=== PATIENT | male | born 1950 | race Caucasian/White ===

== ENCOUNTER 2018-10-16 13:59 | Inpatient (IN) ==
[2018-10-16] MEDS ORDERED: 0.9 % Sodium Chloride 1,000 ML IVC ONE (15:07)
[2018-10-16] MEDS ORDERED: Cefepime HCl 2,000 MG in Water for inj. (sterile) 20 ML IVP ONE (15:07)
--- NOTE | 2018-10-16 15:15 | Emergency Department Note ---
Disposition Clinical Impression: Necrosis of toe, Osteomyelitis Disposition: Admitted As Inpatient Condition: Good Time of Disposition: 15:44 Extremity Problem HPI - General Chief complaint: ED Extremity Problem,Nontraumatic Stated complaint: Bi-Lateral foot Diabetic ulcers Time Seen by Provider: 10/16/18 14:49 Source: patient Limitations: no limitations Nursing Notes Reviewed: Yes Vital Signs Reviewed: Yes - History of Present Illness HPI Narrative: Male patient is anxious and complaining of ulcers to his feet. Was seen at [facility] over the weekend and placed on antibiotics for them and was noted to be a new onset diabetes mellitus started on metformin. He is unaware of how long the setting going on however they do appear to have been present for quite some time. Denies any fevers or chills did follow-up with Dr. Calle our players [employer] representative this morning and was told to come to the emergency department. States that he does have pain to the toe on the left foot. He has no other symptoms currently. Denies any fevers or chills. Denies any nausea vomiting or diarrhea. Pain Scale: 1 - Related Data Home Medications Medication Instructions Recorded Confirmed Naproxen [Naprosyn] 500 mg PO DAILY PRN 10/16/18 10/16/18 Previous Rx's Medication Instructions Recorded metFORMIN [Glucophage] 500 mg PO BIDWM 30 Days #60 tablet 10/14/18 Allergies Allergy/AdvReac Type Severity Reaction Status Date / Time No Known Allergies Allergy Verified 10/14/18 11:59 All systems ED: reviewed and negative except as stated. Review of Systems: As Per HPI Constitutional: Denies: fever, chills Cardiovascular: Denies: chest pain Respiratory: Denies: cough, dyspnea Gastrointestinal: Denies: abdominal pain, nausea, vomiting, diarrhea Genitourinary: Denies: urgency Musculoskeletal: Reports: other (Left foot pain). Denies: back pain, neck pain Integumentary: Reports: lesions (2 second toe on both feet) Neurological: Denies: weakness Past Medical History - Past Medical History Attestation: Yes The following information was validated with the patient. Source: patient Medical history: Reports: diabetes Psychiatric history: Reports: no psych history - Social History Smoking Status: Current every day smoker Smokeless Tobacco Status: No Alcohol use: Reports: occasionally Drug use: Reports: none Physical Exam - General Limitations: no limitations General appearance: alert, in no apparent distress - Head Head exam: atraumatic, normocephalic, normal inspection - Eye Eye exam: Present: normal appearance, PERRL, EOMI - ENT ENT exam: normal exam, normal oropharynx, mucous membranes moist - Neck Neck exam: Present: normal inspection, full ROM, trachea midline. Absent: tenderness, meningismus - Chest Chest inspection: Present: normal inspection, symmetric chest wall rise - Respiratory Respiratory exam: Present: normal lung sounds bilaterally. Absent: respiratory distress, accessory muscle use - Cardiovascular Cardiovascular exam: Present: regular rate, normal rhythm, normal heart sounds - Abdominal Exam Abdominal exam: Present: soft, Non-Tender. Absent: tenderness, distention, guarding, rebound, rigidity, organomegaly, Bowman's sign, Rovsing's sign, tenderness at McBurney's Point - Expanded Upper Extremity Exam Shoulder exam: Present: normal inspection, full ROM Arm exam: Present: normal inspection, full ROM Elbow exam: Present: normal inspection, full ROM Forearm/Wrist exam: Present: normal inspection, full ROM Hand exam: Present: normal inspection, full ROM Vascular exam: Normal: capillary refill, radial pulse - Expanded Lower Extremity Exam Hip/Pelvis exam: Present: normal inspection, full ROM Upper leg exam: Present: normal inspection, full ROM Knee exam: Present: normal inspection, full ROM Lower leg exam: Present: normal inspection, full ROM Ankle exam: Present: normal inspection, full ROM Foot/toe exam: Present: full ROM, other (No crepitus noted to feet bilaterally.) 1 - swelling, erythema, blackend area to the distal most aspect. blanching of the toe. Sensation in tact 2 - swelling, erythema, blackend area to distal half. clear to purulent discharge. sensation intact 3 - erythema. Neurovascular/Tendon exam: Absent: motor deficit, sensory deficit, tendon deficit - Neurological Exam Neurological exam: Present: alert, oriented X3 - Psychiatric Psychiatric exam: Present: normal affect, normal mood - Skin Skin exam: Present: warm Course Course Narrative: Male patient sitting to the emergency department by podiatry for nonhealing wound to his lower extremity straight was placed on antibiotics over the weekend. New-onset diabetes. No history of peripheral vascular disease however the toes do have a black appearance to the distal aspect of them. The left toe does have a clear to purulent discharge noted. There is some erythema to the left forefoot. No crepitus noted throughout. He denies any shortness of breath or chest pain. Denies any fevers or chills. He otherwise appears well. We will get a basic lab workup on patient inclusive of blood cultures. We will start patient on vancomycin and cefepime at this time. - Consultations Consultation #1: I spoke with Dr Calle. He is aware of the patient. He is agreeable with our plan. Had no further suggestions. Requesting that we admit the patient to the hospitalist at this time. Time: 15:15 Consultation #2: Dr Lawrence accepted Pt in stable condition. Time: 15:58 Vital Signs Temperature 98.7 F 10/16/18 14:14 Pulse Rate 100 10/16/18 14:14 Respiratory Rate 18 10/16/18 14:14 Blood Pressure 155/79 10/16/18 14:14 O2 Sat by Pulse Oximetry 96 10/16/18 14:14 Temperature 98.7 F 10/16/18 14:14 Pulse Rate 89 10/16/18 15:37 Respiratory Rate 16 10/16/18 15:37 Blood Pressure 172/88 10/16/18 15:37 O2 Sat by Pulse Oximetry 100 10/16/18 15:37 Oxygen Delivery Oxygen Delivery Room Air Extremity Problem, Nontraumati - Medical Records Medical records reviewed: Yes I reviewed the patient's medical records. - Lab Data Lab results reviewed: Yes I reviewed the patient's lab results. Result diagrams: 10/16/18 15:16 10/16/18 15:16 Lab Results 10/16/18 10/16/18 10/16/18 Range/Units 15:16 15:16 15:16 WBC 14.8 H (4.3-11.1) K/mcL RBC 4.46 (4.19-5.50) M/mcL Hgb 13.4 (12.9-16.9) g/dL Hct 37.6 (37.5-50.1) % MCV 84.3 (83.0-100.0) fL MCH 30.0 (28.0-33.3) pg MCHC 35.6 H (31.6-35.5) g/dL RDW 12.4 (11.5-14.5) % Plt Count 318 (140-400) K/mcL MPV 10.0 (9.4-12.4) fL Immature Gran % 0.5 (0-4) % Seg Neutrophils % 85.4 % Lymphocytes % 7.1 % Monocytes % 6.6 % Eosinophils % 0.1 % Basophils % 0.3 % Neutrophils # 12.6 H (1.6-8.9) K/mcL Lymphocytes # 1.1 (0.6-4.6) K/mcL Monocytes # 1.0 (0.0-1.3) K/mcL Eosinophils # 0.0 (0.0-0.6) K/mcL Basophils # 0.0 (0.0-0.2) K/mcL Sodium 137 (136-145) mEq/L Potassium 4.2 (3.5-5.1) mEq/L Chloride 102 (98-107) mEq/L Carbon Dioxide 26 (23-29) mEq/L BUN 15 (8-23) mg/dL Creatinine 0.81 (0.70-1.30) mg/dL Est GFR ( Amer) > 60 (> 60) Est GFR (Non-Af Amer) > 60 (> 60) BUN/Creatinine Ratio 19 (6-26) Glucose 290 H (70-105) mg/dL Calculated Osmolality 295 (280-300) Lactic Acid 1.1 (0.5-2.2) mmol/L Calcium 9.0 (8.6-10.3) mg/dL Phosphorus 3.4 (2.7-4.5) mg/dL Magnesium 1.6 (1.6-2.6) mg/dL Total Bilirubin 1.3 H (0.3-1.0) mg/dL Direct Bilirubin 0.3 H (0.0-0.2) mg/dL Indirect Bilirubin 1.0 (0.0-1.2) mg/dL AST 13 (13-39) Units/L ALT 13 (7-52) Units/L Alkaline Phosphatase 92 (34-104) Units/L Serum Total Protein 6.5 (6.4-8.9) g/dL Albumin 3.5 (3.5-5.7) g/dL Globulin 3.0 (2.4-3.5) g/dL Albumin/Globulin Ratio 1.2 (1.1-2.2) - Radiology Data Radiology results reviewed: Yes I reviewed the patient's radiology results. - EKG Data EKG attestation: Yes I reviewed and interpreted this EKG. EKG results narrative: Normal sinus rhythm at a rate 88. MS interval is 170. QRS duration is 81. QT is 365. QTC is 442. No signs of acute ischemia. Good R-wave progression. No signs of WPW or Brugada. No significant change from previous EKG dated 02/19/2003. Attestation Statement - Attestation Attestation: I, Sai Freeman, examined this patient and my medical decision-making was reviewed with the AUTO TRANSPORT DRIVER/PA/Advanced Practice Nurse/Resident Physician. I agree with the documented findings, disposition and treatment plan as described except to the extent set forth below. 68-year-old male presents emergency Department for likely gangrenous necrosis to the toes of bilateral feet. Patient's symptoms have been present worsening over the past few weeks to months. He was evaluated by the players club representative 2 cm emergency department for further evaluation and admission to the hospital for likely surgery. Patient was started on antibiotics emergency department. He feels comfortable with the plan for admission to hospital for further care and evaluation.
[2018-10-16] MEDS ORDERED: Tdap (Boostrix) Vaccine 0.5 ML SYRINGE IM ONE (15:18)
[2018-10-16 15:34] LABS: Basophils % 0.3 %; Eosinophils % 0.1 %; Hematocrit 37.6 % (37.5-50.1); Hemoglobin 13.4 g/dL (12.9-16.9); Immature Granulocytes % 0.5 % (0-4); Lymphocytes # 1.1 K/mcL (0.6-4.6); Lymphocytes % 7.1 %; Mean Corpuscular HGB Conc 35.6 g/dL (31.6-35.5); Mean Corpuscular Volume 84.3 fL (83.0-100.0); Monocytes % 6.6 %; Neutrophils # 12.6 K/mcL (1.6-8.9); Platelet Count 318 K/mcL (140-400); Red Blood Count 4.46 M/mcL (4.19-5.50); Red Cell Distribution Width 12.4 % (11.5-14.5); Segmented Neutrophils % 85.4 %; White Blood Count 14.8 K/mcL (4.3-11.1)
[2018-10-16 15:54] LABS: Alanine Aminotransferase 13 Units/L (7-52); Albumin 3.5 g/dL (3.5-5.7); Albumin/Globulin Ratio 1.2 (1.1-2.2); Alkaline Phosphatase 92 Units/L (34-104); Aspartate Amino Transferase 13 Units/L (13-39); BUN/Creatinine Ratio 19 (6-26); Bilirubin,Direct 0.3 mg/dL (0.0-0.2); Bilirubin,Total 1.3 mg/dL (0.3-1.0); Blood Urea Nitrogen 15 mg/dL (8-23); Carbon Dioxide 26 mEq/L (23-29); Chloride 102 mEq/L (98-107); Glucose 290 mg/dL (70-105); Magnesium 1.6 mg/dL (1.6-2.6); Osmolality,Calculated 295 (280-300); Phosphorous 3.4 mg/dL (2.7-4.5); Potassium 4.2 mEq/L (3.5-5.1); Sodium 137 mEq/L (136-145); Total Protein 6.5 g/dL (6.4-8.9); eGFR For African Americans > 60 (> 60); eGFR For Non-African Americans > 60 (> 60)
[2018-10-16] MEDS ORDERED: Acetaminophen 325 MG TABLET PO PRN (17:17)
[2018-10-16] MEDS ORDERED: Naloxone 0.4 MG/ML INJ IVP PRN (17:17)
[2018-10-16] MEDS ORDERED: traMADol 50 MG TABLET PO PRN (17:29)
[2018-10-16] MEDS ORDERED: Dextrose Gel 15 GM/37.5 ML TUBE PO PRN ×2 (17:31)
[2018-10-16] MEDS ORDERED: D5% in Water 1,000 ML IVC PRN (17:31)
[2018-10-16] MEDS ORDERED: *HR* Dextrose 50 % in Water (Syg) 50 ML SYRINGE IVP PRN (17:31)
--- NOTE | 2018-10-16 17:40 | Internal Med History&Physical ---
<Anderson Hodges Violette - Last Filed: 10/16/18 17:37> Date of Encounter: 10/16/18 Time of Encounter: 17:38 Internal Medicine - H&P: HPI Chief complaint: foot ulcers Admitted From: Emergency Dept Plans for Post Hospital Care: Home History of present illness: Mr. Peña is a 68 year old male with a past medical history of diabetes who presented to the emergency department with the chief complaint of bilateral toe ulcers that have been present for approximately 1 month. There is an ulcer present on the left second toe and the right third toe, he does not report traumatic onset, he states they have been worsening over the last month, they are minimally painful, have had some drainage. He has been treated outpatient with amoxicillin without improvement. He did see fur dressing supervisor Dr. Calle today who sent the patient to the emergency department to be admitted for IV antibiotics. Patient has not had previous issues with foot ulcerations. He denies any associated fever, chills, headache or lightheadedness, nausea or vomiting, chest pain or shortness of breath. Chest x-ray and bilateral feet x-rays were performed in the emergency department. Chest x-ray demonstrated no acute process, right third toe had lucency in the distal phalanx possibly representing acute osteomyelitis, left second toe did not have evidence of osteomyelitis. He was started on cefepime and vancomycin in the emergency department along with a 1 L bolus of normal saline. On my evaluation the patient did confirm the above history. He also denied drug or significant alcohol use, reported smoking a tobacco pipe. He states his mother had diabetes but denies history of diabetes in other family members. I informed him our plan was to admit him, continue IV antibiotics, and have podiatry see him in the morning for recommendations on further treatment. He stated he understood and agreed with the plan of care. Past Med Surg Social Fam HX - Past Medical History Medical history: diabetes Psychiatric history: no psych history - Social History Smoking Status: Current every day smoker Smokeless Tobacco Status: No Alcohol use: occasionally Drug use: none - Family History Mother Hx Family Endocrine Disorder: Yes (Diabetes) Internal Medicine - H&P: Meds metFORMIN [Glucophage] 500 mg PO BIDWM 30 Days #60 tablet 10/14/18 [Rx] Naproxen [Naprosyn] 500 mg PO DAILY PRN 10/16/18 [History] Allergy/AdvReac Type Severity Reaction Status Date / Time No Known Allergies Allergy Verified 10/14/18 11:59 All Systems PM: A 10-system review of systems was performed and is negative for pertinent findings except as documented above in the HPI. Review of systems: 10 point review of systems negative except as otherwise mentioned in the history of present illness. - Constitutional Vitals: Temp Pulse Resp BP Pulse Ox 98.7 F 90 16 186/86 99 10/16/18 14:14 10/16/18 16:35 10/16/18 16:35 10/16/18 16:35 10/16/18 16:35 Exam: No acute distress, alert and oriented 3 Pupils equal and reactive to light, extraocular movements intact Heart in regular rate and rhythm without murmur or gallop auscultated Lungs clear to auscultation without specific adventitia identified Abdomen soft and nontender with normal bowel sounds present Bilateral lower extremities nonedematous with sensation intact Skin warm and dry without defects except as noted below Left second toe is edematous and cyanotic with black eschar present and multiple open areas with serous sanguinous and purulent drainage present Right third toe is edematous and cyanotic with black eschar present and multiple open areas with serosanguineous and purulent drainage present as well Both toes appear to have areas of necrosis, the toes are minimally tender to palpation, no areas of ulceration are noted elsewhere on the feet Internal Med - H&P Results - Labs CBC & Chem 7: 10/16/18 15:16 10/16/18 15:16 Labs: Short CBC 10/16/18 Range/Units 15:16 WBC 14.8 H (4.3-11.1) K/mcL Hgb 13.4 (12.9-16.9) g/dL Hct 37.6 (37.5-50.1) % Plt Count 318 (140-400) K/mcL Neutrophils # 12.6 H (1.6-8.9) K/mcL BMP 10/16/18 15:16 Sodium 137 Potassium 4.2 Chloride 102 Carbon Dioxide 26 BUN 15 Creatinine 0.81 Glucose 290 H Calcium 9.0 Liver Function 10/16/18 Range/Units 15:16 Total Bilirubin 1.3 H (0.3-1.0) mg/dL Direct Bilirubin 0.3 H (0.0-0.2) mg/dL AST 13 (13-39) Units/L ALT 13 (7-52) Units/L Alkaline Phosphatase 92 (34-104) Units/L Albumin 3.5 (3.5-5.7) g/dL - Impressions ITS Impressions Foot X-Ray 10/16/18 15:10 IMPRESSION: 1. No acute cardiopulmonary disease. 2. Stable mild lucency involving the distal phalanx of the right 3rd toe, possibly presenting acute osteomyelitis. Suggest clinical correlation and consider further characterization with a follow-up right foot MRI. There remain multiple punctate radiodensities within the soft tissues of the right 3rd toe, possibly retained foreign bodies. 3. No radiographic evidence of osteomyelitis involving the left foot. There does remain a stable unchanged age-indeterminate fracture of the 2nd middle phalanx of the left foot. D/ /16/2018 16:12:07 Kelby Grajeda MD / reta Interpreting Provider: Kelby Grajeda MD Foot X-Ray 10/16/18 15:10 IMPRESSION: 1. No acute cardiopulmonary disease. 2. Stable mild lucency involving the distal phalanx of the right 3rd toe, possibly presenting acute osteomyelitis. Suggest clinical correlation and consider further characterization with a follow-up right foot MRI. There remain multiple punctate radiodensities within the soft tissues of the right 3rd toe, possibly retained foreign bodies. 3. No radiographic evidence of osteomyelitis involving the left foot. There does remain a stable unchanged age-indeterminate fracture of the 2nd middle phalanx of the left foot. D/ : / 10/16/2018 16:12:07 Kelby Grajeda MD / reta Interpreting Provider: Kelby Grajeda MD Chest X-Ray 10/16/18 15:13 IMPRESSION: 1. No acute cardiopulmonary disease. 2. Stable mild lucency involving the distal phalanx of the right 3rd toe, possibly presenting acute osteomyelitis. Suggest clinical correlation and consider further characterization with a follow-up right foot MRI. There remain multiple punctate radiodensities within the soft tissues of the right 3rd toe, possibly retained foreign bodies. 3. No radiographic evidence of osteomyelitis involving the left foot. There does remain a stable unchanged age-indeterminate fracture of the 2nd middle phalanx of the left foot. D/ / 10/16/2018 16:12:07 Kel[facility]eda MD / [facility] Inter[facility]ting Provider: Kelby Grajeda MD - Assessment and Plan (1) Osteomyelitis Current Visit: Yes Status: Suspected Assessment and plan: Patient presented to the emergency department with wounds to the left second and third right toes These have been present for a month and appeared to be chronic diabetic ulcers They have been worsening over the month, and on exam appear necrotic He did see the fur dressing supervisor outpatient who recommended presenting to the emergency department X-rays showed signs concerning for osteomyelitis, vancomycin and cefepime were initiated Patient was admitted to the hospital service and podiatry was consulted Patient did have one reading of tachycardia and does have leukocytosis Clinically the patient does not appear septic, is afebrile, and is also hypertensive He was given 1 L fluid bolus in the emergency department, we will not continue fluid boluses due to clinically not appearing septic and hypertension We did continue IV cefepime and IV vancomycin Patient has no previous cardiovascular history and has no limitations when asked about metabolic equivalents We did start low-dose beta sixto for hypertension, the patient does not appear to have any contraindications to surgery if that is necessary Patient is nothing by mouth at midnight in anticipation of podiatry intervention tomorrow if necessary Qualifiers: Osteomyelitis type: unspecified type Osteomyelitis location: foot Laterality: unspecified laterality Qualified Code(s): M86.9 - Osteomyelitis, unspecified (2) Foot ulcer Current Visit: Yes Status: Acute Qualifiers: Laterality: unspecified laterality Non-pressure ulcer stage: unspecified non-pressure ulcer stage Qualified Code(s): L97.509 - Non-pressure chronic ulcer of other part of unspecified foot with unspecified severity (3) Diabetes Current Visit: Yes Status: Chronic Qualifiers: Diabetes mellitus type: type 2 Diabetes mellitus middle or intermediate school principal insulin use: without middle or intermediate school principal use Diabetes mellitus complication status: with skin complications Diabetes mellitus complication detail: with foot ulcer Qualified Code(s): E11.621 - Type 2 diabetes mellitus with foot ulcer; L97.509 - Non-pressure chronic ulcer of other part of unspecified foot with unspecified severity - Time Spent With Patient Total time spent is greater than 50% in coordination of care (as documented) at patient's floor/unit and/or counseling patient: <Chino Shepard - Last Filed: 10/16/18 18:47> Date of Encounter: 10/16/18 Internal Medicine - H&P: HPI History of present illness: Mr. Peña is a 68 year old male All Systems PM: A 10-system review of systems was performed and is negative for pertinent findings except as documented above in the HPI. - Constitutional Vitals: Temp Pulse Resp BP Pulse Ox 98.7 F 90 16 186/86 99 10/16/18 14:14 10/16/18 16:35 10/16/18 16:35 10/16/18 16:35 10/16/18 16:35 Internal Med - H&P Results - Labs CBC & Chem 7: 10/16/18 15:16 10/16/18 15:16 Labs: Short CBC 10/16/18 Range/Units 15:16 WBC 14.8 H (4.3-11.1) K/mcL Hgb 13.4 (12.9-16.9) g/dL Hct 37.6 (37.5-50.1) % Plt Count 318 (140-400) K/mcL Neutrophils # 12.6 H (1.6-8.9) K/mcL BMP 10/16/18 15:16 Sodium 137 Potassium 4.2 Chloride 102 Carbon Dioxide 26 BUN 15 Creatinine 0.81 Glucose 290 H Calcium 9.0 Liver Function 10/16/18 Range/Units 15:16 Total Bilirubin 1.3 H (0.3-1.0) mg/dL Direct Bilirubin 0.3 H (0.0-0.2) mg/dL AST 13 (13-39) Units/L ALT 13 (7-52) Units/L Alkaline Phosphatase 92 (34-104) Units/L Albumin 3.5 (3.5-5.7) g/dL - Impressions ITS Impressions Foot X-Ray 10/16/18 15:10 IMPRESSION: 1. No acute cardiopulmonary disease. 2. Stable mild lucency involving the distal phalanx of the right 3rd toe, possibly presenting acute osteomyelitis. Suggest clinical correlation and consider further characterization with a follow-up right foot MRI. There remain multiple punctate radiodensities within the soft tissues of the right 3rd toe, possibly retained foreign bodies. 3. No radiographic evidence of osteomyelitis involving the left foot. There does remain a stable unchanged age-indeterminate fracture of the 2nd middle phalanx of the left foot. D/ /16/2018 16:12:07 Kelby Grajeda MD / reta Interpreting Provider: Kelby Grajeda MD Foot X-Ray 10/16/18 15:10 IMPRESSION: 1. No acute cardiopulmonary disease. 2. Stable mild lucency involving the distal phalanx of the right 3rd toe, possibly presenting acute osteomyelitis. Suggest clinical correlation and consider further characterization with a follow-up right foot MRI. There remain multiple punctate radiodensities within the soft tissues of the right 3rd toe, possibly retained foreign bodies. 3. No radiographic evidence of osteomyelitis involving the left foot. There does remain a stable unchanged age-indeterminate fracture of the 2nd middle phalanx of the left foot. D/ /16/2018 16:12:07 Kelby Grajeda MD / reta Interpreting Provider: Kelby Grajead MD Chest X-Ray 10/16/18 15:13 IMPRESSION: 1. No acute cardiopulmonary disease. 2. Stable mild lucency involving the distal phalanx of the right 3rd toe, possibly presenting acute osteomyelitis. Suggest clinical correlation and consider further characterization with a follow-up right foot MRI. There remain multiple punctate radiodensities within the soft tissues of the right 3rd toe, possibly retained foreign bodies. 3. No radiographic evidence of osteomyelitis involving the left foot. There does remain a stable unchanged age-indeterminate fracture of the 2nd middle phalanx of the left foot. D/ /16/2018 16:12:07 Kelby Grajeda MD / reta Interpreting Provider: Kelby Grajeda MD - Assessment and Plan (1) Diabetes Current Visit: Yes Status: Chronic Qualifiers: Diabetes mellitus type: type 2 Diabetes mellitus jail insulin use: without middle or intermediate school principal use Diabetes mellitus complication status: with skin complications Diabetes mellitus complication detail: with foot ulcer Qualified Code(s): E11.621 - Type 2 diabetes mellitus with foot ulcer; L97.509 - Non-pressure chronic ulcer of other part of unspecified foot with unspecified severity (2) Osteomyelitis Current Visit: Yes Status: Suspected Qualifiers: Osteomyelitis type: unspecified type Osteomyelitis location: foot Laterality: unspecified laterality Qualified Code(s): M86.9 - Osteomyelitis, unspecified (3) Tobacco abuse Current Visit: Yes Status: Chronic - Time Spent With Patient Total time spent is greater than 50% in coordination of care (as documented) at patient's floor/unit and/or counseling patient: - Attending Attestation I examined this patient and my medical decision-making was reviewed with the Resident Physician on 10/16/18. I agree with the documented findings, disposition and treatment plan as described except to the extent set forth below. Mr Peña is 68 y/o male with DM sent to ED due to infected bilateral toes. He was started on IV abx and placed in hospital. No gas gangrene on xray. To go to OR tomorrow. He denies CP, SOB, dizziness. Exam Alert. Comfortable NC. Mucus membranes dry EOMI. Neck supple Heart reg and not tachy No wheeze abd soft Erythema bilateral feet - described above. I/P 1. Cellulitis and possible OM both feet - IV abx started. Podiatry consult. NPO midnight. 2. DM - coverage ordered. Further diagnoses and plan as above.
[2018-10-17] MEDS: Cefepime HCl 2,000 MG in Water for inj. (sterile) 20 ML IVP SCH ×2 (04:11→15:06)
[2018-10-17 06:12] LABS: Basophils % 0.4 %; Eosinophils # 0.1 K/mcL (0.0-0.6); Eosinophils % 1.1 %; Hematocrit 32.7 % (37.5-50.1); Immature Granulocytes % 0.6 % (0-4); Lymphocytes # 1.4 K/mcL (0.6-4.6); Lymphocytes % 13.8 %; Mean Corpuscular HGB Conc 35.8 g/dL (31.6-35.5); Mean Corpuscular Hemoglobin 30.9 pg (28.0-33.3); Mean Corpuscular Volume 86.3 fL (83.0-100.0); Mean Platelet Volume 10.2 fL (9.4-12.4); Monocytes % 9.9 %; Neutrophils # 7.4 K/mcL (1.6-8.9); Platelet Count 275 K/mcL (140-400); Red Blood Count 3.79 M/mcL (4.19-5.50); Red Cell Distribution Width 12.5 % (11.5-14.5); Segmented Neutrophils % 74.2 %
[2018-10-17 06:13] LABS: Hemoglobin 11.7 g/dL (12.9-16.9)
[2018-10-17 06:40] LABS: BUN/Creatinine Ratio 19 (6-26); Blood Urea Nitrogen 14 mg/dL (8-23); Calcium 8.4 mg/dL (8.6-10.3); Carbon Dioxide 24 mEq/L (23-29); Chloride 106 mEq/L (98-107); Glucose 233 mg/dL (70-105); Osmolality,Calculated 296 (280-300); Potassium 4.3 mEq/L (3.5-5.1); Sodium 139 mEq/L (136-145); eGFR For African Americans > 60 (> 60); eGFR For Non-African Americans > 60 (> 60)
[2018-10-17] MEDS: Insulin LISPRO 300 UNITS/3 ML VIAL SQ SCH ×3 (08:25→17:17)
--- NOTE | 2018-10-17 08:43 | Internal Med Progress Note ---
<Anderson Hodges - Last Filed: 10/17/18 15:16> Hospitalist Progress Note - Encounter Date of Encounter: 10/17/18 Time of Encounter: 08:42 - Subjective Interval History: No acute events overnight or acute complaints this morning. Patient denies fever or chills. He still has mild pain in his infected toes. He understands the plan for podiatry to take him to surgery tomorrow. He also understands our plan to clear him cardiovascularly for surgery tomorrow. - Exam Vitals: Temp Pulse Resp BP Pulse Ox 98.2 F 75 16 168/93 97 10/17/18 07:46 10/17/18 07:46 10/17/18 07:46 10/17/18 07:46 10/17/18 07:46 Exam: No acute distress, alert and oriented 3 Pupils equal and reactive to light, extraocular movements intact Heart in regular rate and rhythm without murmur or gallop auscultated Lungs clear to auscultation without specific adventitia identified Abdomen soft and nontender with normal bowel sounds present Bilateral lower extremities nonedematous with sensation intact Skin warm and dry without defects except as noted below Left second toe is edematous and cyanotic with black eschar present and multiple open areas with serous sanguinous and purulent drainage present Right third toe is edematous and cyanotic with black eschar present and multiple open areas with serosanguineous and purulent drainage present as well Both toes appear to have areas of necrosis, the toes are minimally tender to palpation, no areas of ulceration are noted elsewhere on the feet - Assessment and Plan (1) Osteomyelitis Current Visit: Yes Status: Suspected Assessment and Plan: Patient presented to the emergency department with wounds to the left second and third right toes These have been present for a month and appeared to be chronic diabetic ulcers They have been worsening over the month, and on exam appear necrotic He did see the culinary manager outpatient who recommended presenting to the emergency department X-rays showed signs concerning for osteomyelitis, vancomycin and cefepime were initiated Patient was admitted to the hospital service and podiatry was consulted IV cefepime and vancomycin were started for broad-spectrum coverage Labs today showed resolution of leukocytosis, blood cultures pending Podiatry has evaluated the patient is planning surgery tomorrow Otherwise no further changes to medical management plan (2) EKG abnormality Current Visit: No Status: Chronic Assessment and Plan: EKG on admission reviewed and demonstrating nonspecific ST changes in the lateral leads suspicious for remote infarct Patient has no previous diagnosis of coronary artery disease or heart failure, and does not complain of ACS-type symptoms RCRI performed and patient is class I, 3.9% risk of surgical complications Podiatry requested echocardiogram for cardiac clearance, this is ordered and pending (3) Foot ulcer Current Visit: Yes Status: Acute (4) Diabetes Current Visit: Yes Status: Chronic Assessment and Plan: Patient is currently on diabetic diet, before meals at bedtime Accu-Cheks, low- dose sliding scale insulin protocol DVT Prophylaxis: Sequential compression devices - Time Spent with Patient Total time spent is greater than 50% in coordination of care (as documented) at patient's floor/unit and/or counseling patient: Internal Medicine: Result - Labs CBC & Chem 7: 10/17/18 05:16 10/17/18 05:16 Labs: Short CBC 10/16/18 10/17/18 Range/Units 15:16 05:16 WBC 14.8 H 10.0 (4.3-11.1) K/mcL Hgb 13.4 11.7 L D (12.9-16.9) g/dL Hct 37.6 32.7 L (37.5-50.1) % Plt Count 318 275 (140-400) K/mcL Neutrophils # 12.6 H 7.4 (1.6-8.9) K/mcL BMP 10/16/18 10/17/18 15:16 05:16 Sodium 137 139 Potassium 4.2 4.3 Chloride 102 106 Carbon Dioxide 26 24 BUN 15 14 Creatinine 0.81 0.73 Glucose 290 H 233 H Calcium 9.0 8.4 L Liver Function 10/16/18 Range/Units 15:16 Total Bilirubin 1.3 H (0.3-1.0) mg/dL Direct Bilirubin 0.3 H (0.0-0.2) mg/dL AST 13 (13-39) Units/L ALT 13 (7-52) Units/L Alkaline Phosphatase 92 (34-104) Units/L Albumin 3.5 (3.5-5.7) g/dL - Impressions Impressions Foot X-Ray 10/16/18 15:10 IMPRESSION: 1. No acute cardiopulmonary disease. 2. Stable mild lucency involving the distal phalanx of the right 3rd toe, possibly presenting acute osteomyelitis. Suggest clinical correlation and consider further characterization with a follow-up right foot MRI. There remain multiple punctate radiodensities within the soft tissues of the right 3rd toe, possibly retained foreign bodies. 3. No radiographic evidence of osteomyelitis involving the left foot. There does remain a stable unchanged age-indeterminate fracture of the 2nd middle phalanx of the left foot. D/ /16/2018 16:12:07 Kelby Grajeda MD / reta Interpreting Provider: Kelby Grajeda MD Foot X-Ray 10/16/18 15:10 IMPRESSION: 1. No acute cardiopulmonary disease. 2. Stable mild lucency involving the distal phalanx of the right 3rd toe, possibly presenting acute osteomyelitis. Suggest clinical correlation and consider further characterization with a follow-up right foot MRI. There remain multiple punctate radiodensities within the soft tissues of the right 3rd toe, possibly retained foreign bodies. 3. No radiographic evidence of osteomyelitis involving the left foot. There does remain a stable unchanged age-indeterminate fracture of the 2nd middle phalanx of the left foot. D/ /16/2018 16:12:07 Kelby Grajeda MD / reta Interpreting Provider: Kelby Grajeda MD Chest X-Ray 10/16/18 15:13 IMPRESSION: 1. No acute cardiopulmonary disease. 2. Stable mild lucency involving the distal phalanx of the right 3rd toe, possibly presenting acute osteomyelitis. Suggest clinical correlation and consider further characterization with a follow-up right foot MRI. There remain multiple punctate radiodensities within the soft tissues of the right 3rd toe, possibly retained foreign bodies. 3. No radiographic evidence of osteomyelitis involving the left foot. There does remain a stable unchanged age-indeterminate fracture of the 2nd middle phalanx of the left foot. D/ /16/2018 16:12:07 Kelby Grajeda MD / reta Interpreting Provider: Kelby Grajeda MD Consult Discharge Plan - Plan Referrals: NONE,PCP [Primary Care Provider] - <Vani Givens - Last Filed: 10/17/18 15:37> Hospitalist Progress Note - Encounter Date of Encounter: 10/17/18 - Exam Vitals: Temp Pulse Resp BP Pulse Ox 98.4 F 73 15 174/89 99 10/17/18 15:18 10/17/18 15:18 10/17/18 15:18 10/17/18 15:18 10/17/18 15:18 - Assessment and Plan (1) Osteomyelitis Current Visit: Yes Status: Suspected (2) Diabetes Current Visit: Yes Status: Chronic (3) Tobacco abuse Current Visit: Yes Status: Chronic - Time Spent with Patient Total time spent is greater than 50% in coordination of care (as documented) at patient's floor/unit and/or counseling patient: Internal Medicine: Result - Labs CBC & Chem 7: 10/17/18 05:16 10/17/18 05:16 Labs: Short CBC 10/16/18 10/17/18 Range/Units 15:16 05:16 WBC 14.8 H 10.0 (4.3-11.1) K/mcL Hgb 13.4 11.7 L D (12.9-16.9) g/dL Hct 37.6 32.7 L (37.5-50.1) % Plt Count 318 275 (140-400) K/mcL Neutrophils # 12.6 H 7.4 (1.6-8.9) K/mcL BMP 10/16/18 10/17/18 15:16 05:16 Sodium 137 139 Potassium 4.2 4.3 Chloride 102 106 Carbon Dioxide 26 24 BUN 15 14 Creatinine 0.81 0.73 Glucose 290 H 233 H Calcium 9.0 8.4 L Liver Function 10/16/18 Range/Units 15:16 Total Bilirubin 1.3 H (0.3-1.0) mg/dL Direct Bilirubin 0.3 H (0.0-0.2) mg/dL AST 13 (13-39) Units/L ALT 13 (7-52) Units/L Alkaline Phosphatase 92 (34-104) Units/L Albumin 3.5 (3.5-5.7) g/dL - Impressions Impressions Foot X-Ray 10/16/18 15:10 IMPRESSION: 1. No acute cardiopulmonary disease. 2. Stable mild lucency involving the distal phalanx of the right 3rd toe, possibly presenting acute osteomyelitis. Suggest clinical correlation and consider further characterization with a follow-up right foot MRI. There remain multiple punctate radiodensities within the soft tissues of the right 3rd toe, possibly retained foreign bodies. 3. No radiographic evidence of osteomyelitis involving the left foot. There does remain a stable unchanged age-indeterminate fracture of the 2nd middle phalanx of the left foot. D/ /16/2018 16:12:07 Kelby Grajeda MD / reta Interpreting Provider: Kelby Grajeda MD Foot X-Ray 10/16/18 15:10 IMPRESSION: 1. No acute cardiopulmonary disease. 2. Stable mild lucency involving the distal phalanx of the right 3rd toe, possibly presenting acute osteomyelitis. Suggest clinical correlation and consider further characterization with a follow-up right foot MRI. There remain multiple punctate radiodensities within the soft tissues of the right 3rd toe, possibly retained foreign bodies. 3. No radiographic evidence of osteomyelitis involving the left foot. There does remain a stable unchanged age-indeterminate fracture of the 2nd middle phalanx of the left foot. D/ /16/2018 16:12:07 Kelby Grajeda MD / reta Interpreting Provider: Kelby Grajeda MD Chest X-Ray 10/16/18 15:13 IMPRESSION: 1. No acute cardiopulmonary disease. 2. Stable mild lucency involving the distal phalanx of the right 3rd toe, possibly presenting acute osteomyelitis. Suggest clinical correlation and consider further characterization with a follow-up right foot MRI. There remain multiple punctate radiodensities within the soft tissues of the right 3rd toe, possibly retained foreign bodies. 3. No radiographic evidence of osteomyelitis involving the left foot. There does remain a stable unchanged age-indeterminate fracture of the 2nd middle phalanx of the left foot. D/ /16/2018 16:12:07 Kelby Grajeda MD / reta Interpreting Provider: Kelby Grajeda MD - Attending Attestation I examined this patient and my medical decision-making was reviewed with the Resident Physician on Dr Hodges. I agree with the documented findings, disp osition and treatment plan as described except to the extent set forth below. Mr Peña is 68 y/o male with DM admitted for osteomyleitis requiring surgical intervention awake, pain controlled, denies fevers or chills, no n/v. denies any cp or sob at home with exertion. no le edema gen- alert, awake,appears stated age cv- reg rate and rhythm, normal s1,s2, no murmurs appreciated, no le edema lungs- ctabl, no wheezing, rhonchi or crackles, normal resp effort on room air skin- necrotic tissue multiple toes, minimal erythema dorsum of left foot, + increased warmth neuro- AAOx3 1. Cellulitis and possible OM both feet -cont IV abx, to OR with Podiatry in AM 2. DM - hold metformin, SSI ordered, adjust insulin daily as needed 3. Consistently elevated bps in the absence of pain- begin HCTZ and will require outpt fu for HTN management 4. Pre Op risk assessment- RCRI score zero, lowest risk for post operative 30 d cardiac complications- ekg reviewed, he has no sxs at home, as per podiatry request will obtain echo pre operatively, suspect will need no other work up Further diagnoses and plan as noted by resident <Anderson Hodges - Last Filed: 10/17/18 15:16> (1) Osteomyelitis Qualifiers: Osteomyelitis type: unspecified type Osteomyelitis location: foot Laterality: unspecified laterality Qualified Code(s): M86.9 - Osteomyelitis, unspecified (3) Foot ulcer Qualifiers: Laterality: unspecified laterality Non-pressure ulcer stage: unspecified non- pressure ulcer stage Qualified Code(s): L97.509 - Non-pressure chronic ulcer of other part of unspecified foot with unspecified severity (4) Diabetes Qualifiers: Diabetes mellitus type: type 2 Diabetes mellitus meterman insulin use: without meterman use Diabetes mellitus complication status: with skin complications Diabetes mellitus complication detail: with foot ulcer Qualified Code(s): E11.621 - Type 2 diabetes mellitus with foot ulcer; L97.509 - Non- pressure chronic ulcer of other part of unspecified foot with unspecified severity <Vani Givens - Last Filed: 10/17/18 15:37> (1) Osteomyelitis Qualifiers: Osteomyelitis type: unspecified type Osteomyelitis location: foot Laterality: unspecified laterality Qualified Code(s): M86.9 - Osteomyelitis, unspecified (2) Diabetes Qualifiers: Diabetes mellitus type: type 2 Diabetes mellitus meterman insulin use: without meterman use Diabetes mellitus complication status: with skin complications Diabetes mellitus complication detail: with foot ulcer Qualified Code(s): E11.621 - Type 2 diabetes mellitus with foot ulcer; L97.509 - Non- pressure chronic ulcer of other part of unspecified foot with unspecified severity
--- NOTE | 2018-10-17 09:50 | Podiatry Consult Note ---
Date of Encounter: 10/17/18 Time of Encounter: 09:25 Assessment and Plan (1) Osteomyelitis Current visit: Yes Status: Suspected Assessment: -Necrotic ulcer noted to right #3, edema, erythema, dry flaking skin, and crusted hyperkeratotic tissue -Gangrene noted left #2, edema, erythema extending into forefoot, no streaking, appears dusky -PT/DP pulses per Doppler -Cap refill less than 3 seconds -Skin warm from tibia to toes -WBC 10.0. afebrile -Blood culture preliminary -X ray of left and right foot Stable mild lucency involving the distal phalanx of the right 3rd toe, possibly presenting acute osteomyelitis. There remain multiple punctate radiodensities within the soft tissues of the right 3rd toe, possibly retained foreign bodies. 3. No radiographic evidence of osteomyelitis involving the left foot. There does remain a stable unchanged age-indeterminate fracture of the 2nd middle phalanx of the left foot. Plan: -OR tomorrow with Dr. Calle -NPO after midnight -ESR, CRP -Staff to assist patient with shower and thoroughly clean with hibiclens. After the shower he is to soak his feet in water and hibiclens for 20 minutes. Wash feet again and apply 2x2 dressing to left 2nd and right 3rd digits. Secure with gauze wrap and medipore tape. -Recommend echocardiogram to rule our CVD prior to surger Qualifiers: Osteomyelitis type: unspecified type Osteomyelitis location: foot Laterality: unspecified laterality Qualified Code(s): M86.9 - Osteomyelitis, unspecified (2) Diabetes Current visit: Yes Status: Chronic Assessment: -Blood glucose 233 -A1c 8.6 on 10/14/2018 Plan: -Tight glycemic control to promote healing and prevent further complications, managed by internal medicine Qualifiers: Diabetes mellitus type: type 2 Diabetes mellitus half-way insulin use: wit vikash half-way use Diabetes mellitus complication status: with skin compl ications Diabetes mellitus complication detail: with foot ulcer Qualified Code(s): E11.621 - Type 2 diabetes mellitus with foot ulcer; L97.509 - Non- pressure chronic ulcer of other part of unspecified foot with unspecified severity History of Present Illness HPI: Mr. Peña is a 68 year old male who presented to the Emergency Room yesterday after being evaluated by Dr. Calle in Podiatry for bilateral ulcers to toes. He does have a past medical history of diabetes. Patient reports the ulcers start ed one month ago. The ulcer on the left foot started after he tried to pop a blister that was filled with gas. He stated he peeled it back to far and it started bleeding. He denies any traumatic injury. There is an ulcer noted to the left 2nd toe and right 3rd toe. He reports some pain to the left plantar aspect of the forefoot. He reports the ulcers have been worsening over the last month, and have had some drainage. He has been treated outpatient with amoxicillin without improvement. He denies any associated fever, chills, nausea, vomiting, diarrhea, chest pain, shortness of breath or calf pain. Chest x-ray and bilateral feet x-rays were performed in the emergency department. Cris st x-ray demonstrated no acute process, right third toe had lucency in the distal phalanx possibly representing acute osteomyelitis, left second toe did not have evidence of osteomyelitis. A CBC revealed a WBC of 14.8. He was started on cefepime and vancomycin in the emergency department along with a 1 L bolus of normal saline. He reports he smokes a pipe 2-4 times per day, uses alcohol rarely, and denies illicit drug use. Past Med Surg Social Fam HX - Past Medical History Medical history: diabetes Additional medical history: Pt states they were diabetic for roughly 15 years. Psychiatric history: no psych history - Past Surgical History Surgical History: no surgical history - Social History Smoking Status: Current every day smoker Smokeless Tobacco Status: No Alcohol use: occasionally Drug use: none - Family History Mother History Unknown: Yes Adopted: No Living Status: Hx Family Cardiac Disorders: No Hx Family Respiratory Disorders: No Hx Family Cancer: Yes Hx Family GI Disorders: No Hx Family Genitourinary Disorders: No Hx Family Endocrine Disorder: Yes (Diabetes) Hx Family Musculoskeletal Disorders: No Hx Family Neuromuscular Disorders: No Hx Family Neurologic Disorders: No Hx Family HEENT Disorders: No Hx Family Autoimmune Disorders: No Hx Family Reproductive Disorders: No Hx Family Psychosocial Disorders: No Hx Family Medical Disorders: No Medications and Allergies metFORMIN [Glucophage] 500 mg PO BIDWM 30 Days #60 tablet 10/14/18 [Rx] Naproxen [Naprosyn] 500 mg PO DAILY PRN 10/16/18 [History] Allergy/AdvReac Type Severity Reaction Status Date / Time No Known Allergies Allergy Verified 10/14/18 11:59 All Systems Reviewed: The remainder of the systems were reviewed and are negative - Constitutional Additional comments: per HPI - Cardiovascular Cardiovascular: no chest pain, no dyspnea - Respiratory Respiratory: no dyspnea Physical Exam - Constitutional Vitals: Temp Pulse Resp BP Pulse Ox 98.2 F 75 16 168/93 97 10/17/18 07:46 10/17/18 07:46 10/17/18 07:46 10/17/18 07:46 10/17/18 07:46 Exam: Constitutional: Alert and oriented x 3 male, no acute distress noted Vascular: PT/DP pulses bilaterally per Doppler, cap refill less than 3 seconds, skin warm from tibia to toes, no pain with calf squeeze Neurological: Absent plantar reflex left, normal plantar reflex right Dermatological: Left foot 2nd digit with gangrene noted, the digit is edematous, erythema noted to forefoot, no streaking, and dusky. Right foot 3rd toe with ulcer noted, edema, dry flaking skin, and erythema, no lymphangitis Musculoskeletal: 4/5 muscle strength Results - Labs Result Diagrams: 10/17/18 05:16 10/17/18 05:16 Labs: Abnormal lab results WBC 14.8 K/mcL (4.3-11.1) H 10/16/18 15:16 RBC 3.79 M/mcL (4.19-5.50) L 10/17/18 05:16 Hgb 11.7 g/dL (12.9-16.9) L D 10/17/18 05:16 Hct 32.7 % (37.5-50.1) L 10/17/18 05:16 MCHC 35.8 g/dL (31.6-35.5) H 10/17/18 05:16 Neutrophils # 12.6 K/mcL (1.6-8.9) H 10/16/18 15:16 Glucose 233 mg/dL (70-105) H 10/17/18 05:16 POC Glucose 220 mg/dL (70-99) H 10/17/18 07:44 Calcium 8.4 mg/dL (8.6-10.3) L 10/17/18 05:16 Total Bilirubin 1.3 mg/dL (0.3-1.0) H 10/16/18 15:16 Direct Bilirubin 0.3 mg/dL (0.0-0.2) H 10/16/18 15:16 H & H 10/16/18 10/17/18 Range/Units 15:16 05:16 Hgb 13.4 11.7 L D (12.9-16.9) g/dL Hct 37.6 32.7 L (37.5-50.1) % All other labs normal. - Diagnostic results Ankle/Foot x-ray: report reviewed, other Consult Discharge Plan - Plan Referrals: NONE,PCP [Primary Care Provider] -
--- NOTE | 2018-10-17 11:01 | Electrocardiograph Report ---
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
[2018-10-17 12:09] LABS: C-Reactive Protein 122 mg/L (Less than 10)
[2018-10-17] MEDS: hydroCHLOROthiazide 25 MG TABLET PO SCH (14:30)
[2018-10-18 03:25] LABS: Basophils # 0.1 K/mcL (0.0-0.2); Basophils % 0.5 %; Eosinophils # 0.2 K/mcL (0.0-0.6); Eosinophils % 1.6 %; Hematocrit 35.6 % (37.5-50.1); Hemoglobin 12.6 g/dL (12.9-16.9); Immature Granulocytes % 0.7 % (0-4); Lymphocytes # 1.7 K/mcL (0.6-4.6); Lymphocytes % 13.9 %; Mean Corpuscular HGB Conc 35.4 g/dL (31.6-35.5); Mean Corpuscular Volume 84.8 fL (83.0-100.0); Monocytes # 1.2 K/mcL (0.0-1.3); Monocytes % 9.6 %; Platelet Count 303 K/mcL (140-400); Red Cell Distribution Width 12.4 % (11.5-14.5); Segmented Neutrophils % 73.7 %; White Blood Count 12.2 K/mcL (4.3-11.1)
[2018-10-18 03:36] LABS: BUN/Creatinine Ratio 15 (6-26); Blood Urea Nitrogen 11 mg/dL (8-23); Calcium 8.4 mg/dL (8.6-10.3); Carbon Dioxide 25 mEq/L (23-29); Chloride 102 mEq/L (98-107); Glucose 180 mg/dL (70-105); Osmolality,Calculated 284 (280-300); Sodium 135 mEq/L (136-145); eGFR For African Americans > 60 (> 60); eGFR For Non-African Americans > 60 (> 60)
[2018-10-18] MEDS: Cefepime HCl 2,000 MG in Water for inj. (sterile) 20 ML IVP SCH ×2 (04:43→16:38)
--- NOTE | 2018-10-18 07:39 | Internal Med Progress Note ---
<Carlton Moreira - Last Filed: 10/18/18 09:12> Hospitalist Progress Note - Encounter Date of Encounter: 10/18/18 Time of Encounter: 07:39 - Subjective Interval History: Patient is awake, in bed, comfortable. No acute complaints today. Continues to endorse mild-moderate pain of toes. We discussed plan today including surgery and timeline of discharge. We spoke about PCP follow-up and pt states that he will follow up with a recommended physician in [place]. - Exam Vitals: Temp Pulse Resp BP Pulse Ox 97.9 F 77 16 181/82 97 10/18/18 07:31 10/18/18 07:31 10/18/18 07:31 10/18/18 07:31 10/18/18 07:31 Exam: Gen: NAD, alert and oriented 3 Eyes: PERRL, normal conjunctiva CV: RRR, S1/S2 WNL, no murmurs, rubs, gallops Lungs: CTA bilaterally, no wheezes, rales, rhonchi GI: Abdomen soft and nontender, normoactive BS Ext: No significant edema, sensation intact Skin: Skin warm and dry without defects except as noted below Left second toe is edematous and cyanotic with black eschar present. Drainage appears to be improving. Toes are mildly tender to palpation. - Assessment and Plan (1) Osteomyelitis Current Visit: Yes Status: Suspected Assessment and Plan: No acute changes overnight. Patient continues to report some mild pain of right and left toes. Podiatry consulted, recommended surgery, scheduled for today. WBC up slightly from 10.0 to 12.2 although down from 14.8 at admission. He remains afebrile. - XR showed signs concerning for osteomyelitis. - Continue IV cefepime, vancomycin. - Awaiting blood cultures. (2) EKG abnormality Current Visit: No Status: Chronic Assessment and Plan: Patient is comfortable, in no acute distress. Denies chest pain, sob. His EKG on admission revealed nonspecific ST changes in the lateral leads suspicious for remote infarct. RCRI performed and patient is class I, 3.9% risk of surgical complication. - Echo ordered per podiatry for surgical clearance. Awaiting report. - Patient stable at this time. Continue to monitor HTN. (3) Foot ulcer Current Visit: Yes Status: Acute Assessment and Plan: Pt with left second, right third toe ulcers with necrosis, drainage, and edema. Pain is well controlled. Sensation intact. Pt denies any acute changes overnight. - Continue IV cefepime, vancomycin. - Awaiting blood cultures. (4) Diabetes Current Visit: Yes Status: Chronic Assessment and Plan: NPO since midnight. BS down from 233 to 180. - Continue Accu-Cheks, low-dose sliding scale insulin protocol. - Monitor for hypoglycemia. DVT Prophylaxis: pneumatic compression - Time Spent with Patient Total time spent is greater than 50% in coordination of care (as documented) at patient's floor/unit and/or counseling patient: Plan of Care Discussed with: patient Internal Medicine: Result - Labs CBC & Chem 7: 10/18/18 03:07 10/18/18 03:07 Labs: Short CBC 10/18/18 Range/Units 03:07 WBC 12.2 H (4.3-11.1) K/mcL Hgb 12.6 L (12.9-16.9) g/dL Hct 35.6 L (37.5-50.1) % Plt Count 303 (140-400) K/mcL Neutrophils # 9.0 H (1.6-8.9) K/mcL BMP 10/17/18 10/18/18 05:16 03:07 Sodium 139 135 L Potassium 4.3 4.0 Chloride 106 102 Carbon Dioxide 24 25 BUN 14 11 Creatinine 0.73 0.72 Glucose 233 H 180 H Calcium 8.4 L 8.4 L Consult Discharge Plan - Plan Referrals: NONE,PCP [Primary Care Provider] - <Vani Givens - Last Filed: 10/18/18 13:37> Hospitalist Progress Note - Encounter Date of Encounter: 10/18/18 - Exam Vitals: Temp Pulse Resp BP Pulse Ox 98.4 F 77 16 138/82 99 10/18/18 11:28 10/18/18 11:28 10/18/18 11:28 10/18/18 11:28 10/18/18 11:28 - Assessment and Plan (1) Osteomyelitis Current Visit: Yes Status: Suspected (2) Diabetes Current Visit: Yes Status: Chronic (3) Tobacco abuse Current Visit: Yes Status: Chronic - Time Spent with Patient Total time spent is greater than 50% in coordination of care (as documented) at patient's floor/unit and/or counseling patient: Internal Medicine: Result - Labs CBC & Chem 7: 10/18/18 03:07 10/18/18 03:07 Labs: Short CBC 10/18/18 Range/Units 03:07 WBC 12.2 H (4.3-11.1) K/mcL Hgb 12.6 L (12.9-16.9) g/dL Hct 35.6 L (37.5-50.1) % Plt Count 303 (140-400) K/mcL Neutrophils # 9.0 H (1.6-8.9) K/mcL BMP 10/18/18 03:07 Sodium 135 L Potassium 4.0 Chloride 102 Carbon Dioxide 25 BUN 11 Creatinine 0.72 Glucose 180 H Calcium 8.4 L - Impressions Impressions Echocardiogram Limited Views 10/17/18 10:22 Impressions: LVEF 55%. Normal LV chamber size, wall thickness and overall function. Mild segmental left ventricular systolic dysfunction. Atypical septal motion consistent with bundle branch block. Left Ventricular Wall Motion: Rest Echo Findings The apical septal, mid inferior septal and mid anterior septal orr were hypokinetic. All other wall segments showed normal motion. Findings: Study Quality * Technically adequate exam. ECG Findings * Sinus rhythm with a possible BBB. Left Ventricle * LVEF 55%. * Normal LV chamber size, wall thickness and overall function. * Mild segmental left ventricular systolic dysfunction. * Atypical septal motion consistent with bundle branch block. Right Ventricle * Normal right ventricular structure and function. Aorta * Normally sized aortic root. Pericardium * The pericardium appears normal. - Attending Attestation I examined this patient and my medical decision-making was reviewed with the Resident Physician on Dr Moreira. I agree with the documented findings, disposition and treatment plan as described except to the extent set forth below. Mr Peña is 68 y/o male with DM admitted for osteomyleitis requiring surgical intervention awake, pain controlled, awaiting OR, no fevers or chills gen- alert, awake,appears stated age cv- reg rate and rhythm, normal s1,s2 lungs- ctabl, normal resp effort on room air skin- dressing bl feet c/d/i neuro- AAOx3 1. Cellulitis and possible OM both feet -cont IV abx, to OR with Podiatry today 2. Consistently elevated bps in the absence of pain- medication initation, prn IV hydralazine, will require outpt fu 3. Pre Op risk assessment- RCRI score zero, lowest risk for post operative 30 d cardiac complications- ekg reviewed, he has no sxs at home, echo unremarkable, no further work up required prior to OR Further diagnoses and plan as noted by resident <Carlton Moreira M - Last Filed: 10/18/18 09:12> (1) Osteomyelitis Qualifiers: Osteomyelitis type: unspecified type Osteomyelitis location: foot Lateral ity: unspecified laterality Qualified Code(s): M86.9 - Osteomyelitis, unspecified (3) Foot ulcer Qualifiers: Laterality: unspecified laterality Non-pressure ulcer stage: unspecified non- pressure ulcer stage Qualified Code(s): L97.509 - Non-pressure chronic ulcer of other part of unspecified foot with unspecified severity (4) Diabetes Qualifiers: Diabetes mellitus type: type 2 Diabetes mellitus joint terminal attack controller insulin use: [facility] intermediate use Diabetes mellitus complication status: with skin compl ications Diabetes mellitus complication detail: with foot ulcer Qualified Code(s): E11.621 - Type 2 diabetes mellitus with foot ulcer; L97.509 - Non- pressure chronic ulcer of other part of unspecified foot with unspecified severity <Vani Givens M - Last Filed: 10/18/18 13:37> (1) Osteomyelitis Qualifiers: Osteomyelitis type: unspecified type Osteomyelitis location: foot Laterality: unspecified laterality Qualified Code(s): M86.9 - Osteomyelitis, unspecified (2) Diabetes Qualifiers: Diabetes mellitus type: type 2 Diabetes mellitus joint terminal attack controller insulin use: without joint terminal attack controller use Diabetes mellitus complication status: with skin complications Diabetes mellitus complication detail: with foot ulcer Qualified Code(s): E11.621 - Type 2 diabetes mellitus with foot ulcer; L97.509 - Non- pressure chronic ulcer of other part of unspecified foot with unspecified severity
[2018-10-18 08:37] LABS: Estimated Average Glucose 203 mg/dl
[2018-10-18] MEDS: Insulin LISPRO 300 UNITS/3 ML VIAL SQ SCH ×3 (09:25→16:38)
[2018-10-18] MEDS: hydroCHLOROthiazide 25 MG TABLET PO SCH (09:26)
[2018-10-18] MEDS ORDERED: Ropivicaine 0.25% 20 ml Syringe INTRAART ONE ×2 (13:00)
[2018-10-18] MEDS ORDERED: Dexamethasone 4 MG/ML VIAL ONE (13:34)
[2018-10-18] MEDS ORDERED: *HR* FentaNYL (PF) 100 MCG/2 ML VIAL ONE ×2 (13:34→14:53)
[2018-10-18] MEDS ORDERED: *HR* Midazolam HCl 2 MG/2 ML VIAL ONE (13:34)
[2018-10-18] MEDS ORDERED: Lidocaine -MPF 2% 2 ML VIAL ONE (13:34)
[2018-10-18] MEDS ORDERED: Ondansetron 4 MG/2 ML VIAL ONE (13:34)
[2018-10-18] MEDS ORDERED: *HR* Propofol 200 MG/20 ML VIAL IVP ONE ×2 (13:34→15:23)
--- NOTE | 2018-10-18 14:05 | Anesthesia Evaluation PreOp ---
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 HbA1c = 8.9) Anesthesia History: No Prior Anesthetic Complications, Past Anesthesia (T&A), (NO FamHx of ) Alcohol Use: occasionally Drug use: none Medications and Allergies metFORMIN [Glucophage] 500 mg PO BIDWM 30 Days #60 tablet 10/14/18 [Rx] Naproxen [Naprosyn] 500 mg PO DAILY PRN 10/16/18 [History] Allergy/AdvReac Type Severity Reaction Status Date / Time No Known Allergies Allergy Verified 10/14/18 11:59 - Meds/Allergy Pre-op Review Medications Reviewed: Yes Allergies Reviewed: Yes Beta Blockers on Current Med List: No Anesthesia Results - Labs 10/18/18 03:07 10/18/18 03:07 Laboratory Tests 10/18/18 10/18/18 10/18/18 03:07 03:07 11:28 POC Glucose 209 H Est Mean Plasma Glucose 203 Hemoglobin A1c 8.7 H Calcium 8.4 L Impressions Foot X-Ray 10/16/18 15:10 IMPRESSION: 1. No acute cardiopulmonary disease. 2. Stable mild lucency involving the distal phalanx of the right 3rd toe, possibly presenting acute osteomyelitis. Suggest clinical correlation and consider further characterization with a follow-up right foot MRI. There remain multiple punctate radiodensities within the soft tissues of the right 3rd toe, possibly retained foreign bodies. 3. No radiographic evidence of osteomyelitis involving the left foot. There does remain a stable unchanged age-indeterminate fracture of the 2nd middle phalanx of the left foot. D/ 10/16/2018 16:12:07 [facility] Inter[facility] Provider: Kelby Grajeda MD Chest X-Ray 10/16/18 15:13 IMPRESSION: 1. No acute cardiopulmonary disease. 2. Stable mild lucency involving the distal phalanx of the right 3rd toe, possibly presenting acute osteomyelitis. Suggest clinical correlation and consider further characterization with a follow-up right foot MRI. There remain multiple punctate radiodensities within the soft tissues of the right 3rd toe, possibly retained foreign bodies. 3. No radiographic evidence of osteomyelitis involving the left foot. There does remain a stable unchanged age-indeterminate fracture of the 2nd middle phalanx of the left foot. D/ / 10/16/2018 16:12:07 [facility] Provider: Kelby Grajeda MD Echocardiogram Limited Views 10/17/18 10:22 Impressions: LVEF 55%. Normal LV chamber size, wall thickness and overall function. Mild segmental left ventricular systolic dysfunction. Atypical septal motion consistent with bundle branch block. Left Ventricular Wall Motion: Rest Echo Findings The apical septal, mid inferior septal and mid anterior septal orr were hypokinetic. All other wall segments showed normal motion. Findings: Study Quality * Technically adequate exam. ECG Findings * Sinus rhythm with a possible BBB. Left Ventricle * LVEF 55%. * Normal LV chamber size, wall thickness and overall function. * Mild segmental left ventricular systolic dysfunction. * Atypical septal motion consistent with bundle branch block. Right Ventricle * Normal right ventricular structure and function. Aorta * Normally sized aortic root. Pericardium * The pericardium appears normal. Laboratory Results - Imaging EKG: report reviewed (88bpm - Sinus rhythm Anterior infarct, old Electronically Signed On 10-17-2018 11:00:01 EDT by Sawyer Foley) Anesthesia Exam Vital Signs Temp Pulse Resp BP Pulse Ox 10/18/18 11:28 98.4 F 77 16 138/82 99 10/18/18 07:31 97.9 F 77 16 181/82 97 10/18/18 03:14 98.1 F 75 14 167/89 96 10/18/18 00:28 73 171/90 10/17/18 23:45 76 180/93 10/17/18 22:57 98.3 F 80 14 177/94 97 10/17/18 21:44 73 200/120 10/17/18 18:39 98.1 F 80 16 181/80 100 10/17/18 15:18 98.4 F 73 15 174/89 99 Intake and Output 10/17/18 10/18/18 10/18/18 23:59 07:59 15:59 Intake Total 490 / 1020 270 / 270 Balance 490 / 1020 270 / 270 Intake: IV Fluids 250 / 540 270 / 270 Maxipime 2,000 MG In Water for 20 / 20 inj. (sterile) 20 ML @ 300 mls/ hr IVP Q12H [facility] Rx#:[id number] Vancocin 1,500 MG In 0.9 % 250 / 500 250 / 250 Sodium Chloride 250 ML @ 166. 667 mls/hr IVPB Q12H [facility] Rx#: [id number] Oral 240 / 480 Other: Meal Dinner npo Percent of Meal Consumed 100% 0% # Voids 2 Blood Glucose* 192 210 209 Height: 5'10" Weight: 191# BMI = 28 NPO (# of Hours): MNoc - HEENT Pupil (Motor): Pupils equal, EOMI Mallampati: III Teeth: Missing, Poor dentition (Mostly blackened tooth remnants/broken at gu mline. 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 Cristobal Luna MD
--- NOTE | 2018-10-18 15:42 | Orthopedic Operative Note ---
Date of procedure: 10/18/18 Pre-op diagnosis: #1: Ischemic /Gangrene toes #2 left foot #3 right foot Post-op diagnosis: same Procedure: 10/18/18 15:37 #1: Amputation of toe #2 left foot at the metatarsophalangeal joint #2: Amputation third toe right foot at the metatarsophalangeal joint #3 inject PRP left foot right foot Implants: None Complications: None Anesthesia: MAC, local Local Anesthetics: Other (Ropivacaine plain) Surgeon: Sai Calle Was there an administrative assistant receptionist present: No Estimated blood loss (cc): 5 Tourniquet Time (Minutes): 0 Specimen: Toe #2 left foot toe #3 right foot cultures aerobe and anaerobe bilateral Condition: stable Disposition: floor Procedure in Detail: 10/18/18 15:38 Details summary of procedure: Patient was brought to surgical suite. Sign in procedure was performed. Patient was transferred the surgical table and positioned properly safely securely. Both feet elevated on a foam block. No tourniquet was used. Anesthetic timeout was taken. Both feet were then prepped with alcohol 3 times modified ankle block was carried out with ropivacaine plain. No complications. Both feet were then prepped and draped usual sterile manner. Surgical timeout was taken. Attention was turned the left foot wound we appreciate fully ischemic necrotic toe #2. That juncture the incision was begun the sulcus the plantar aspect of toe #2 and brought distally to the base the toe and a circumferentially around- like incision medial dorsal aspect of the base of the second toe and then continuous low midline of the second metatarsophalangeal joint. Incisions were carried down to bone. Periosteum was then elevated medially and laterally. Capsulotomy was then performed toe was then disarticulated. Wound was then flushed with copious must sterile saline. Cultures were taken. Fortunately the head of the second metatarsophalangeal joint was of normal color texture density. No evidence of any further necrosis. Remainder the suspicious tissue nonviable tissue was then debrided accordingly with a pickup and curved tenotomy scissor. Satisfied we a clean wound wound edges were noted bleed adequately without necessitating use of Bovie ligature. The wound was then closed loosely with 3-0 Prolene. He was sprayed with PRP and injected with PRP prior to closure and post closure. Attention was then turned to the third toe with right foot the same exact procedure was performed without any additions or deletions. We noticed more robust bleedings the right foot the medial to the left. Judicious use of a Bovie was used to maintain hemostasis. No complications. Dressings consisted of sterile Adaptic 4 x 4's and Kerlix. Capillary rebound time remained less than 3 seconds after application of dressing patient was sent to holding room in good condition with vital signs stable. Estimated blood loss less than 5 mL complications none. Case class IV.
[2018-10-18] MEDS ORDERED: D5% in Water 1,000 ML IVC PRN (15:52)
[2018-10-18] MEDS ORDERED: Acetaminophen 325 MG TABLET PO PRN (15:52)
[2018-10-18] MEDS ORDERED: *HR* Dextrose 50 % in Water (Syg) 50 ML SYRINGE IVP PRN (15:52)
[2018-10-18] MEDS ORDERED: Naloxone 0.4 MG/ML INJ IVP PRN (15:52)
[2018-10-18] MEDS ORDERED: Dextrose Gel 15 GM/37.5 ML TUBE PO PRN ×2 (15:52)
[2018-10-18] MEDS ORDERED: traMADol 50 MG TABLET PO PRN (15:52)
[2018-10-19 04:26] LABS: Basophils % 0.2 %; Eosinophils % 0.1 %; Hematocrit 35.6 % (37.5-50.1); Hemoglobin 12.7 g/dL (12.9-16.9); Immature Granulocytes % 0.6 % (0-4); Lymphocytes # 1.4 K/mcL (0.6-4.6); Lymphocytes % 9.7 %; Mean Corpuscular HGB Conc 35.7 g/dL (31.6-35.5); Mean Corpuscular Hemoglobin 30.3 pg (28.0-33.3); Mean Platelet Volume 10.2 fL (9.4-12.4); Monocytes # 1.1 K/mcL (0.0-1.3); Monocytes % 7.6 %; Neutrophils # 11.7 K/mcL (1.6-8.9); Platelet Count 360 K/mcL (140-400); Red Blood Count 4.19 M/mcL (4.19-5.50); Red Cell Distribution Width 12.5 % (11.5-14.5); Segmented Neutrophils % 81.8 %; White Blood Count 14.3 K/mcL (4.3-11.1)
[2018-10-19 04:45] LABS: BUN/Creatinine Ratio 21 (6-26); Blood Urea Nitrogen 16 mg/dL (8-23); Calcium 8.4 mg/dL (8.6-10.3); Carbon Dioxide 23 mEq/L (23-29); Chloride 102 mEq/L (98-107); Glucose 211 mg/dL (70-105); Osmolality,Calculated 287 (280-300); Sodium 135 mEq/L (136-145); eGFR For African Americans > 60 (> 60); eGFR For Non-African Americans > 60 (> 60)
[2018-10-19 04:58] LABS: Estimated Average Glucose 229 mg/dl
[2018-10-19] MEDS: Cefepime HCl 2,000 MG in Water for inj. (sterile) 20 ML IVP SCH ×2 (05:39→17:23)
[2018-10-19] MEDS: Insulin LISPRO 300 UNITS/3 ML VIAL SQ SCH ×3 (08:11→15:58)
--- NOTE | 2018-10-19 08:22 | Internal Med Progress Note ---
<ChonVani M - Last Filed: 10/19/18 12:22> Hospitalist Progress Note - Encounter Date of Encounter: 10/19/18 - Exam Vitals: Temp Pulse Resp BP Pulse Ox 98.1 F 80 15 131/75 97 10/19/18 11:38 10/19/18 11:38 10/19/18 11:38 10/19/18 11:38 10/19/18 11:38 - Assessment and Plan (1) Osteomyelitis Current Visit: Yes Status: Suspected (2) Diabetes Current Visit: Yes Status: Chronic (3) Tobacco abuse Current Visit: Yes Status: Chronic - Time Spent with Patient Total time spent is greater than 50% in coordination of care (as documented) at patient's floor/unit and/or counseling patient: Internal Medicine: Result - Labs CBC & Chem 7: 10/19/18 03:51 10/19/18 03:51 Labs: Short CBC 10/19/18 Range/Units 03:51 WBC 14.3 H (4.3-11.1) K/mcL Hgb 12.7 L (12.9-16.9) g/dL Hct 35.6 L (37.5-50.1) % Plt Count 360 (140-400) K/mcL Neutrophils # 11.7 H (1.6-8.9) K/mcL BMP 10/19/18 03:51 Sodium 135 L Potassium 4.0 Chloride 102 Carbon Dioxide 23 BUN 16 Creatinine 0.76 Glucose 211 H Calcium 8.4 L - Impressions Impressions Foot X-Ray 10/16/18 15:10 IMPRESSION: 1. No acute cardiopulmonary disease. 2. Stable mild lucency involving the distal phalanx of the right third toe, possibly representing acute osteomyelitis. Suggest clinical correlation and consider further characterization with a follow-up right foot MRI. There remain multiple punctate radiodensities within the soft tissues of the right third toe, possibly retained foreign bodies. 3. No radiographic evidence of osteomyelitis involving the left foot. There does remain a stable unchanged age-indeterminate fracture of the second middle phalanx of the left foot. D/ / 10/16/2018 16:12:07 Kelby Grajeda MD / [facility] Interpreting Provider: Kelby Grajeda MD Foot X-Ray 10/16/18 15:10 IMPRESSION: 1. No acute cardiopulmonary disease. 2. Stable mild lucency involving the distal phalanx of the right third toe, possibly representing acute osteomyelitis. Suggest clinical correlation and consider further characterization with a follow-up right foot MRI. There remain multiple punctate radiodensities within the soft tissues of the right third toe, possibly retained foreign bodies. 3. No radiographic evidence of osteomyelitis involving the left foot. There does remain a stable unchanged age-indeterminate fracture of the second middle phalanx of the left foot. D/ / 10/16/2018 16:12:07 Kelby Grajeda MD / [facility] Interpreting Provider: Kelby Grajeda MD Chest X-Ray 10/16/18 15:13 IMPRESSION: 1. No acute cardiopulmonary disease. 2. Stable mild lucency involving the distal phalanx of the right third toe, possibly representing acute osteomyelitis. Suggest clinical correlation and consider further characterization with a follow-up right foot MRI. There remain multiple punctate radiodensities within the soft tissues of the right third toe, possibly retained foreign bodies. 3. No radiographic evidence of osteomyelitis involving the left foot. There does remain a stable unchanged age-indeterminate fracture of the second middle phalanx of the left foot. D/ / 10/16/2018 16:12:07 Kelby Grajeda MD / [facility] Interpreting Provider: Kelby Grajeda MD Consult Discharge Plan - Plan Referrals: NONE,PCP [Primary Care Provider] - - Attending Attestation I examined this patient and my medical decision-making was reviewed with the Resident Physician on Dr Moreira. I agree with the documented findings, disposition and treatment plan as described except to the extent set forth below. Mr Peña is 68 y/o male with DM admitted for osteomyleitis requiring surgical intervention awake, mild pain overnight, tolerable, no fevers or chills, urinating/eating/drinking/+ flatus post op gen- alert, awake,appears stated age cv- reg rate and rhythm, normal s1,s2 lungs- ctabl, normal resp effort on room air abd- soft, nt, nd, + bs skin- dressing bl feet c/d/i neuro- AAOx3 1. Cellulitis and possible OM s/p Left 2nd toe and Right 3rd toe amputation 10/18/18 possible osteo was on XR without other imaging obtained on admit/ pre op -cont IV Vanc,follow intra op cxs 2. HTN- cont current regiemn, fu with pcp Further diagnoses and plan as noted by resident <Carlton Moreira M - Last Filed: 10/19/18 13:33> Hospitalist Progress Note - Encounter Date of Encounter: 10/19/18 Time of Encounter: 08:21 - Subjective Interval History: Patient is laying in bed, alert, comfortable. He is s/p amputation of the left #2 and right #3 toe. Reports some mild-moderate pain of the ball of the foot on the left that has been present for one week since "wearing down shoe." He states that He feels well, denies fevers, chills, n/v. - Exam Vitals: Temp Pulse Resp BP Pulse Ox 98.0 F 77 15 155/73 96 10/19/18 06:44 10/19/18 06:44 10/19/18 06:44 10/19/18 06:44 10/19/18 06:44 Exam: Gen: NAD, alert and oriented 3 Eyes: No scleral icterus, normal conjunctiva CV: RRR, S1/S2 WNL, no murmurs, rubs, gallops Lungs: CTA bilaterally, no wheezes, rales, rhonchi GI: Abdomen soft and nontender, normoactive BS Ext: No significant edema, sensation intact Skin: Dry, no rashes. Dressings dry, intact. - Assessment and Plan (1) Osteomyelitis Current Visit: Yes Status: Suspected Assessment and Plan: S/P left #2, right #3 toe amputations. No acute changes overnight. He has very mild pain of the left foot. Surgical wounds intact without bleeding, drainage. WBC up from 12.2 to 14.3, in the absence of fevers this is likely reactive in etiology. He remains afebrile. - Wound cultures pending for antibiotic recs per podiatry. - Continue IV cefepime, vancomycin. - Awaiting blood cultures. - Limited wt bearing, post-op shoe bilaterally, no dressing changes unless saturated per podiatry. (2) EKG abnormality Current Visit: No Status: Chronic Assessment and Plan: Patient comfortable, in no acute distress. Continues to deny cp and dyspnea. Afebrile. His EKG on admission revealed nonspecific ST changes in the lateral leads suspicious for remote infarct. - Echo revealed LVEF of 55% w/mild segmental LV systolic dysfunction and BBB. - Continue to monitor. Tight BP control. (3) HTN (hypertension) Current Visit: Yes Status: Chronic Assessment and Plan: Patient with history of HTN not managed medically. He has not been to a PCP in many years. BP ranges 154-122/66-74. Patient was started on Lisinopril 10 mg and Hydralazine 10 mg IV Q8H PRN if SBP >160. He has tolerated meds well without side effects. BUN and Cr 16 and 0.76 respectively. Due to history of uncontrolled DM, lisinopril will be continued for renal protection. - Hydralazine has been held since yesterday. Patient has responded well to lisinopril with recent BP of 131/75 following midnight dose. - We will d/c hydralazine at this time. - Increase Lisinopril to 20 mg PO daily. - Monitor for hyperkalemia. - Continue to monitor vitals. (4) Foot ulcer Current Visit: Yes Status: Resolved Assessment and Plan: S/P amputation left second, right third toe. Pt denies any acute changes overnight. - Continue IV cefepime, vancomycin. - Awaiting wound culture results, plan to tailor abx. - Awaiting blood cultures. (5) Diabetes Current Visit: Yes Status: Chronic Assessment and Plan: NPO since midnight. BS up from 180 to 211. - Continue Accu-Cheks, low-dose sliding scale insulin protocol. - Monitor for hypoglycemia. - Tight glycemic control. - Diabetic diet. - Time Spent with Patient Total time spent is greater than 50% in coordination of care (as documented) at patient's floor/unit and/or counseling patient: Plan of Care Discussed with: patient Internal Medicine: Result - Labs CBC & Chem 7: 10/19/18 03:51 10/19/18 03:51 Labs: Short CBC 10/19/18 Range/Units 03:51 WBC 14.3 H (4.3-11.1) K/mcL Hgb 12.7 L (12.9-16.9) g/dL Hct 35.6 L (37.5-50.1) % Plt Count 360 (140-400) K/mcL Neutrophils # 11.7 H (1.6-8.9) K/mcL BMP 10/19/18 03:51 Sodium 135 L Potassium 4.0 Chloride 102 Carbon Dioxide 23 BUN 16 Creatinine 0.76 Glucose 211 H Calcium 8.4 L - Impressions Impressions Foot X-Ray 10/16/18 15:10 IMPRESSION: 1. No acute cardiopulmonary disease. 2. Stable mild lucency involving the distal phalanx of the right third toe, possibly representing acute osteomyelitis. Suggest clinical correlation and consider further characterization with a follow-up right foot MRI. There remain multiple punctate radiodensities within the soft tissues of the right third toe, possibly retained foreign bodies. 3. No radiographic evidence of osteomyelitis involving the left foot. There does remain a stable unchanged age-indeterminate fracture of the second middle phalanx of the left foot. D/ /16/2018 16:12:07 Kelby Grajeda MD / [facility] Interpreting Provider: Kelby Grajeda MD Foot X-Ray 10/16/18 15:10 IMPRESSION: 1. No acute cardiopulmonary disease. 2. Stable mild lucency involving the distal phalanx of the right third toe, possibly representing acute osteomyelitis. Suggest clinical correlation and consider further characterization with a follow-up right foot MRI. There remain multiple punctate radiodensities within the soft tissues of the right third toe, possibly retained foreign bodies. 3. No radiographic evidence of osteomyelitis involving the left foot. There does remain a stable unchanged age-indeterminate fracture of the second middle phalanx of the left foot. D/ /16/2018 16:12:07 Kelby Grajeda MD / [facility] Interpreting Provider: Kelby Grajeda MD Chest X-Ray 10/16/18 15:13 IMPRESSION: 1. No acute cardiopulmonary disease. 2. Stable mild lucency involving the distal phalanx of the right third toe, possibly representing acute osteomyelitis. Suggest clinical correlation and consider further characterization with a follow-up right foot MRI. There remain multiple punctate radiodensities within the soft tissues of the right third toe, possibly retained foreign bodies. 3. No radiographic evidence of osteomyelitis involving the left foot. There does remain a stable unchanged age-indeterminate fracture of the second middle phalanx of the left foot. D/ / 10/16/2018 16:12:07 Kelby Grajeda MD / [facility] Interpreting Provider: Kelby rGajeda MD Echocardiogram Limited Views 10/17/18 10:22 Impressions: LVEF 55%. Normal LV chamber size, wall thickness and overall function. Mild segmental left ventricular systolic dysfunction. Atypical septal motion consistent with bundle branch block. Left Ventricular Wall Motion: Rest Echo Findings The apical septal, mid inferior septal and mid anterior septal orr were hypokinetic. All other wall segments showed normal motion. Findings: Study Quality * Technically adequate exam. ECG Findings * Sinus rhythm with a possible BBB. Left Ventricle * LVEF 55%. * Normal LV chamber size, wall thickness and overall function. * Mild segmental left ventricular systolic dysfunction. * Atypical septal motion consistent with bundle branch block. Right Ventricle * Normal right ventricular structure and function. Aorta * Normally sized aortic root. Pericardium * The pericardium appears normal. <Vani Givens M - Last Filed: 10/19/18 12:22> (1) Osteomyelitis Qualifiers: Osteomyelitis type: unspecified type Osteomyelitis location: foot Laterality: unspecified laterality Qualified Code(s): M86.9 - Osteomyelitis, unspecified (2) Diabetes Qualifiers: Diabetes mellitus type: type 2 Diabetes mellitus fdc insulin use: witho ut fdc use Diabetes mellitus complication status: with skin complications Diabetes mellitus complication detail: with foot ulcer Qualified Code(s): E11.621 - Type 2 diabetes mellitus with foot ulcer; L97.509 - Non-pressure chronic ulcer of other part of unspecified foot with unspecified severity <Carlton Moreira M - Last Filed: 10/19/18 13:33> (1) Osteomyelitis Qualifiers: Osteomyelitis type: unspecified type Osteomyelitis location: foot Laterality: unspecified laterality Qualified Code(s): M86.9 - Osteomyelitis, unspecified (3) HTN (hypertension) Qualifiers: Hypertension type: essential hypertension Qualified Code(s): I10 - Essential (primary) hypertension (4) Foot ulcer Qualifiers: Laterality: unspecified laterality Non-pressure ulcer stage: unspecified non- pressure ulcer stage Qualified Code(s): L97.509 - Non-pressure chronic ulcer of other part of unspecified foot with unspecified severity (5) Diabetes Qualifiers: Diabetes mellitus type: type 2 Diabetes mellitus fdc insulin use: without director long term care use Diabetes mellitus complication status: with skin complications Diabetes mellitus complication detail: with foot ulcer Qualified Code(s): E11.621 - Type 2 diabetes mellitus with foot ulcer; L97.509 - Non- pressure chronic ulcer of other part of unspecified foot with unspecified severity
--- NOTE | 2018-10-19 09:48 | Podiatry Progress Note ---
Date of Encounter: 10/19/18 Time of Encounter: 08:35 - Assessment and Plan (1) Osteomyelitis Current Visit: Yes Status: Suspected Assessment: -Surgical wounds left 2nd toe amputation and right 3rd toe amputation without evidence of infection, no ischemia, and no bleeding or drainage noted -PT/DP pulses per Doppler -Cap refill less than 3 seconds -Skin warm from tibia to toes -WBC 14.3, afebrile -ESR 40, CRP 122 -Blood culture preliminary -Surgical wound cultures preliminary -Path pending -TCP O2 showed bilateral foot and ankle levels are consistent with healing -X ray of left and right foot Stable mild lucency involving the distal phalanx of the right 3rd toe, possibly presenting acute osteomyelitis. There remain multiple punctate radiodensities within the soft tissues of the right 3rd toe, possibly retained foreign bodies. 3. No radiographic evidence of osteomyelitis involving the left foot. There does remain a stable unchanged age-indeterminate fracture of the 2nd middle phalanx of the left foot. Plan: -Pending wound cultures to determine final antibiotic recommendations, currently on IV Vancomycin -Limited weight bearing, post op shoe bilaterally for weight bearing and weight on heels -Follow up with Dr. Calle in office, please schedule appointment prior to discharge -Do not change dressing unless it becomes saturated, reinforce if needed -Dressing changes Bilateral surgical wound flushed with sterile .9 NS and pat dry. Painted left surgical site with betadine. Adaptic placed over left 2nd and right 3rd toe amputations and covered with 4x4's and Kerlix. Secured with medipore tape and stockinette. Patient tolerated well. Qualifiers: Osteomyelitis type: unspecified type Osteomyelitis location: foot Laterality: unspecified laterality Qualified Code(s): M86.9 - Osteomyelitis, unspecified (2) Diabetes Current Visit: Yes Status: Chronic Assessment: -Blood glucose 211 -A1c 8.6 on 10/14/2018 Plan: -Tight glycemic control to promote healing and prevent further complications, managed by internal medicine Qualifiers: Diabetes mellitus type: type 2 Diabetes mellitus penitentiary insulin use: without penitentiary use Diabetes mellitus complication status: with skin complications Diabetes mellitus complication detail: with foot ulcer Qualified Code(s): E11.621 - Type 2 diabetes mellitus with foot ulcer; L97.509 - Non-pressure chronic ulcer of other part of unspecified foot with unspecified severity Subjective Interval history: Post op day #1, #1: Amputation of toe #2 left foot at the metatarsophalangeal joint, #2: Amputation third toe right foot at the metatarsophalangeal joint, and #3 inject PRP left foot right foot Patient is alert and oriented times 3, no acute distress noted, sitting up in bed eating breakfast. He denies any chest pain, shortness of breath, or calf pain. Patient denies fever, chills, nausea, vomiting or diarrhea. Patient reports he is anxious to go home. Objective - Vital Signs Vital Signs: Vital Signs Temp Pulse Resp BP Pulse Ox 10/19/18 06:44 98.0 F 77 15 155/73 96 10/19/18 03:15 98.1 F 83 16 122/74 96 10/18/18 22:50 98.8 F 83 18 154/66 98 10/18/18 19:51 77 173/81 10/18/18 19:34 97.6 F 76 22 178/92 98 10/18/18 18:34 97.7 F 71 14 160/80 99 10/18/18 17:30 97.6 F 75 16 158/70 99 10/18/18 16:30 97.5 F L 67 14 98 10/18/18 16:07 97.6 F 67 15 157/81 97 10/18/18 11:28 98.4 F 77 16 138/82 99 Intake and Output 10/18/18 10/19/18 10/19/18 23:59 07:59 15:59 Intake Total 630 / 900 270 / 270 Output Total 650 / 655 300 / 300 Balance -20 / 245 -30 / -30 Intake: IV Fluids 270 / 540 270 / 270 Maxipime 2,000 MG In Water for inj. (sterile) 20 ML @ 300 mls/ hr IVP Q12HR [facility] Rx#:[id number] Vancocin 1,500 MG In 0.9 % 250 / 250 250 / 250 Sodium Chloride 250 ML @ 166. 667 mls/hr IVPB Q12H [facility] Rx#: [id number] Oral 360 / 360 Output: Urine 650 / 650 300 / 300 Other: Meal Dinner Percent of Meal Consumed 100% Blood Glucose* 297 173 - Exam Exam: Constitutional: Alert and oriented x 3 male, no acute distress noted Vascular: PT/DP pulses bilaterally per Doppler, cap refill less than 3 seconds, skin warm from tibia to toes, no pain with calf squeeze Neurological: Absent plantar reflex left, normal plantar reflex right Dermatological: Sutures intact to surgical wound left 2nd toe amputation and right 3rd toe amputation. Edges as coapting. No ischemia noted, no bleeding noted, no drainage noted. Minimal maceration of tissue noted to surgical site left. Musculoskeletal: 4/5 muscle strength - Lab Result Diagrams: 10/19/18 03:51 10/19/18 03:51 Labs: Abnormal lab results WBC 14.3 K/mcL (4.3-11.1) H 10/19/18 03:51 RBC 3.79 M/mcL (4.19-5.50) L 10/17/18 05:16 Hgb 12.7 g/dL (12.9-16.9) L 10/19/18 03:51 Hct 35.6 % (37.5-50.1) L 10/19/18 03:51 MCHC 35.7 g/dL (31.6-35.5) H 10/19/18 03:51 Neutrophils # 11.7 K/mcL (1.6-8.9) H 10/19/18 03:51 ESR 40 mm/hr (0-10) H 10/17/18 05:16 Sodium 135 mEq/L (136-145) L 10/19/18 03:51 Glucose 211 mg/dL (70-105) H 10/19/18 03:51 POC Glucose 297 mg/dL (70-99) H 10/18/18 19:58 Hemoglobin A1c 9.6 % (-5.6) H 10/19/18 03:51 Calcium 8.4 mg/dL (8.6-10.3) L 10/19/18 03:51 Total Bilirubin 1.3 mg/dL (0.3-1.0) H 10/16/18 15:16 Direct Bilirubin 0.3 mg/dL (0.0-0.2) H 10/16/18 15:16 C-Reactive Protein 122 mg/L (Less than 10) H 10/17/18 05:16 Microbiology, Last 48 Hours 10/18/18 14:53 Wound Culture - Preliminary Left Foot 10/18/18 14:53 Wound Culture - Preliminary Right Foot 10/16/18 15:16 Blood Culture - Preliminary Peripheral Venipuncture Culture is incubating and being continuously monitored for growth. Final report to follow. Consult Discharge Plan - Plan Referrals: NONE,PCP [Primary Care Provider] -
[2018-10-19] MEDS: *HR* Heparin 5,000 UNIT/ML VIAL SQ SCH (17:23)
[2018-10-19] MEDS: Insulin DETEMIR 100 UNIT/ML X5UNITS SQ SCH (21:09)
[2018-10-20] MEDS: Cefepime HCl 2,000 MG in Water for inj. (sterile) 20 ML IVP SCH ×2 (06:20→17:33)
[2018-10-20] MEDS: *HR* Heparin 5,000 UNIT/ML VIAL SQ SCH ×2 (06:20→17:32)
[2018-10-20 07:16] LABS: Basophils % 0.4 %; Eosinophils # 0.2 K/mcL (0.0-0.6); Eosinophils % 1.7 %; Hematocrit 34.3 % (37.5-50.1); Hemoglobin 12.1 g/dL (12.9-16.9); Immature Granulocytes % 0.5 % (0-4); Lymphocytes # 1.4 K/mcL (0.6-4.6); Lymphocytes % 14.2 %; Mean Corpuscular HGB Conc 35.3 g/dL (31.6-35.5); Mean Corpuscular Hemoglobin 30.4 pg (28.0-33.3); Mean Corpuscular Volume 86.2 fL (83.0-100.0); Mean Platelet Volume 10.1 fL (9.4-12.4); Monocytes % 9.6 %; Neutrophils # 7.4 K/mcL (1.6-8.9); Platelet Count 326 K/mcL (140-400); Red Blood Count 3.98 M/mcL (4.19-5.50); Red Cell Distribution Width 12.4 % (11.5-14.5); Segmented Neutrophils % 73.6 %; White Blood Count 10.1 K/mcL (4.3-11.1)
[2018-10-20 07:20] LABS: BUN/Creatinine Ratio 26 (6-26); Blood Urea Nitrogen 21 mg/dL (8-23); Calcium 8.6 mg/dL (8.6-10.3); Carbon Dioxide 25 mEq/L (23-29); Chloride 106 mEq/L (98-107); Glucose 180 mg/dL (70-105); Osmolality,Calculated 290 (280-300); Potassium 3.7 mEq/L (3.5-5.1); Sodium 136 mEq/L (136-145); eGFR For African Americans > 60 (> 60); eGFR For Non-African Americans > 60 (> 60)
--- NOTE | 2018-10-20 07:40 | Internal Med Progress Note ---
<Vani Givens - Last Filed: 10/20/18 11:11> Hospitalist Progress Note - Encounter Date of Encounter: 10/20/18 - Exam Vitals: Temp Pulse Resp BP Pulse Ox 98.5 F 84 14 120/76 97 10/20/18 06:57 10/20/18 06:57 10/20/18 06:57 10/20/18 06:57 10/20/18 06:57 - Assessment and Plan (1) Osteomyelitis Current Visit: Yes Status: Suspected (2) Diabetes Current Visit: Yes Status: Chronic (3) Tobacco abuse Current Visit: Yes Status: Chronic - Time Spent with Patient Total time spent is greater than 50% in coordination of care (as documented) at patient's floor/unit and/or counseling patient: Internal Medicine: Result - Labs CBC & Chem 7: 10/20/18 06:17 10/20/18 06:17 Labs: Short CBC 10/20/18 Range/Units 06:17 WBC 10.1 (4.3-11.1) K/mcL Hgb 12.1 L (12.9-16.9) g/dL Hct 34.3 L (37.5-50.1) % Plt Count 326 (140-400) K/mcL Neutrophils # 7.4 (1.6-8.9) K/mcL BMP 10/20/18 06:17 Sodium 136 Potassium 3.7 Chloride 106 Carbon Dioxide 25 BUN 21 Creatinine 0.81 Glucose 180 H Calcium 8.6 Consult Discharge Plan - Plan Referrals: Sai Calle DPM [Partnered Physician] - 10/23/18 11:00 am NONE,PCP [Primary Care Provider] - - Attending Attestation I examined this patient and my medical decision-making was reviewed with the Resident Physician on Dr Hodges. I agree with the documented findings, disposition and treatment plan as described except to the extent set forth below. Mr Peña is 68 y/o male with DM admitted for osteomyleitis requiring surgical intervention awake, no fevers or chills, pain is tolerable, only present after being out of bed gen- alert, awake,appears stated age cv- reg rate and rhythm, normal s1,s2 lungs- ctabl, normal resp effort on room air skin- dressing bl feet c/d/i 1. Cellulitis and possible OM s/p Left 2nd toe and Right 3rd toe amputation 10/18/18 bl cxs ngtd, left wound cxr prelim gnrs, right wound cx ngtd, bone path remains pending -IV Vanc 2. HTN- cont current regimen, fu with pcp Further diagnoses and plan as noted by resident <Anderson Hodges - Last Filed: 10/20/18 14:03> Hospitalist Progress Note - Encounter Date of Encounter: 10/20/18 Time of Encounter: 07:40 - Subjective Interval History: No acute events overnight in no acute complaints this morning, other than lamenting having to stay in the hospital. - Exam Vitals: Temp Pulse Resp BP Pulse Ox 98.5 F 84 14 120/76 97 10/20/18 06:57 10/20/18 06:57 10/20/18 06:57 10/20/18 06:57 10/20/18 06:57 Exam: Gen: NAD, alert and oriented 3 Eyes: No scleral icterus, normal conjunctiva CV: RRR, S1/S2 WNL, no murmurs, rubs, gallops Lungs: CTA bilaterally, no wheezes, rales, rhonchi GI: Abdomen soft and nontender, normoactive BS Ext: No significant edema, sensation intact Skin: Dry, no rashes. Dressings dry, intact. Two quarter-sized spots of serosanguineous drainage on left bandage - Assessment and Plan (1) Osteomyelitis Current Visit: Yes Status: Suspected Assessment and Plan: S/P left #2, right #3 toe amputations. No acute changes overnight. Surgical wounds dressed. White count normal. Afebrile. - Wound cultures and bone biopsy pending for antibiotic recs per podiatry. - Continue IV cefepime, vancomycin. - Awaiting blood cultures. - Limited wt bearing, post-op shoe bilaterally, no dressing changes unless saturated per podiatry. Once culture/pathology results are complete and outpatient antibiotic recommendations can be made patient will be stable for discharge (2) EKG abnormality Current Visit: No Status: Chronic Assessment and Plan: Patient comfortable, in no acute distress. Continues to deny cp and dyspnea. Afebrile. His EKG on admission revealed nonspecific ST changes in the lateral leads suspicious for remote infarct. - Echo revealed LVEF of 55% w/mild segmental LV systolic dysfunction and BBB. - Continue to monitor. Tight BP control. (3) Diabetes Current Visit: Yes Status: Chronic Assessment and Plan: - Continue Accu-Cheks, low-dose sliding scale insulin protocol and Levemir 10 units at bedtime A.m. blood sugar improved to 180 today We will give the patient 1 more day on basal and sliding scale before considering at meal insulin (4) HTN (hypertension) Current Visit: Yes Status: Chronic Assessment and Plan: Patient with history of HTN not managed medically. He has not been to a PCP in many years. BP ranges 154-122/66-74. Patient was started on Lisinopril 10 mg and Hydralazine 10 mg IV Q8H PRN if SBP >160. He has tolerated meds well without side effects. BUN and Cr 16 and 0.76 respectively. Due to history of uncontrolled DM, lisinopril will be continued for renal protection. - Hydralazine has been held since yesterday. Patient has responded well to lisinopril with recent BP of 131/75 following midnight dose. - We will d/c hydralazine at this time. - Increase Lisinopril to 20 mg PO daily. - Monitor for hyperkalemia. - Continue to monitor vitals. DVT Prophylaxis: Subcutaneous heparin - Time Spent with Patient Total time spent is greater than 50% in coordination of care (as documented) at patient's floor/unit and/or counseling patient: Internal Medicine: Result - Labs CBC & Chem 7: 10/20/18 06:17 10/20/18 06:17 Labs: Short CBC 10/20/18 Range/Units 06:17 WBC 10.1 (4.3-11.1) K/mcL Hgb 12.1 L (12.9-16.9) g/dL Hct 34.3 L (37.5-50.1) % Plt Count 326 (140-400) K/mcL Neutrophils # 7.4 (1.6-8.9) K/mcL BMP 10/20/18 06:17 Sodium 136 Potassium 3.7 Chloride 106 Carbon Dioxide 25 BUN 21 Creatinine 0.81 Glucose 180 H Calcium 8.6 ____ <Vani Givens - Last Filed: 10/20/18 11:11> (1) Osteomyelitis Qualifiers: Osteomyelitis type: unspecified type Osteomyelitis location: foot Laterality: unspecified laterality Qualified Code(s): M86.9 - Osteomyelitis, unspecified (2) Diabetes Qualifiers: Diabetes mellitus type: type 2 Diabetes mellitus shirt ironer insulin use: without long-term use Diabetes mellitus complication status: with skin complications Diabetes mellitus complication detail: with foot ulcer Qualified Code(s): E11.621 - Type 2 diabetes mellitus with foot ulcer; L97.509 - Non- pressure chronic ulcer of other part of unspecified foot with unspecified severity <Anderson Hodges - Last Filed: 10/20/18 14:03> (1) Osteomyelitis Qualifiers: Osteomyelitis type: unspecified type Osteomyelitis location: foot Laterality: unspecified laterality Qualified Code(s): M86.9 - Osteomyelitis, unspecified (3) Diabetes Qualifiers: Diabetes mellitus type: type 2 Diabetes mellitus shirt ironer insulin use: without long-term use Diabetes mellitus complication status: with skin c omplications Diabetes mellitus complication detail: with foot ulcer Qualified Code(s): E11.621 - Type 2 diabetes mellitus with foot ulcer; L97.509 - Non- pressure chronic ulcer of other part of unspecified foot with unspecified severity (4) HTN (hypertension) Qualifiers: Hypertension type: essential hypertension Qualified Code(s): I10 - Essential (primary) hypertension
[2018-10-20] MEDS ORDERED: Aminoglycoside Consult 1 EACH MC ONE (08:28)
[2018-10-20] MEDS: Lisinopril 20 MG TABLET PO SCH (08:31)
[2018-10-20] MEDS: Insulin LISPRO 300 UNITS/3 ML VIAL SQ SCH ×3 (08:31→17:31)
[2018-10-20] MEDS: Insulin DETEMIR 100 UNIT/ML X5UNITS SQ SCH (21:46)
[2018-10-21] MEDS: Piperacillin/Tazobactam 3.375 GM in 0.9 % Sodium Chloride Mini Bag 100 ML IVPB SCH ×3 (01:29→17:28)
[2018-10-21] MEDS: *HR* Heparin 5,000 UNIT/ML VIAL SQ SCH ×2 (05:19→17:16)
[2018-10-21] MEDS: Cefepime HCl 2,000 MG in Water for inj. (sterile) 20 ML IVP SCH ×2 (05:21→17:17)
--- NOTE | 2018-10-21 07:39 | Internal Med Progress Note ---
<Vani Givens - Last Filed: 10/21/18 09:46> Hospitalist Progress Note - Encounter Date of Encounter: 10/21/18 - Exam Vitals: Temp Pulse Resp BP Pulse Ox 98.3 F 81 15 143/73 97 10/21/18 06:55 10/21/18 06:55 10/21/18 06:55 10/21/18 06:55 10/21/18 06:55 - Assessment and Plan (1) Osteomyelitis Current Visit: Yes Status: Suspected (2) Diabetes Current Visit: Yes Status: Chronic (3) Tobacco abuse Current Visit: Yes Status: Chronic - Time Spent with Patient Total time spent is greater than 50% in coordination of care (as documented) at patient's floor/unit and/or counseling patient: Internal Medicine: Result - Labs CBC & Chem 7: 10/20/18 06:17 10/20/18 06:17 Consult Discharge Plan - Plan Referrals: Sai Calle DPM [Partnered Physician] - 10/23/18 11:00 am NONE,PCP [Primary Care Provider] - - Attending Attestation I examined this patient and my medical decision-making was reviewed with the Resident Physician on Dr Hodges. I agree with the documented findings, disposition and treatment plan as described except to the extent set forth below. Mr Peña is 68 y/o male with DM admitted for foot wounds and possible osteomyleitis awake, mild left foot pain persists, dried blood on dressing but denies active bleeding, updated to micro results and bone path pending, he has no concerns or questions gen- alert, awake,appears stated age cv- reg rate and rhythm, normal s1,s2, no le bl legs, cannot eval feet given dressings lungs- ctabl, normal resp effort on room air skin- dressing bl feet with small spots dried blood, no active bleeding 1. Cellulitis and possible OM s/p Left 2nd toe and Right 3rd toe amputation 10/18/18 Left foot wound + morganella Right foot wound neg for cx growth Bone bxs remain pending -cont zosyn, ID consult for review of finalized results, which will hopefully be available tomorrow and will dictate abx tx on dc 2. HTN- initiated acei, have recently increased dose, cont to monitor, fu with pcp Further diagnoses and plan as noted by resident <Anderson Hodges - Last Filed: 10/21/18 13:48> Hospitalist Progress Note - Encounter Date of Encounter: 10/21/18 Time of Encounter: 07:39 - Subjective Interval History: No acute events overnight. The patient states he continually feels well and is anxious to leave. We did explain to him that it is necessary to continue IV antibiotics until we have bone pathology back and confirm or rule out the p resence of osteomyelitis. He stated he understood and agreed. - Exam Vitals: Temp Pulse Resp BP Pulse Ox 98.3 F 81 15 143/73 97 10/21/18 06:55 10/21/18 06:55 10/21/18 06:55 10/21/18 06:55 10/21/18 06:55 Exam: Gen: NAD, alert and oriented 3 Eyes: No scleral icterus, normal conjunctiva CV: RRR, S1/S2 WNL, no murmurs, rubs, gallops Lungs: CTA bilaterally, no wheezes, rales, rhonchi GI: Abdomen soft and nontender, normoactive BS Ext: No significant edema, sensation intact Skin: Dry, no rashes. Dressings dry, intact. Two quarter-sized spots of serosanguineous drainage on bandage - Assessment and Plan (1) Osteomyelitis Current Visit: Yes Status: Suspected Assessment and Plan: S/P left #2, right #3 toe amputations. No acute changes overnight. Surgical wounds dressed. White count normal. Afebrile. - Wound cultures have resulted with Morganella and bone biopsy pending for antibiotic recs per podiatry. - Continue IV cefepime, vancomycin and changed to Zosyn yesterday, continue. - Blood cultures so far without growth, there is low suspicion for bacteremia at this point. - Limited wt bearing, post-op shoe bilaterally, no dressing changes unless saturated per podiatry. Once pathology results are complete and outpatient antibiotic recommendations can be made patient will be stable for discharge (2) EKG abnormality Current Visit: No Status: Chronic Assessment and Plan: Patient comfortable, in no acute distress. Continues to deny cp and dyspnea. Afebrile. His EKG on admission revealed nonspecific ST changes in the lateral leads suspicious for remote infarct. - Echo revealed LVEF of 55% w/mild segmental LV systolic dysfunction and BBB. - Continue to monitor. Tight BP control. Recommend outpatient cardiology follow-up at discharge (3) Diabetes Current Visit: Yes Status: Chronic Assessment and Plan: - Continue Accu-Cheks, low-dose sliding scale insulin protocol and Levemir 10 units at bedtime Patient's blood sugars appear to be well-controlled in the morning, we will continue to monitor and assess the need for meal time insulin (4) HTN (hypertension) Current Visit: Yes Status: Chronic Assessment and Plan: Patient has history of hypertension not managed as an outpatient He was started on lisinopril and as needed hydralazine here His blood pressure has been adequately managed on 20 mg lisinopril by mouth daily We will continue that regimen and continue to monitor DVT Prophylaxis: Subcutaneous heparin - Time Spent with Patient Total time spent is greater than 50% in coordination of care (as documented) at patient's floor/unit and/or counseling patient: Internal Medicine: Result - Labs CBC & Chem 7: 10/20/18 06:17 10/20/18 06:17 <Vani Givens - Last Filed: 10/21/18 09:46> (1) Osteomyelitis Qualifiers: Osteomyelitis type: unspecified type Osteomyelitis location: foot Laterality: unspecified laterality Qualified Code(s): M86.9 - Osteomyelitis, unspecified (2) Diabetes Qualifiers: Diabetes mellitus type: type 2 Diabetes mellitus usp insulin use: without longwall shearer operator use Diabetes mellitus complication status: with skin complications Diabetes mellitus complication detail: with foot ulcer Qualified Code(s): E11.621 - Type 2 diabetes mellitus with foot ulcer; L97.509 - Non- pressure chronic ulcer of other part of unspecified foot with unspecified severity <Anderson Hodges - Last Filed: 10/21/18 13:48> (1) Osteomyelitis Qualifiers: Osteomyelitis type: unspecified type Osteomyelitis location: foot Laterality: unspecified laterality Qualified Code(s): M86.9 - Osteomyelitis, unspecified (3) Diabetes Qualifiers: Diabetes mellitus type: type 2 Diabetes mellitus longwall shearer operator insulin use: without usp use Diabetes mellitus complication status: with skin complications Diabetes mellitus complication detail: with foot ulcer Qualified Code(s): E11.621 - Type 2 diabetes mellitus with foot ulcer; L97.509 - Non- pressure chronic ulcer of other part of unspecified foot with unspecified severity (4) HTN (hypertension) Qualifiers: Hypertension type: essential hypertension Qualified Code(s): I10 - Essential (primary) hypertension
[2018-10-21] MEDS: Lisinopril 20 MG TABLET PO SCH (08:47)
[2018-10-21] MEDS: Insulin LISPRO 300 UNITS/3 ML VIAL SQ SCH ×3 (08:49→17:34)
[2018-10-21] MEDS: Insulin DETEMIR 100 UNIT/ML X5UNITS SQ SCH (20:22)
[2018-10-22] MEDS: Piperacillin/Tazobactam 3.375 GM in 0.9 % Sodium Chloride Mini Bag 100 ML IVPB SCH ×2 (00:09→08:29)
[2018-10-22 04:02] LABS: Basophils # 0.1 K/mcL (0.0-0.2); Basophils % 0.5 %; Eosinophils # 0.2 K/mcL (0.0-0.6); Eosinophils % 2.1 %; Hematocrit 33.6 % (37.5-50.1); Immature Granulocytes % 0.5 % (0-4); Lymphocytes # 1.5 K/mcL (0.6-4.6); Mean Corpuscular HGB Conc 35.7 g/dL (31.6-35.5); Mean Corpuscular Hemoglobin 30.7 pg (28.0-33.3); Mean Corpuscular Volume 85.9 fL (83.0-100.0); Mean Platelet Volume 9.9 fL (9.4-12.4); Monocytes # 0.9 K/mcL (0.0-1.3); Neutrophils # 6.9 K/mcL (1.6-8.9); Platelet Count 326 K/mcL (140-400); Red Blood Count 3.91 M/mcL (4.19-5.50); Red Cell Distribution Width 12.4 % (11.5-14.5); Segmented Neutrophils % 71.9 %; White Blood Count 9.6 K/mcL (4.3-11.1)
[2018-10-22 04:08] LABS: BUN/Creatinine Ratio 29 (6-26); Blood Urea Nitrogen 23 mg/dL (8-23); Calcium 8.4 mg/dL (8.6-10.3); Carbon Dioxide 27 mEq/L (23-29); Chloride 104 mEq/L (98-107); Glucose 210 mg/dL (70-105); Osmolality,Calculated 296 (280-300); Potassium 4.2 mEq/L (3.5-5.1); Sodium 138 mEq/L (136-145); eGFR For African Americans > 60 (> 60); eGFR For Non-African Americans > 60 (> 60)
[2018-10-22] MEDS: *HR* Heparin 5,000 UNIT/ML VIAL SQ SCH ×2 (05:01→17:00)
[2018-10-22] MEDS: Cefepime HCl 2,000 MG in Water for inj. (sterile) 20 ML IVP SCH ×2 (05:02→16:59)
--- NOTE | 2018-10-22 08:09 | Internal Med Progress Note ---
<Carlton Moreira - Last Filed: 10/22/18 09:34> Hospitalist Progress Note - Encounter Date of Encounter: 10/22/18 Time of Encounter: 08:08 - Subjective Interval History: No acute events overnight. Patient is awake, alert, sitting in chair comfortably and eating breakfast. He is anxious to be discharged home. We discussed that we are awaiting his bone biopsy results before we can discharge and that we will need to continue IV abx. He agreed to the plan. - Exam Vitals: Temp Pulse Resp BP Pulse Ox 98.0 F 81 15 164/78 98 10/22/18 07:20 10/22/18 07:20 10/22/18 07:20 10/22/18 07:20 10/22/18 07:20 Exam: Gen: NAD, alert and oriented 3, comfortable, in chair Eyes: No scleral icterus, normal conjunctiva, EOMI CV: RRR, S1/S2 WNL, no murmurs, rubs, gallops Lungs: CTA bilaterally, no wheezes, rales, rhonchi GI: Abdomen soft and nontender, normoactive BS, no guarding Ext: No significant edema, sensation intact Skin: Dry, no rashes. Dressings dry, intact. - Assessment and Plan (1) Osteomyelitis Current Visit: Yes Status: Suspected Assessment and Plan: S/P left #2, right #3 toe amputations. No acute changes overnight. Surgical wounds dressed with boot on both lower extremities. Continues to remain afebrile. - Wound cultures have resulted with Morganella sensitive to Cefepime and Zosyn. - Bone biopsy pending for antibiotic recs per podiatry. - Continue IV cefepime, zosysn. - Blood cultures are without growth. Bacteremia r/o at this time. - Limited wt bearing, post-op shoe bilaterally, no dressing changes unless saturated per podiatry. - Awaiting bone biopsy results for antibiotic recommendations prior to tyson abreu. (2) EKG abnormality Current Visit: No Status: Chronic Assessment and Plan: Patient comfortable, in no acute distress. No cp or dyspnea. EKG on admission revealed nonspecific ST changes in the lateral leads suspicious for remote infarct. - Echo revealed LVEF of 55% w/mild segmental LV systolic dysfunction and BBB. - Continue to monitor. Tight BP control. Recommend outpatient cardiology fol low-up at discharge (3) HTN (hypertension) Current Visit: Yes Status: Chronic Assessment and Plan: Patient has history of hypertension. Not medically managed as an outpatient. Blood pressure has been adequately managed on 20 mg lisinopril daily. - Recommend continuation of current Lisinopril regimen at discharge for renal protection and HTN. - PCP follow-up at discharge for continued management. (4) Diabetes Current Visit: Yes Status: Chronic Assessment and Plan: - Continue Accu-Cheks, low-dose sliding scale insulin protocol and Levemir 10 units at bedtime. Continue to monitor at this time. Recommend PCP follow-up at discharge for further management. DVT Prophylaxis: Subcutaneous heparin - Time Spent with Patient Total time spent is greater than 50% in coordination of care (as documented) at patient's floor/unit and/or counseling patient: Plan of Care Discussed with: patient Internal Medicine: Result - Labs CBC & Chem 7: 10/22/18 03:29 10/22/18 03:29 Labs: Short CBC 10/22/18 Range/Units 03:29 WBC 9.6 (4.3-11.1) K/mcL Hgb 12.0 L (12.9-16.9) g/dL Hct 33.6 L (37.5-50.1) % Plt Count 326 (140-400) K/mcL Neutrophils # 6.9 (1.6-8.9) K/mcL BMP 10/22/18 03:29 Sodium 138 Potassium 4.2 Chloride 104 Carbon Dioxide 27 BUN 23 Creatinine 0.80 Glucose 210 H Calcium 8.4 L Consult Discharge Plan - Plan Referrals: Sai Calle DPM [Partnered Physician] - 10/23/18 11:00 am NONE,PCP [Primary Care Provider] - <Vani Givens - Last Filed: 10/22/18 14:17> Hospitalist Progress Note - Encounter Date of Encounter: 10/22/18 - Exam Vitals: Temp Pulse Resp BP Pulse Ox 97.8 F 90 14 124/70 99 10/22/18 10:42 10/22/18 10:42 10/22/18 10:42 10/22/18 10:42 10/22/18 10:42 - Assessment and Plan (1) Osteomyelitis Current Visit: Yes Status: Suspected (2) Diabetes Current Visit: Yes Status: Chronic (3) Tobacco abuse Current Visit: Yes Status: Chronic - Time Spent with Patient Total time spent is greater than 50% in coordination of care (as documented) at patient's floor/unit and/or counseling patient: Internal Medicine: Result - Labs CBC & Chem 7: 10/22/18 03:29 10/22/18 03:29 Labs: Short CBC 10/22/18 Range/Units 03:29 WBC 9.6 (4.3-11.1) K/mcL Hgb 12.0 L (12.9-16.9) g/dL Hct 33.6 L (37.5-50.1) % Plt Count 326 (140-400) K/mcL Neutrophils # 6.9 (1.6-8.9) K/mcL BMP 10/22/18 03:29 Sodium 138 Potassium 4.2 Chloride 104 Carbon Dioxide 27 BUN 23 Creatinine 0.80 Glucose 210 H Calcium 8.4 L - Attending Attestation I examined this patient and my medical decision-making was reviewed with the Resident Physician on Dr Hodges. I agree with the documented findings, disposition and treatment plan as described except to the extent set forth below. Mr Peña is 68 y/o male with DM admitted for foot wounds and osteomyleitis awake, no pain, fevers, or chills gen- alert, awake,appears stated age cv- reg rate and rhythm, normal s1,s2 lungs- ctabl, normal resp effort on room air skin- boots in place bilaterally, cannot visualize wounds today 1. Cellulitis and BL Toe OM s/p Left 2nd toe and Right 3rd toe amputation 10/18/18 Left foot wound + morganella, Right foot wound neg for cx growth, Bone bxs BL osteo -cont cefepime, ID consulted for review of finalized results 2. HTN,s table- initiated acei, fu with pcp Further diagnoses and plan as noted by resident dispo=- if he requires IV abx he will need to dispo to snf per SW <Carlton Moreira M - Last Filed: 10/22/18 09:34> (1) Osteomyelitis Qualifiers: Osteomyelitis type: unspecified type Osteomyelitis location: foot Laterality: unspecified laterality Qualified Code(s): M86.9 - Osteomyelitis, unspecified (3) HTN (hypertension) Qualifiers: Hypertension type: essential hypertension Qualified Code(s): I10 - Essential (primary) hypertension (4) Diabetes Qualifiers: Diabetes mellitus type: type 2 Diabetes mellitus termite technician insulin use: without termite technician use Diabetes mellitus complication status: with skin complications Diabetes mellitus complication detail: with foot ulcer Qualified Code(s): E11.621 - Type 2 diabetes mellitus with foot ulcer; L97.509 - Non- pressure chronic ulcer of other part of unspecified foot with unspecified severity <Vani Givens M - Last Filed: 10/22/18 14:17> (1) Osteomyelitis Qualifiers: Osteomyelitis type: unspecified type Osteomyelitis location: foot Laterality: unspecified laterality Qualified Code(s): M86.9 - Osteomyelitis, unspecified (2) Diabetes Qualifiers: Diabetes mellitus type: type 2 Diabetes mellitus fci insulin use: without fci use Diabetes mellitus complication status: with skin complications Diabetes mellitus complication detail: with foot ulcer Qualified Code(s): E11.621 - Type 2 diabetes mellitus with foot ulcer; L97.509 - Non- pressure chronic ulcer of other part of unspecified foot with unspecified severi ty
[2018-10-22] MEDS: Insulin LISPRO 300 UNITS/3 ML VIAL SQ SCH ×3 (08:28→17:00)
[2018-10-22] MEDS: Lisinopril 20 MG TABLET PO SCH (08:28)
--- NOTE | 2018-10-22 14:39 | Podiatry Progress Note ---
Date of Encounter: 10/22/18 Time of Encounter: 13:00 - Assessment and Plan (1) Osteomyelitis Current Visit: Yes Status: Suspected Assessment: -Surgical wounds left 2nd toe amputation and right 3rd toe amputation without evidence of infection, no ischemia, and no bleeding or drainage noted -PT/DP pulses per Doppler -Cap refill less than 3 seconds -Skin warm from tibia to toes -WBC 9.6 , afebrile -ESR 40, CRP 122 -Blood culture negative- final -Surgical wound cultures preliminary- morganella morgai ssp sibonii sensitive to cefepime and zosyn - Path reports positive for osteomyelitis bilaterally. -TCP O2 showed bilateral foot and ankle levels are consistent with healing -X ray of left and right foot pre op Stable mild lucency involving the distal phalanx of the right 3rd toe, possibly presenting acute osteomyelitis. There remain multiple punctate radiodensities within the soft tissues of the right 3rd toe, possibly retained foreign bodies. 3. No radiographic evidence of osteomyelitis involving the left foot. There does remain a stable unchanged age-indeterminate fracture of the 2nd middle phalanx of the left foot. Plan: -Pending wound cultures to determine final antibiotic recommendations, currently on IV zosyn with ID consulted -Limited weight bearing, bilateral diabetic boots, weight on heels - please elevate feet when up to chair to decrease dependent edema -Follow up with Dr. Calle in office, please schedule appointment prior to discharge -Do not change dressing unless it becomes saturated, reinforce if needed -Dressing changes Bilateral surgical wound flushed with sterile .9 NS and pat dry. Painted left surgical site with betadine. Adaptic placed over right 2nd and only 4x4 placed to 3rd toe amputation and covered Kerlix. Secured with medipore tape and stockinette. Patient tolerated well. Qualifiers: Osteomyelitis type: unspecified type Osteomyelitis location: foot Laterality: unspecified laterality Qualified Code(s): M86.9 - Osteomyelitis, unspecified Subjective Interval history: s/p amputation of right #3 and #2 left. Sitting up to chair. Resting comfortably. Denies any acute issues. VS stable. Denies any fevers, chills, n/v or fls. Denies any calf pain or sob. bilateral diabetic boots intact. Dressings intact to ble. Objective - Vital Signs Vital Signs: Vital Signs Temp Pulse Resp BP Pulse Ox 10/22/18 10:42 97.8 F 90 14 124/70 99 10/22/18 07:20 98.0 F 81 15 164/78 98 10/22/18 03:46 97.9 F 74 16 148/92 97 10/21/18 19:07 98.1 F 81 17 147/76 100 10/21/18 16:59 98.1 F 74 16 164/92 98 Intake and Output 10/21/18 10/22/18 10/22/18 23:59 07:59 15:59 Intake Total 240 / 900 20 / 260 240 / 260 Output Total 0 / 0 Balance 240 / 900 20 / 260 240 / 260 Intake: IV Fluids 120 / 340 20 / 20 Maxipime 2,000 MG In Water for 20 / 20 inj. (sterile) 20 ML @ 300 mls/ hr IVP Q12HR [facility] Rx#:[id number] Zosyn 3.375 GM In 0.9 % Sodium 100 / 300 Chloride (Mini-Bag +) 100 ML @ 25 mls/hr IVPB Q8HR [facility] Rx#: [id number] Oral 120 / 560 240 / 240 Output: Urine 0 / 0 Other: Meal Dinner Breakfast Percent of Meal Consumed 100% 100% Weight 86.6 kg Blood Glucose* 307 204 321 Patient Weight 10/22/18 23:59 Weight 86.6 kg - Exam Exam: Constitutional: Alert and oriented x 3 male, no acute distress noted Vascular: PT/DP pulses bilaterally per Doppler, cap refill less than 3 seconds, skin warm from tibia to toes, no pain with calf squeeze Neurological: Absent plantar reflex left, normal plantar reflex right Dermatological: Sutures intact to surgical wound left 2nd toe amputation and right 3rd toe amputation. mild maceration to surgical wound of left foot. Pitting edema of foot, dependent related to chronic foot dangling. No ischemia noted, no bleeding noted, no drainage noted. Musculoskeletal: 4/5 muscle strength - Lab Result Diagrams: 10/22/18 03:29 10/22/18 03:29 Labs: Abnormal lab results WBC 14.3 K/mcL (4.3-11.1) H 10/19/18 03:51 RBC 3.91 M/mcL (4.19-5.50) L 10/22/18 03:29 Hgb 12.0 g/dL (12.9-16.9) L 10/22/18 03:29 Hct 33.6 % (37.5-50.1) L 10/22/18 03:29 MCHC 35.7 g/dL (31.6-35.5) H 10/22/18 03:29 Neutrophils # 11.7 K/mcL (1.6-8.9) H 10/19/18 03:51 ESR 40 mm/hr (0-10) H 10/17/18 05:16 Sodium 135 mEq/L (136-145) L 10/19/18 03:51 BUN/Creatinine Ratio 29 (6-26) H 10/22/18 03:29 Glucose 210 mg/dL (70-105) H 10/22/18 03:29 POC Glucose 204 mg/dL (70-99) H 10/22/18 07:24 Hemoglobin A1c 9.6 % (-5.6) H 10/19/18 03:51 Calcium 8.4 mg/dL (8.6-10.3) L 10/22/18 03:29 Total Bilirubin 1.3 mg/dL (0.3-1.0) H 10/16/18 15:16 Direct Bilirubin 0.3 mg/dL (0.0-0.2) H 10/16/18 15:16 C-Reactive Protein 122 mg/L (Less than 10) H 10/17/18 05:16 Vancomycin Trough 20 mcg/mL (5-10) H 10/19/18 14:37 Microbiology, Last 48 Hours 10/16/18 15:16 Blood Culture - Final Peripheral Venipuncture No growth. Final report. 10/16/18 15:16 Blood Culture - Final Peripheral Venipuncture No growth. Final report. 10/18/18 14:53 Wound Culture - Final Left Foot Morganella obinna. ssp sibonii 10/18/18 14:53 Anaerobic Culture - Preliminary Surgery At this time, no anaerobic growth is present. The culture will be finalized after 5 days of incubation. 10/18/18 14:53 Anaerobic Culture - Preliminary Surgery At this time, no anaerobic growth is present. The culture will be finalized after 5 days of incubation. 10/18/18 14:53 Wound Culture - Final Right Foot Consult Discharge Plan - Plan Referrals: Sai Calle DPM [Partnered Physician] - 10/23/18 11:00 am NONE,PCP [Primary Care Provider] -
--- NOTE | 2018-10-22 15:43 | Infectious Disease Consult ---
Infectious Disease-Consult - Encounter Date/Time Date of Encounter: 10/22/18 Time of Encounter: 15:45 - Data of Consult Patient: new to practice Reason for consult: Osteomyelitis Requesting Physician: Vani Givens Primary Care Provider: PCP NONE - HPI HPI: Patient is a 68-year-old gentleman who presented to [facility] on 10/16/2018 for foot ulcers. We are consulted on 10/22/2018 for "Patient post/op bilateral toe amputation for concern of osteomyelitis. Wound cultures have resulted Morganella sibonii, patient currently on Zosyn. Requesting recomendations on outpatient antibiotic regimen prior to discharge. Bone pathology still pending. " Patient is 68-year-old gentleman with past medical history mentioned below i ncluding diabetes mellitus type 2 [id number] presented to the hospital complaining of bilateral lower extremity foot ulcers that have been present for about a month to 2 months. Patient lives alone in [place] does not work retired. Patient smokes pipe and drinks alcohol socially. Since admission, patient has been afebrile, tachycardic without tachypnea. Presenting labs revealed a WBC of 12.2 with normal differential no bandemia. BUN 11 creatinine 0.72. Lactic acid was not checked. Patient's hemoglobin A1c was checked 2 days in a row the first one was 8.7 the second it was 9.6. Blood cultures were obtained on 10/16/2018 and are no growth to date. Wound cultures in October 18 from the right foot and the left foot. Left foot culture was positive for Morganella morganii R: Augmentin, Unasyn and cefazolin. Right foot culture from the wound with no growth to date. Patient was taken to surgery 10/18/2018 where he underwent amputation of the distal second left toe at the metatarsophalangeal joint and amputation of the third toe right foot at the metatarsophalangeal joint. Intra-Op cultures no growth to date. Patient was noted to have acute osteomyelitis from the left side and the right side on pathology report. Patient was started empirically on vancomycin and cefepime. Vancomycin was stopped on 10/20/2018 and patient was given cefepime and Zosyn for 2 days and currently patient is on cefepime alone. We were asked to evaluate the patient and make further recommendations. Currently patient sitting up in chair. Appears nontoxic. Review of systems un remarkable denies any headache no chest pain or from some breath no nausea no vomiting or diarrhea. His last BM was yesterday. No urinary symptoms. - ROS Review of Systems: 10 point review of systems done, negative other for what mentioned in the history of present illness - Results CBC & Chem 7: 10/22/18 03:29 10/22/18 03:29 - Exam Vitals: Temp Pulse Resp BP Pulse Ox 98.2 F 87 12 147/78 99 10/22/18 14:00 10/22/18 14:00 10/22/18 14:00 10/22/18 14:00 10/22/18 14:00 Exam: GENERAL: Laying in bed, appears comfortable. HEAD: Normocephalic atraumatic EYES: PERRLA, EOMI, no conjunctival hemorrhage, sclera anicteric ENT: Mucous membranes moist, no oral thrush NECK: Supple. No meningeal signs. No masses LUNGS: Chest expanding symmetrically. Lungs sounds audible both lung aranda. No wheezing, no rhonchi CV: RRR, S1S2, ABDOMEN: Soft, nontender, nondistended. Bowel sounds audible BACK: No CVA tenderness. Normal inspection. No tenderness over the spine EXTREMITY: The lateral lower extremity surgically wrapped. SKIN: Normal color. No rash. NEURO: Awake alert oriented 3. No obvious focal deficit PSYCH: Calm and appropriate. No agitation. metFORMIN [Glucophage] 500 mg PO BIDWM 30 Days #60 tablet 10/14/18 [Rx] Naproxen [Naprosyn] 500 mg PO DAILY PRN 10/16/18 [History] Allergy/AdvReac Type Severity Reaction Status Date / Time No Known Allergies Allergy Verified 10/14/18 11:59 - Assessment and Plan (1) Sepsis Current Visit: Yes Status: Acute had 2 SIRS criteria on admission includling leukocytosis and tachycardia secondary to bilateral feet osteomyelitis. SNOMED Code(s): 44430699 (2) Osteomyelitis Current Visit: Yes Status: Suspected Secondary to diabetic foot ulcers bilaterally X-ray foot: mild lucency involving the distal phalanx of the right third toe, possibly representing acute osteomyelitis. No radiographic evidence of osteomyelitis involving the left foot s/p amputation 2nd left toe at MTP joint and 3rd right toe at MTP joint 10/18 Pathology confirmed osteomyelitis on the left and the right. Intra-Op cultures no growth. Keep in mind that patient has been on antibiotics for 2 days prior to surgery Wound culture on the left foot was positive for Morganella morganii Qualifiers: Osteomyelitis type: unspecified type Osteomyelitis location: foot Laterality: unspecified laterality Qualified Code(s): M86.9 - Osteomyelitis, unspecified SNOMED Code(s): 82981128 (3) Diabetes Current Visit: Yes Status: Chronic Qualifiers: Diabetes mellitus type: type 2 Diabetes mellitus termite exterminator insulin use: without termite exterminator use Diabetes mellitus complication status: with skin complications Diabetes mellitus complication detail: with foot ulcer Qualified Code(s): E11.621 - Type 2 diabetes mellitus with foot ulcer; L97.509 - Non-pressure chronic ulcer of other part of unspecified foot with unspecified severity SNOMED Code(s): 86341912 (4) Foot ulcer Current Visit: Yes Status: Resolved Qualifiers: Laterality: unspecified laterality Non-pressure ulcer stage: unspecified non-pressure ulcer stage Qualified Code(s): L97.509 - Non-pressure chronic ulcer of other part of unspecified foot with unspecified severity SNOMED Code(s): 89000425 (5) Tobacco abuse Current Visit: Yes Status: Chronic SNOMED Code(s): 890327995 (6) HTN (hypertension) Current Visit: Yes Status: Chronic Qualifiers: Hypertension type: essential hypertension Qualified Code(s): I10 - Essential (primary) hypertension SNOMED Code(s): 94008597 Past Med Surg Social Fam HX - Past Medical History Medical history: diabetes Additional medical history: Pt states they were diabetic for roughly 15 years. Psychiatric history: no psych history - Past Surgical History Surgical History: no surgical history - Social History Smoking Status: Current every day smoker Smokeless Tobacco Status: No Alcohol use: occasionally Drug use: none - Family History Mother History Unknown: Yes Adopted: No Living Status: Hx Family Cardiac Disorders: No Hx Family Respiratory Disorders: No Hx Family Cancer: Yes Hx Family GI Disorders: No Hx Family Genitourinary Disorders: No Hx Family Endocrine Disorder: Yes (Diabetes) Hx Family Musculoskeletal Disorders: No Hx Family Neuromuscular Disorders: No Hx Family Neurologic Disorders: No Hx Family HEENT Disorders: No Hx Family Autoimmune Disorders: No Hx Family Reproductive Disorders: No Hx Family Psychosocial Disorders: No Hx Family Medical Disorders: No Consult Discharge Plan - Plan Referrals: Sai Calle DPM [Partnered Physician] - 10/23/18 11:00 am NONE,PCP [Primary Care Provider] - - Attending Attestation the clinical picture is somewhat complicated. I dont know if we need to treat only the morganella which only grew on swab cultures or I should broaden the antibiotics. Both options have some risk and benefit. I will d/w with patient and hospitalist team. I would recommend 2 weeks of IV antibiotics and follow labs. IF patient does well then we might switch to an oral option for 2 more weeks we will likely d/c on IV rocephin 2 grams IV daily x 2 weeks weekly cbc, BUN/CR, ESR and CRP monitor labs and for drug toxicity
[2018-10-22] MEDS ORDERED: Insulin DETEMIR 100 UNIT/ML X5UNITS SQ SCH (21:00)
[2018-10-23 04:15] LABS: Basophils # 0.1 K/mcL (0.0-0.2); Basophils % 0.5 %; Eosinophils # 0.2 K/mcL (0.0-0.6); Eosinophils % 1.9 %; Hematocrit 32.9 % (37.5-50.1); Hemoglobin 11.9 g/dL (12.9-16.9); Immature Granulocytes % 0.5 % (0-4); Lymphocytes # 1.4 K/mcL (0.6-4.6); Lymphocytes % 12.3 %; Mean Corpuscular HGB Conc 36.2 g/dL (31.6-35.5); Mean Corpuscular Hemoglobin 30.6 pg (28.0-33.3); Mean Corpuscular Volume 84.6 fL (83.0-100.0); Mean Platelet Volume 10.2 fL (9.4-12.4); Monocytes # 0.8 K/mcL (0.0-1.3); Monocytes % 7.5 %; Neutrophils # 8.5 K/mcL (1.6-8.9); Platelet Count 327 K/mcL (140-400); Red Blood Count 3.89 M/mcL (4.19-5.50); Red Cell Distribution Width 12.4 % (11.5-14.5); Segmented Neutrophils % 77.3 %
[2018-10-23 04:31] LABS: BUN/Creatinine Ratio 34 (6-26); Blood Urea Nitrogen 27 mg/dL (8-23); Calcium 8.4 mg/dL (8.6-10.3); Carbon Dioxide 25 mEq/L (23-29); Chloride 103 mEq/L (98-107); Glucose 208 mg/dL (70-105); Osmolality,Calculated 295 (280-300); Potassium 4.1 mEq/L (3.5-5.1); Sodium 137 mEq/L (136-145); eGFR For African Americans > 60 (> 60); eGFR For Non-African Americans > 60 (> 60)
[2018-10-23] MEDS: *HR* Heparin 5,000 UNIT/ML VIAL SQ SCH (06:02)
[2018-10-23] MEDS: Cefepime HCl 2,000 MG in Water for inj. (sterile) 20 ML IVP SCH (06:03)
--- NOTE | 2018-10-23 08:01 | Internal Med Progress Note ---
Hospitalist Progress Note - Encounter Date of Encounter: 10/23/18 Time of Encounter: 08:01 - Exam Vitals: Temp Pulse Resp BP Pulse Ox 98.0 F 75 16 160/74 97 10/23/18 06:38 10/23/18 06:38 10/23/18 06:38 10/23/18 06:38 10/23/18 06:38 Exam: Gen: NAD, alert and oriented 3, comfortable, in chair Eyes: No scleral icterus, normal conjunctiva, EOMI CV: RRR, S1/S2 WNL, no murmurs, rubs, gallops Lungs: CTA bilaterally, no wheezes, rales, rhonchi GI: Abdomen soft and nontender, normoactive BS, no guarding Ext: No significant edema, sensation intact Skin: Dry, no rashes. Dressings dry, intact. - Assessment and Plan (1) Osteomyelitis Current Visit: Yes Status: Suspected (2) EKG abnormality Current Visit: No Status: Chronic (3) HTN (hypertension) Current Visit: Yes Status: Chronic (4) Diabetes Current Visit: Yes Status: Chronic - Time Spent with Patient Total time spent is greater than 50% in coordination of care (as documented) at patient's floor/unit and/or counseling patient: Internal Medicine: Result - Labs CBC & Chem 7: 10/23/18 03:33 10/23/18 03:33 Labs: Short CBC 10/23/18 Range/Units 03:33 WBC 11.0 (4.3-11.1) K/mcL Hgb 11.9 L (12.9-16.9) g/dL Hct 32.9 L (37.5-50.1) % Plt Count 327 (140-400) K/mcL Neutrophils # 8.5 (1.6-8.9) K/mcL BMP 10/23/18 03:33 Sodium 137 Potassium 4.1 Chloride 103 Carbon Dioxide 25 BUN 27 H Creatinine 0.80 Glucose 208 H Calcium 8.4 L Consult Discharge Plan - Plan Referrals: Sai Calle DPM [Partnered Physician] - 10/23/18 11:00 am NONE,PCP [Primary Care Provider] - (1) Osteomyelitis Qualifiers: Osteomyelitis type: unspecified type Osteomyelitis location: foot Laterality: unspecified laterality Qualified Code(s): M86.9 - Osteomyelitis, unspecified (3) HTN (hypertension) Qualifiers: Hypertension type: essential hypertension Qualified Code(s): I10 - Essential (primary) hypertension (4) Diabetes Qualifiers: Diabetes mellitus type: type 2 Diabetes mellitus usp insulin use: without oysterman use Diabetes mellitus complication status: with skin complications Diabetes mellitus complication detail: with foot ulcer Qualified Code(s): E11.621 - Type 2 diabetes mellitus with foot ulcer; L97.509 - Non- pressure chronic ulcer of other part of unspecified foot with unspecified severity
[2018-10-23] MEDS: Lisinopril 20 MG TABLET PO SCH (08:30)
[2018-10-23] MEDS: Insulin LISPRO 300 UNITS/3 ML VIAL SQ SCH ×2 (08:30→12:02)
--- NOTE | 2018-10-23 08:51 | Discharge Summary ---
<Carlton Moreira - Last Filed: 10/23/18 13:07> - NOTES TO OUTPATIENT PROVIDER Notes to Outpatient Provider: Mr. Peña is a 68 y/o M who presented to [facility] on 10/16/18 complaining of worsening diabetic ulcers of the left second and right third toes x 1 month. XR did not reveal signs of osteomyelitis and the patient was started on IV Cefepime and Vancomycin. Podiatry was consulted and recommended amputation w/intra-operative wound cultures and bone biopsy. Cultures revealed Morganella sensitive to Rocephin and bone biopsy was positive for osteomyelitis. Patient improved. Plan is to discharge on IV Rocephin 2g x 3 weeks and weekly CBC, BUN/Cr, ESR/CRP. He will need to be evaluated and managed for persistent HTN and hyperglycemia. Total hospital stay 7 days. Orders not resulted at time of discharge: Pending orders 10/18/18 14:53 Culture,Anaerobic [RM] Routine Culture,Anaerobic [RM] Routine Date of Encounter: 10/23/18 Time of Encounter: 08:49 - Discharge Diagnosis (1) Osteomyelitis Priority: Primary Status: Acute Assessment and Plan: Pt with bilateral osteomyelitis of the feet s/p left and right toe amputations. Improvement noted with IV antibiotics. - Discharged with PICC for outpatient IV Rocephin x 3 weeks. - F/U with Dr. Shaffer in [facility] w/in 2 weeks. - F/U with podiatry on 11/02/18. Qualifiers: Osteomyelitis type: unspecified type Osteomyelitis location: foot Laterality: unspecified laterality Qualified Code(s): M86.9 - Osteomyelitis, unspecified (2) HTN (hypertension) Priority: Secondary Status: Chronic Assessment and Plan: Patient had persistently elevated blood pressures that were controlled on 20 mg Lisinopril while admitted. - Pt discharged on 20 mg Lisinopril daily for 30 days. - F/U with Dr. Machuca for PCP management. Qualifiers: Hypertension type: essential hypertension Qualified Code(s): I10 - Essential (primary) hypertension (3) Diabetes Priority: Secondary Status: Chronic Assessment and Plan: Patient with uncontrolled diabetes mellitus with complications. Currently on 500 mg Metformin BID. It is unlikely that this regimen will be effective for controlling his hyperglycemia. He has not seen a PCP in many years. - Continue Metformin 500 mg BID at discharge. - Follow-up with Dr. Machuca at [facility] for PCP evaluation and management. Qualifiers: Diabetes mellitus type: type 2 Diabetes mellitus fdc insulin use: without fdc use Diabetes mellitus complication status: with skin compli cations Diabetes mellitus complication detail: with foot ulcer Qualified Code(s): E11.621 - Type 2 diabetes mellitus with foot ulcer; L97.509 - Non- pressure chronic ulcer of other part of unspecified foot with unspecified severity Hospital course: Mr. Peña is a 68 year old male w/PMHx of uncontrolled DM, HTN who presented to [facility] with 1 month history of progressively worsening left #2 and right #3 toe ulceration. He denied trauma and reported minimal pain with drainage. OP treatment with amoxicillin w/o improvement. Examination revealed severe necrosis of the toes without extension or signs of cellulitis. CXR was negative for acute process and bilateral foot XR revealed right third toe with lucency in the distal phalanx possibly representing acute osteomyelitis, left second toe without evidence of osteomyelitis. He was started on IV Cefepime and Vancomycin for empiric coverage in the ED with 1 L bolus on NS. Patient was admitted to the hospitalist service and podiatry consulted. Initial labs revealed WBC 14.8, glucose 290 and a mild increase in bilirubin considered insignificant. Podiatry was consulted for further care and recommended bilateral toe amputation. Patient was then taken for surgery without complications and tolerated the procedure well. He improved considerably following the procedure with resolution of leukocytosis on hospital day 4. Wound cultures revealed Morganella with sapp-sensitivity. Antibiotics were changed to IV Zosyn. Bone biopsy revealed evidence of osteomyelitis. Infectious disease was consulted and recommended outpatient IV Rocephin x 3 weeks with weekly CBC, BUN/Cr, ESR/CRP. Patient discharged today 10/23/18 with PICC placement for IV abx. Lisinopril added to patients medication regimen for uncontrolled HTN. Discharge discussed with: patient, nurse, social work - Time Spent with Patient Total time spent providing and/or coordinating discharge services: Time spent: Greater than 30 minutes - Discharge Medications Prescriptions: New Ceftriaxone Sodium [Ceftriaxone] 2 gm IV Q24H 21 Days #21 vial.port Lisinopril [Zestril] 20 mg PO DAILY 30 Days #30 tablet Continued Naproxen [Naprosyn] 500 mg PO DAILY PRN PRN Reason: Pain metFORMIN [Glucophage] 500 mg PO BIDWM 30 Days #60 tablet Home Medications: metFORMIN [Glucophage] 500 mg PO BIDWM 30 Days #60 tablet 10/14/18 [Rx] Naproxen [Naprosyn] 500 mg PO DAILY PRN 10/16/18 [History] Ceftriaxone Sodium [Ceftriaxone] 2 gm IV Q24H 21 Days #21 vial.port 10/23/18 [Rx] Lisinopril [Zestril] 20 mg PO DAILY 30 Days #30 tablet 10/23/18 [Rx] Allergies/Adverse Reactions: Allergy/AdvReac Type Severity Reaction Status Date / Time No Known Allergies Allergy Verified 10/14/18 11:59 Date of admission: 10/17/18 12:31 Primary care physician: PCP NONE Consults: 10/16/18 15:11 Consult to Podiatry [CONS] Stat Consulting Provider: [facility] Reason for Consult: diabetic foot infection Call Completed: Yes 10/18/18 00:03 Consult to Director Information [CONS] Routine Reason for SW Consult: No insurance 10/19/18 07:00 OT [Consult to Occupational Therapy] [CONS] Routine Comment: Evaluate, develop and implement POC Reason for Consult: Evaluate, develop and implement POC Does patient have active BEDREST order?: No Is patient medically & hemodynamically stable?: Yes Patient assessed for mobility or mobilized this visit?: Yes 10/21/18 08:08 Consult to Infectious Diseases [CONS] Routine Consulting Provider: [facility] Reason for Consult: Patient post/op bilateral toe amputation for concern of osteomyelitis. Wound cultures have resulted Morganella sibonii, patient currently on Zosyn. Requesting recomendations on outpatient antibiotic regimen prior to discharge. Bone pathology still pending. Time Notified: 08:10 Call Completed: No Discharging clinician: Carlton Moreira Anticipated date of discharge: 10/23/18 - Constitutional Vitals: Temp Pulse Resp BP Pulse Ox 98.0 F 75 16 160/74 97 10/23/18 06:38 10/23/18 06:38 10/23/18 06:38 10/23/18 06:38 10/23/18 06:38 General appearance: Present: A&O X 3 Exam: see below - Head Head exam: Present: atraumatic, normocephalic - Eye Eye exam: Present: EOMI, normal appearance, conjuntiva pink - ENT ENT exam: Present: mucous membranes moist - Neck Neck exam general surgery: Present: normal inspection, supple. Absent: tenderness - Respiratory Respiratory exam: Present: wheezes (mild left lower base). Absent: rales, respiratory distress, rhonchi, stridor - Cardiovascular Cardiovascular exam: Present: RRR, +S1, +S2. Absent: diastolic murmur, JVD, systolic murmur - GI/Abdominal GI/Abdominal exam: Present: normal bowel sounds, soft. Absent: distended, guarding, rigid, tenderness - Extremities Exam Extremities exam: Present: warm. Absent: cyanotic, pedal edema - Incison Comments: Dressings dry, intact. Two small spots of serosanguineous drainage on left bandage - Neurological Exam Neurological exam: Present: CN II-XII intact, no focal deficits. Absent: speech deficit - Psychiatric Psychiatric exam: Present: normal affect, normal mood - Skin Skin exam: Present: dry, intact, warm - Patient Status Disposition: Home, Self-Care Condition: Good Functional capacity at discharge: independent ambulation Overall status at discharge: patient is progressing back to baseline - Discharge Instructions Follow Up With: Jose David Machuca MD [Partnered Physician] - Herlinda Benito CNP [Advanced Practice Nurse] - 11/02/18 9:30 am Henrique Shaffer MD [Partnered Physician] - 11/07/18 9:45 am Additional Instructions: You will be sent home with a peripheral line and 3 weeks of IV antibiotics. You will obtain your IV antibiotic doses daily at [facility]. You will also obtain weekly laboratory studies consisting of CBC, BUN/CR, ESR and CRP. You will have a follow up appointment with Dr. Shaffer at [facility] within 2 weeks. Foot and wound care: -Limited weight bearing, bilateral diabetic boots, weight on heels -please elevate feet when up to chair to decrease dependent edema -Follow up with Dr. Calle and Herlinda Benito on 11/02/18 at 9:30AM. -Do not change dressing unless it becomes saturated, reinforce if needed PCP Follow-Up: - You will follow up with Dr. Machuca at [facility] for a primary care appointment. - You had persistently elevated blood pressures while at the hospital and will be sent home with 30 days of Lisinopril. - Continue your Metformin as prescribed. Low carbohydrate, low salt diet. - Naproxen for pain. Call 911 or immediately return to the emergency department if you develop p ersistently high fevers, or if you develop nausea, vomiting, chest pain. 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 Peña is a 68 year old male - Time Spent with Patient Total time spent providing and/or coordinating discharge services: Date of admission: 10/17/18 12:31 Primary care physician: PCP NONE Consults: 10/16/18 15:11 Consult to Podiatry [CONS] Stat Consulting Provider: [facility] Reason for Consult: diabetic foot infection Call Completed: Yes 10/18/18 00:03 Consult to Director Information [CONS] Routine Reason for SW Consult: No insurance 10/19/18 07:00 OT [Consult to Occupational Therapy] [CONS] Routine Comment: Evaluate, develop and implement POC Reason for Consult: Evaluate, develop and implement POC Does patient have active BEDREST order?: No Is patient medically & hemodynamically stable?: Yes Patient assessed for mobility or mobilized this visit?: Yes 10/21/18 08:08 Consult to Infectious Diseases [CONS] Routine Consulting Provider: [facility] Reason for Consult: Patient post/op bilateral toe amputation for concern of osteomyelitis. Wound cultures have resulted Morganella sibonii, patient currently on Zosyn. Requesting recomendations on outpatient antibiotic regimen prior to discharge. Bone pathology still pending. Time Notified: 08:10 Call Completed: No 10/23/18 11:34 PICC Consult [Consult to Invasive Line Access Team] [CONS] Routine Reason for Consult: Outpatient IV antibiotics Line Type: Midline - Constitutional Vitals: Temp Pulse Resp BP Pulse Ox 98.2 F 81 16 139/75 98 10/23/18 12:05 10/23/18 12:05 10/23/18 12:05 10/23/18 12:05 10/23/18 12:05 - Attending Attestation I examined this patient and my medical decision-making was reviewed with the Resident Physician on Dr Moreira. I agree with the documented findings, disposition and treatment plan as described except to the extent set forth below. Mr Peña is 68 y/o male with DM admitted for foot wounds and osteomyleitis. He is being discharged to home in stable condition with cont outpt IV abx treatment awake, feeling well. overall left foot pain is improved, no fevers or chills, very eager for dc. dc plan discussed and he has no questions. gen- alert, awake,appears stated age cv- reg rate and rhythm, normal s1,s2 lungs- ctabl, normal resp effort on room air skin- boots in place bilaterally 1. Cellulitis and BL Toe OM s/p Left 2nd toe and Right 3rd toe amputation 10/18/18- Left foot wound + morganella, Right foot wound neg for cx growth, Bone bxs BL osteo -appreciate ID input, outpt Rocephin IV, fu outpt with podiatry 2. HTN,stable- initiated acei, fu with pcp for further dose adjustments Further diagnoses and plan as noted by resident time spent on dc 50 min
[2018-10-23] MEDS ORDERED: cefTRIAXone 2,000 MG in 0.9 % Sodium Chloride Mini Bag 100 ML IVPB SCH (09:00)
--- NOTE | 2018-10-23 13:10 | Infectious Disease Progress No ---
ID Progress Note Date of Encounter: 10/23/18 Time of Encounter: 13:08 - Subjective Subjective: Patient seen and examined. Clinically looks great. Sitting up in a chair. Eager to go home. Denies any headaches no chest pain or firmness of breath no nausea no vomiting no diarrhea no urinary symptoms. Vital signs noted Labs reviewed Cultures no growth - Objective CBC & Chem 7: 10/23/18 03:33 10/23/18 03:33 - Exam Vitals: Temp Pulse Resp BP Pulse Ox 98.2 F 81 16 139/75 98 10/23/18 12:05 10/23/18 12:05 10/23/18 12:05 10/23/18 12:05 10/23/18 12:05 Exam: GENERAL: Comfortable. Laying in bed NAD HEENT: BRIAN, EOMI LUNGS: Good air sounds bilaterally, no wheezing or rhonchi CV: RRR, S1 S2 ABDOMEN: Soft, nontender, + bowel sounds EXT: Bilateral lower extremities are wrapped NEURO: A&OX3; no focal deficit - Assessment and Plan (1) Sepsis Current Visit: Yes Status: Acute had 2 SIRS criteria on admission includling leukocytosis and tachycardia secondary to bilateral feet osteomyelitis. SNOMED Code(s): 24138333 (2) Osteomyelitis Current Visit: Yes Status: Acute Secondary to diabetic foot ulcers bilaterally X-ray foot: mild lucency involving the distal phalanx of the right third toe, possibly representing acute osteomyelitis. No radiographic evidence of os teomyelitis involving the left foot s/p amputation 2nd left toe at MTP joint and 3rd right toe at MTP joint 10/18 Pathology confirmed osteomyelitis on the left and the right. Intra-Op cultures no growth. Keep in mind that patient has been on antibiotics for 2 days prior to surgery Wound culture on the left foot was positive for Morganella morganii Qualifiers: Qualified Code(s): M86.9 - Osteomyelitis, unspecified SNOMED Code(s): 55100799 (3) Diabetes Current Visit: Yes Status: Chronic Qualifiers: Qualified Code(s): E11.621 - Type 2 diabetes mellitus with foot ulcer; L97.509 - Non-pressure chronic ulcer of other part of unspecified foot with unspecified severity SNOMED Code(s): 18128911 (4) Foot ulcer Current Visit: Yes Status: Resolved Qualifiers: Qualified Code(s): L97.509 - Non-pressure chronic ulcer of other part of unspecified foot with unspecified severity SNOMED Code(s): 47243521 (5) Tobacco abuse Current Visit: Yes Status: Chronic SNOMED Code(s): 883399995 (6) HTN (hypertension) Current Visit: Yes Status: Chronic Qualifiers: Qualified Code(s): I10 - Essential (primary) hypertension SNOMED Code(s): 60986435 - Recommendations Recommendations: I discussed at length with the patient. He insists on going home. He lives alone. He thinks he will be able to go every day to [facility] to get a Rocephin infusion. I also discussed with Dr. Calle who is very concerned because he thinks there is a lot of ischemic component and he is worried about healing. Patient is to follow-up with me in clinic in 2 weeks Continue Rocephin 2 g IV every 24 hours Weekly CBC, BUN, creatinine, ESR and CRP Duration of treatment probably 2 weeks of IV followed by 2 weeks of by mouth. Consult Discharge Plan - Plan Additional Instructions: You will be sent home with a periphrial line and 3 weeks of IV antibiotics. You will obtain your IV antibiotic doses daily at [facility]. You will also obtain weekly laboratory studies consisiting of CBC, BUN/CR, ESR and CRP. -Limited weight bearing, bilateral diabetic boots, weight on heels -please elevate feet when up to chair to decrease dependent edema -Follow up with Dr. Calle in office, please schedule appointment prior to discharge -Do not change dressing unless it becomes saturated, reinforce if needed Referrals: Sai Calle DPM [Partnered Physician] - NONE,PCP [Primary Care Provider] - Jose David Machuca MD [Partnered Physician] - Herlinda Benito CNP [Advanced Practice Nurse] - 11/02/18 9:30 am Henrique Shaffer MD [Partnered Physician] - Prescriptions: Ceftriaxone Sodium [Ceftriaxone] 2 gm IV Q24H 21 Days #21 vial.port Lisinopril [Zestril] 20 mg PO DAILY 30 Days #30 tablet
--- NOTE | 2018-10-23 13:22 | Event Note ---
Date of Encounter: 10/23/18 Time of Encounter: 09:00 to serve as attending attestation to resident DC summary pending completion of note I examined this patient and my medical decision-making was reviewed with the Resident Physician on Dr Moreira. I agree with the documented findings, disposition and treatment plan as described except to the extent set forth below. Mr Peña is 68 y/o male with DM admitted for foot wounds and osteomyleitis. He is being discharged to home in stable condition with cont outpt IV abx treatment awake, feeling well. overall left foot pain is improved, no fevers or chills, very eager for dc. dc plan discussed and he has no questions. gen- alert, awake,appears stated age cv- reg rate and rhythm, normal s1,s2 lungs- ctabl, normal resp effort on room air skin- boots in place bilaterally 1. Cellulitis and BL Toe OM s/p Left 2nd toe and Right 3rd toe amputation 10/18/18- Left foot wound + morganella, Right foot wound neg for cx growth, Bone bxs BL osteo -appreciate ID input, outpt Rocephin IV, fu outpt with podiatry 2. HTN,stable- initiated acei, fu with pcp for further dose adjustments Further diagnoses and plan as noted by resident time spent on dc 50 min
[2018-10-23 15:36] VITALS: BP 138/79
[2018-10-23] MEDS ORDERED: cefTRIAXone 2,000 MG in Water for inj. (sterile) 20 ML IVP SCH (16:00)
== END 2018-10-23 18:21 | disposition home or self-care (01) | DRG 854 ==
LOC: EMEROOARM 13:59 → 3ANU 13:59 → SUATTDRO 16:14 → 3ANU 17:52
PROVIDERS: ADMIT Internal Medicine; ATTEND Internal Medicine

== ENCOUNTER 2019-04-30 15:27 | Inpatient (IN) ==
[2019-04-30] MEDS ORDERED: Isovue-370 500 ML BOTTLE IVP ONE (15:49)
[2019-04-30] MEDS ORDERED: 0.9 % Sodium Chloride 1,000 ML IVC STA (15:50)
[2019-04-30] MEDS ORDERED: Piperacillin/Tazobactam 3.375 GM in 0.9 % Sodium Chloride Mini Bag 100 ML IVPB ONE (15:52)
[2019-04-30 16:29] LABS: Basophils # 0.1 K/mcL (0.0-0.2); Basophils % 0.4 %; Eosinophils # 0.1 K/mcL (0.0-0.6); Eosinophils % 0.4 %; Hemoglobin 14.2 g/dL (12.9-16.9); Immature Granulocytes % 0.4 % (0-4); Lymphocytes # 1.1 K/mcL (0.6-4.6); Lymphocytes % 9.5 %; Mean Corpuscular HGB Conc 35.5 g/dL (31.6-35.5); Mean Corpuscular Hemoglobin 30.9 pg (28.0-33.3); Mean Corpuscular Volume 87.1 fL (83.0-100.0); Mean Platelet Volume 10.1 fL (9.4-12.4); Monocytes # 0.7 K/mcL (0.0-1.3); Monocytes % 6.1 %; Neutrophils # 9.5 K/mcL (1.6-8.9); Platelet Count 405 K/mcL (140-400); Red Blood Count 4.59 M/mcL (4.19-5.50); Red Cell Distribution Width 12.5 % (11.5-14.5); Segmented Neutrophils % 83.2 %; White Blood Count 11.4 K/mcL (4.3-11.1)
[2019-04-30 16:49] LABS: Alanine Aminotransferase 11 Units/L (7-52); Albumin 4.1 g/dL (3.5-5.7); Albumin/Globulin Ratio 1.4 (1.1-2.2); Alkaline Phosphatase 105 Units/L (34-104); Aspartate Amino Transferase 13 Units/L (13-39); BUN/Creatinine Ratio 19 (6-26); Bilirubin,Direct 0.4 mg/dL (0.0-0.2); Bilirubin,Indirect 1.2 mg/dL (0.0-1.0); Bilirubin,Total 1.6 mg/dL (0.3-1.0); Blood Urea Nitrogen 19 mg/dL (8-23); C-Reactive Protein 62 mg/L (Less than 10); Calcium 9.2 mg/dL (8.6-10.3); Carbon Dioxide 26 mEq/L (23-29); Chloride 101 mEq/L (98-107); Glucose 158 mg/dL (70-105); Osmolality,Calculated 286 (280-300); Potassium 3.8 mEq/L (3.5-5.1); Sodium 135 mEq/L (136-145); Total Protein 7.1 g/dL (6.4-8.9); eGFR For African Americans > 60 (> 60); eGFR For Non-African Americans > 60 (> 60)
[2019-04-30] MEDS ORDERED: Ondansetron ODT 4 MG TAB.RAPDIS SL PRN (17:37)
[2019-04-30] MEDS ORDERED: *HR* OxyCODONE Immed Rel 5 MG TABLET PO PRN (17:41)
[2019-04-30] MEDS ORDERED: Dextrose Gel 15 GM/37.5 ML TUBE PO PRN (18:33)
[2019-04-30] MEDS ORDERED: Ringers Solution, Lactated 1,000 ML IVC ONE (18:35)
[2019-04-30] MEDS: Insulin LISPRO 300 UNITS/3 ML VIAL SQ SCH ×2 (20:05→20:28)
[2019-04-30] MEDS: Piperacillin/Tazobactam 3.375 GM in 0.9 % Sodium Chloride Mini Bag 100 ML IVPB SCH (23:35)
[2019-05-01 01:51] LABS: Basophils # 0.1 K/mcL (0.0-0.2); Basophils % 0.6 %; Eosinophils # 0.1 K/mcL (0.0-0.6); Eosinophils % 1.5 %; Hematocrit 31.6 % (37.5-50.1); Immature Granulocytes % 0.2 % (0-4); Lymphocytes # 1.5 K/mcL (0.6-4.6); Mean Corpuscular HGB Conc 36.4 g/dL (31.6-35.5); Mean Corpuscular Hemoglobin 31.5 pg (28.0-33.3); Mean Corpuscular Volume 86.6 fL (83.0-100.0); Monocytes # 0.9 K/mcL (0.0-1.3); Monocytes % 9.8 %; Neutrophils # 6.3 K/mcL (1.6-8.9); Platelet Count 283 K/mcL (140-400); Red Blood Count 3.65 M/mcL (4.19-5.50); Red Cell Distribution Width 12.3 % (11.5-14.5); Segmented Neutrophils % 70.9 %; White Blood Count 8.8 K/mcL (4.3-11.1)
[2019-05-01 01:57] LABS: Hemoglobin 11.5 g/dL (12.9-16.9)
[2019-05-01 02:11] LABS: Alanine Aminotransferase 7 Units/L (7-52); Albumin 3.2 g/dL (3.5-5.7); Albumin/Globulin Ratio 1.4 (1.1-2.2); Alkaline Phosphatase 81 Units/L (34-104); Aspartate Amino Transferase 11 Units/L (13-39); BUN/Creatinine Ratio 17 (6-26); Bilirubin,Total 1.3 mg/dL (0.3-1.0); Blood Urea Nitrogen 19 mg/dL (8-23); Calcium 8.3 mg/dL (8.6-10.3); Carbon Dioxide 25 mEq/L (23-29); Chloride 107 mEq/L (98-107); Globulin 2.3 g/dL (2.4-3.5); Glucose 102 mg/dL (70-105); Osmolality,Calculated 288 (280-300); Potassium 3.7 mEq/L (3.5-5.1); Sodium 138 mEq/L (136-145); Total Protein 5.5 g/dL (6.4-8.9); eGFR For African Americans > 60 (> 60); eGFR For Non-African Americans > 60 (> 60)
[2019-05-01] MEDS: *HR* Enoxaparin 40 MG/0.4 ML SYRINGE SQ SCH (05:28)
[2019-05-01] MEDS: Insulin LISPRO 300 UNITS/3 ML VIAL SQ SCH ×4 (07:21→20:30)
[2019-05-01] MEDS: Piperacillin/Tazobactam 3.375 GM in 0.9 % Sodium Chloride Mini Bag 100 ML IVPB SCH ×2 (07:33→16:29)
[2019-05-01 08:16] LABS: Estimated Average Glucose 128 mg/dl
[2019-05-01] MEDS: Gentamicin Oint 15 GM TUBE TP SCH (16:29)
[2019-05-02] MEDS: 0.9 % Sodium Chloride 1,000 ML IVC SCH ×2 (00:50→20:55)
[2019-05-02] MEDS: Piperacillin/Tazobactam 3.375 GM in 0.9 % Sodium Chloride Mini Bag 100 ML IVPB SCH ×4 (00:50→23:21)
[2019-05-02] MEDS: Gentamicin Oint 15 GM TUBE TP SCH ×4 (00:52→20:55)
[2019-05-02 04:59] LABS: Basophils % 0.5 %; Eosinophils # 0.2 K/mcL (0.0-0.6); Eosinophils % 1.9 %; Hematocrit 31.2 % (37.5-50.1); Hemoglobin 11.4 g/dL (12.9-16.9); Immature Granulocytes % 0.3 % (0-4); Lymphocytes # 1.5 K/mcL (0.6-4.6); Lymphocytes % 18.5 %; Mean Corpuscular HGB Conc 36.5 g/dL (31.6-35.5); Mean Corpuscular Hemoglobin 31.8 pg (28.0-33.3); Mean Corpuscular Volume 86.9 fL (83.0-100.0); Mean Platelet Volume 10.2 fL (9.4-12.4); Monocytes # 0.8 K/mcL (0.0-1.3); Monocytes % 9.7 %; Neutrophils # 5.5 K/mcL (1.6-8.9); Platelet Count 285 K/mcL (140-400); Red Blood Count 3.59 M/mcL (4.19-5.50); Red Cell Distribution Width 12.3 % (11.5-14.5); Segmented Neutrophils % 69.1 %
[2019-05-02 05:18] LABS: Alanine Aminotransferase 9 Units/L (7-52); Albumin 3.3 g/dL (3.5-5.7); Albumin/Globulin Ratio 1.4 (1.1-2.2); Alkaline Phosphatase 75 Units/L (34-104); Aspartate Amino Transferase 10 Units/L (13-39); BUN/Creatinine Ratio 19 (6-26); Bilirubin,Total 1.2 mg/dL (0.3-1.0); Blood Urea Nitrogen 18 mg/dL (8-23); Calcium 8.4 mg/dL (8.6-10.3); Carbon Dioxide 25 mEq/L (23-29); Chloride 106 mEq/L (98-107); Globulin 2.3 g/dL (2.4-3.5); Glucose 114 mg/dL (70-105); Osmolality,Calculated 291 (280-300); Potassium 3.8 mEq/L (3.5-5.1); Sodium 139 mEq/L (136-145); Total Protein 5.6 g/dL (6.4-8.9); eGFR For African Americans > 60 (> 60); eGFR For Non-African Americans > 60 (> 60)
[2019-05-02] MEDS ORDERED: Heparin 1,000 UNITS/500 mL 500 ML ONE (06:20)
[2019-05-02] MEDS ORDERED: Isovue-300 150 ML INFUS..BTL ONE (06:20)
[2019-05-02] MEDS ORDERED: 0.9 % Sodium Chloride 1,000 ML ONE (06:20)
[2019-05-02] MEDS ORDERED: *HR* Heparin 10,000 UNIT/10 ML VIAL ONE (06:20)
[2019-05-02] MEDS: *HR* Enoxaparin 40 MG/0.4 ML SYRINGE SQ SCH (06:49)
[2019-05-02 06:52] LABS: Hepatitis B Surface Antigen Nonreactive (Nonreactive)
[2019-05-02] MEDS ORDERED: *HR* Midazolam HCl 2 MG/2 ML VIAL ONE (06:57)
[2019-05-02] MEDS ORDERED: *HR* FentaNYL (PF) 100 MCG/2 ML VIAL ONE (06:57)
[2019-05-02 07:21] LABS: Hepatitis B Core IgM Nonreactive (Nonreactive)
[2019-05-02 07:22] LABS: Hepatitis A Antibody IgM Nonreactive (Nonreactive); Hepatitis C Virus Antibody Nonreactive (Nonreactive)
[2019-05-02] MEDS ORDERED: Ondansetron 4 MG/2 ML VIAL IVP PRN (08:23)
[2019-05-02] MEDS ORDERED: *HR* HYDROcodone/Acet 5/325 mg TABLET PO PRN (08:23)
[2019-05-02] MEDS ORDERED: Acetaminophen 325 MG TABLET PO PRN (08:23)
[2019-05-02] MEDS: Insulin LISPRO 300 UNITS/3 ML VIAL SQ SCH ×4 (09:38→20:53)
[2019-05-02] MEDS ORDERED: Aspirin Enteric Coated 81 MG Tablet PO SCH (12:45)
[2019-05-03] MEDS: *HR* Enoxaparin 40 MG/0.4 ML SYRINGE SQ SCH (05:07)
[2019-05-03] MEDS: Insulin LISPRO 300 UNITS/3 ML VIAL SQ SCH ×2 (08:38→13:48)
[2019-05-03] MEDS: Piperacillin/Tazobactam 3.375 GM in 0.9 % Sodium Chloride Mini Bag 100 ML IVPB SCH (09:27)
[2019-05-03] MEDS: Gentamicin Oint 15 GM TUBE TP SCH (09:28)
[2019-05-03 11:33] VITALS: BP 129/66
[2019-05-03] MEDS ORDERED: Aminoglycoside Consult 1 EACH MC ONE (13:45)
== END 2019-05-03 13:46 | disposition home or self-care (01) | DRG 253 ==
LOC: EMEROOARM 15:27 → 3ANU 15:27 → SUATTDRO 17:33 → 3ANU 18:10 → ICNU 05-02 08:42 → 2NNU 05-02 18:15
PROVIDERS: ADMIT Family Medicine; ATTEND Internal Medicine

== ENCOUNTER 2019-06-22 11:28 | Inpatient (IN) ==
[2019-06-22] MEDS ORDERED: 0.9 % Sodium Chloride 1,000 ML IVC ONE (11:47)
[2019-06-22] MEDS ORDERED: Piperacillin/Tazobactam 3.375 GM in 0.9 % Sodium Chloride Mini Bag 100 ML IVPB ONE (11:47)
[2019-06-22 12:16] LABS: Basophils % 0.4 %; Eosinophils # 0.1 K/mcL (0.0-0.6); Eosinophils % 0.5 %; Hematocrit 37.9 % (37.5-50.1); Immature Granulocytes % 0.5 % (0-4); Lymphocytes # 1.1 K/mcL (0.6-4.6); Lymphocytes % 9.8 %; Mean Corpuscular HGB Conc 34.3 g/dL (31.6-35.5); Mean Corpuscular Hemoglobin 29.5 pg (28.0-33.3); Mean Corpuscular Volume 85.9 fL (83.0-100.0); Mean Platelet Volume 9.7 fL (9.4-12.4); Monocytes # 0.5 K/mcL (0.0-1.3); Monocytes % 4.8 %; Neutrophils # 9.4 K/mcL (1.6-8.9); Platelet Count 518 K/mcL (140-400); Red Blood Count 4.41 M/mcL (4.19-5.50); Red Cell Distribution Width 14.1 % (11.5-14.5); White Blood Count 11.2 K/mcL (4.3-11.1)
[2019-06-22 12:26] LABS: Alanine Aminotransferase 9 Units/L (7-52); Albumin 3.6 g/dL (3.5-5.7); Alkaline Phosphatase 100 Units/L (34-104); Aspartate Amino Transferase 10 Units/L (13-39); BUN/Creatinine Ratio 18 (6-26); Bilirubin,Total 1.2 mg/dL (0.3-1.0); Blood Urea Nitrogen 17 mg/dL (8-23); C-Reactive Protein 132 mg/L (Less than 10); Calcium 9.2 mg/dL (8.6-10.3); Carbon Dioxide 28 mEq/L (23-29); Chloride 99 mEq/L (98-107); Globulin 3.7 g/dL (2.4-3.5); Glucose 242 mg/dL (70-105); Osmolality,Calculated 292 (280-300); Sodium 136 mEq/L (136-145); Total Protein 7.3 g/dL (6.4-8.9); eGFR For African Americans > 60 (> 60); eGFR For Non-African Americans > 60 (> 60)
[2019-06-22] MEDS ORDERED: Naloxone 0.4 MG/ML INJ IVP PRN (16:20)
[2019-06-22] MEDS ORDERED: Dextrose Gel 15 GM/37.5 ML TUBE PO PRN ×2 (16:22)
[2019-06-22] MEDS ORDERED: D5% in Water 1,000 ML IVC PRN (16:22)
[2019-06-22] MEDS ORDERED: *HR* Dextrose 50 % in Water (Syg) 50 ML SYRINGE IVP PRN (16:22)
[2019-06-22] MEDS ORDERED: 0.9 % Sodium Chloride 1,000 ML IVC SCH (16:30)
[2019-06-22] MEDS: *HR* Heparin 5,000 UNIT/ML VIAL SQ SCH (17:42)
[2019-06-22] MEDS: Insulin LISPRO 300 UNITS/3 ML VIAL SQ SCH (17:42)
[2019-06-22] MEDS ORDERED: PIPERACILLIN IVPB SCH (21:00)
[2019-06-22] MEDS ORDERED: SODIUM CHLORIDE 0.9% IVPB SCH (21:00)
[2019-06-22] MEDS ORDERED: TAZOBACTAM IVPB SCH (21:00)
[2019-06-22] MEDS: Piperacillin/Tazobactam 3.375 GM in 0.9 % Sodium Chloride Mini Bag 100 ML IVPB SCH (21:20)
[2019-06-23 03:00] LABS: Alanine Aminotransferase 7 Units/L (7-52); Albumin 2.8 g/dL (3.5-5.7); Alkaline Phosphatase 71 Units/L (34-104); Aspartate Amino Transferase 8 Units/L (13-39); BUN/Creatinine Ratio 20 (6-26); Bilirubin,Total 0.8 mg/dL (0.3-1.0); Blood Urea Nitrogen 17 mg/dL (8-23); Calcium 7.9 mg/dL (8.6-10.3); Carbon Dioxide 25 mEq/L (23-29); Chloride 105 mEq/L (98-107); Globulin 2.8 g/dL (2.4-3.5); Glucose 165 mg/dL (70-105); Osmolality,Calculated 289 (280-300); Sodium 137 mEq/L (136-145); Total Protein 5.6 g/dL (6.4-8.9); eGFR For African Americans > 60 (> 60); eGFR For Non-African Americans > 60 (> 60)
[2019-06-23] MEDS ORDERED: Piperacillin/Tazobactam 3.375 GM VIAL ONE (04:37)
[2019-06-23] MEDS: Piperacillin/Tazobactam 3.375 GM in 0.9 % Sodium Chloride Mini Bag 100 ML IVPB SCH ×3 (04:46→19:47)
[2019-06-23] MEDS: *HR* Heparin 5,000 UNIT/ML VIAL SQ SCH ×2 (04:49→17:09)
[2019-06-23] MEDS: Insulin LISPRO 300 UNITS/3 ML VIAL SQ SCH ×3 (07:29→17:10)
[2019-06-23 07:58] LABS: Basophils % 0.4 %; Eosinophils # 0.1 K/mcL (0.0-0.6); Eosinophils % 1.5 %; Hematocrit 27.4 % (37.5-50.1); Hemoglobin 9.7 g/dL (12.9-16.9); Immature Granulocytes % 0.4 % (0-4); Lymphocytes # 1.2 K/mcL (0.6-4.6); Lymphocytes % 14.4 %; Mean Corpuscular HGB Conc 35.4 g/dL (31.6-35.5); Mean Corpuscular Hemoglobin 30.3 pg (28.0-33.3); Mean Corpuscular Volume 85.6 fL (83.0-100.0); Mean Platelet Volume 9.6 fL (9.4-12.4); Monocytes # 0.5 K/mcL (0.0-1.3); Monocytes % 6.6 %; Neutrophils # 6.2 K/mcL (1.6-8.9); Platelet Count 340 K/mcL (140-400); Red Cell Distribution Width 14.1 % (11.5-14.5); Segmented Neutrophils % 76.7 %; White Blood Count 8.1 K/mcL (4.3-11.1)
[2019-06-23 10:10] LABS: Hematocrit 29.9 % (37.5-50.1); Hemoglobin 10.3 g/dL (12.9-16.9)
[2019-06-23 11:15] LABS: INR 1.2; Prothrombin Time 13.8 Seconds (9.4-12.1)
[2019-06-24 00:27] LABS: Hematocrit 27.8 % (37.5-50.1); Hemoglobin 9.8 g/dL (12.9-16.9); Mean Corpuscular HGB Conc 35.3 g/dL (31.6-35.5); Mean Platelet Volume 9.9 fL (9.4-12.4); Platelet Count 333 K/mcL (140-400); Red Blood Count 3.27 M/mcL (4.19-5.50); Red Cell Distribution Width 14.1 % (11.5-14.5); White Blood Count 9.3 K/mcL (4.3-11.1)
[2019-06-24 00:38] LABS: BUN/Creatinine Ratio 16 (6-26); Blood Urea Nitrogen 18 mg/dL (8-23); Calcium 8.1 mg/dL (8.6-10.3); Carbon Dioxide 25 mEq/L (23-29); Chloride 105 mEq/L (98-107); Glucose 129 mg/dL (70-105); Osmolality,Calculated 288 (280-300); Potassium 4.1 mEq/L (3.5-5.1); Sodium 137 mEq/L (136-145); eGFR For African Americans > 60 (> 60); eGFR For Non-African Americans > 60 (> 60)
[2019-06-24] MEDS: Piperacillin/Tazobactam 3.375 GM in 0.9 % Sodium Chloride Mini Bag 100 ML IVPB SCH ×3 (04:27→19:58)
[2019-06-24] MEDS: *HR* Heparin 5,000 UNIT/ML VIAL SQ SCH ×2 (04:31→17:13)
[2019-06-24] MEDS: Insulin LISPRO 300 UNITS/3 ML VIAL SQ SCH ×4 (07:01→21:52)
[2019-06-24] MEDS ORDERED: Bupivacaine/EPI 1:200k 0.25%PF 10 ML VIAL INFILT ONE (14:23)
[2019-06-24] MEDS ORDERED: *HR* FentaNYL (PF) 100 MCG/2 ML VIAL ONE (14:27)
[2019-06-24] MEDS ORDERED: Lidocaine -MPF 2% 2 ML VIAL ONE (14:34)
[2019-06-24] MEDS ORDERED: D5% in Water 1,000 ML IVC PRN (16:14)
[2019-06-24] MEDS ORDERED: Naloxone 0.4 MG/ML INJ IVP PRN (16:14)
[2019-06-24] MEDS ORDERED: *HR* Dextrose 50 % in Water (Syg) 50 ML SYRINGE IVP PRN (16:14)
[2019-06-24] MEDS ORDERED: Dextrose Gel 15 GM/37.5 ML TUBE PO PRN ×2 (16:14)
[2019-06-25] MEDS: Piperacillin/Tazobactam 3.375 GM in 0.9 % Sodium Chloride Mini Bag 100 ML IVPB SCH (05:18)
[2019-06-25] MEDS: *HR* Heparin 5,000 UNIT/ML VIAL SQ SCH ×2 (05:18→16:57)
[2019-06-25 07:51] LABS: Hemoglobin 10.3 g/dL (12.9-16.9); Mean Corpuscular HGB Conc 35.5 g/dL (31.6-35.5); Mean Corpuscular Hemoglobin 30.3 pg (28.0-33.3); Mean Corpuscular Volume 85.3 fL (83.0-100.0); Mean Platelet Volume 9.7 fL (9.4-12.4); Platelet Count 319 K/mcL (140-400); Red Cell Distribution Width 14.3 % (11.5-14.5); White Blood Count 8.3 K/mcL (4.3-11.1)
[2019-06-25 08:10] LABS: BUN/Creatinine Ratio 18 (6-26); Blood Urea Nitrogen 17 mg/dL (8-23); Carbon Dioxide 25 mEq/L (23-29); Chloride 105 mEq/L (98-107); Glucose 123 mg/dL (70-105); Osmolality,Calculated 287 (280-300); Potassium 4.3 mEq/L (3.5-5.1); Sodium 137 mEq/L (136-145); eGFR For African Americans > 60 (> 60); eGFR For Non-African Americans > 60 (> 60)
[2019-06-25] MEDS: Insulin LISPRO 300 UNITS/3 ML VIAL SQ SCH ×4 (08:22→21:16)
[2019-06-25] MEDS: Metoprolol XL (24 HR) Succ 25 MG TAB.ER.24H PO SCH (08:23)
[2019-06-25] MEDS ORDERED: Aminoglycoside Consult 1 EACH MC ONE (08:32)
[2019-06-25] MEDS ORDERED: Metoprolol XL (24 HR) Succ 25 MG TAB.ER.24H PO SCH (09:00)
[2019-06-25] MEDS ORDERED: Acetaminophen 325 MG TABLET PO PRN (09:09)
[2019-06-25] MEDS: Ampicillin/Sulbactam 3,000 MG in 0.9 % Sodium Chloride Mini Bag 100 ML IVPB SCH ×2 (11:33→16:57)
[2019-06-26] MEDS: Ampicillin/Sulbactam 3,000 MG in 0.9 % Sodium Chloride Mini Bag 100 ML IVPB SCH ×4 (00:06→17:36)
[2019-06-26 00:48] LABS: Hematocrit 29.3 % (37.5-50.1); Mean Corpuscular HGB Conc 34.1 g/dL (31.6-35.5); Mean Corpuscular Hemoglobin 29.1 pg (28.0-33.3); Mean Corpuscular Volume 85.2 fL (83.0-100.0); Mean Platelet Volume 9.9 fL (9.4-12.4); Platelet Count 301 K/mcL (140-400); Red Blood Count 3.44 M/mcL (4.19-5.50); Red Cell Distribution Width 14.3 % (11.5-14.5); White Blood Count 8.4 K/mcL (4.3-11.1)
[2019-06-26 01:06] LABS: BUN/Creatinine Ratio 20 (6-26); Blood Urea Nitrogen 23 mg/dL (8-23); Carbon Dioxide 26 mEq/L (23-29); Chloride 105 mEq/L (98-107); Glucose 152 mg/dL (70-105); Osmolality,Calculated 291 (280-300); Potassium 4.1 mEq/L (3.5-5.1); Sodium 137 mEq/L (136-145); eGFR For African Americans > 60 (> 60); eGFR For Non-African Americans > 60 (> 60)
[2019-06-26] MEDS: *HR* Heparin 5,000 UNIT/ML VIAL SQ SCH ×2 (05:32→17:36)
[2019-06-26] MEDS: Metoprolol XL (24 HR) Succ 25 MG TAB.ER.24H PO SCH (07:55)
[2019-06-26] MEDS: Insulin LISPRO 300 UNITS/3 ML VIAL SQ SCH ×4 (07:56→20:33)
[2019-06-27] MEDS: Ampicillin/Sulbactam 3,000 MG in 0.9 % Sodium Chloride Mini Bag 100 ML IVPB SCH ×4 (00:02→17:00)
[2019-06-27] MEDS: *HR* Heparin 5,000 UNIT/ML VIAL SQ SCH ×2 (05:16→17:00)
[2019-06-27] MEDS: Insulin LISPRO 300 UNITS/3 ML VIAL SQ SCH ×4 (08:12→21:01)
[2019-06-27] MEDS: Metoprolol XL (24 HR) Succ 25 MG TAB.ER.24H PO SCH (08:12)
[2019-06-28] MEDS: Ampicillin/Sulbactam 3,000 MG in 0.9 % Sodium Chloride Mini Bag 100 ML IVPB SCH ×4 (00:26→17:23)
[2019-06-28] MEDS: *HR* Heparin 5,000 UNIT/ML VIAL SQ SCH ×2 (06:06→17:23)
[2019-06-28] MEDS: Metoprolol XL (24 HR) Succ 25 MG TAB.ER.24H PO SCH (07:54)
[2019-06-28] MEDS: Insulin LISPRO 300 UNITS/3 ML VIAL SQ SCH ×3 (07:55→17:22)
[2019-06-28 14:04] VITALS: BP 131/64
[2019-06-28] MEDS ORDERED: *HR* Metformin 500 MG TABLET PO SCH (17:00)
== END 2019-06-28 18:52 | disposition home health service (06) | DRG 854 ==
LOC: 3ANU 11:28 → EMEROOARM 11:28 → SUATTDRO 13:11 → 3ANU 14:57
PROVIDERS: ADMIT Family Medicine; ATTEND Family Medicine

== ENCOUNTER 2020-04-20 16:19 | Inpatient (IN) ==
[2020-04-20 19:21] LABS: Basophils % 0.3 %; Eosinophils # 0.1 K/mcL (0.0-0.6); Eosinophils % 0.9 %; Hematocrit 31.5 % (37.5-50.1); Hemoglobin 10.9 g/dL (12.9-16.9); Immature Granulocytes % 0.1 % (0-4); Lymphocytes # 0.4 K/mcL (0.6-4.6); Lymphocytes % 6.6 %; Mean Corpuscular HGB Conc 34.6 g/dL (31.6-35.5); Mean Corpuscular Hemoglobin 30.2 pg (28.0-33.3); Mean Corpuscular Volume 87.3 fL (83.0-100.0); Mean Platelet Volume 10.1 fL (9.4-12.4); Monocytes # 0.5 K/mcL (0.0-1.3); Monocytes % 7.2 %; Neutrophils # 5.7 K/mcL (1.6-8.9); Platelet Count 162 K/mcL (140-400); Red Blood Count 3.61 M/mcL (4.19-5.50); Red Cell Distribution Width 16.8 % (11.5-14.5); Segmented Neutrophils % 84.9 %; White Blood Count 6.7 K/mcL (4.3-11.1)
[2020-04-20 19:31] LABS: INR 1.2; Prothrombin Time 13.4 Seconds (9.4-12.1)
[2020-04-20 19:33] LABS: Activated Partial Thrombo Time 38.3 Seconds (26.0-36.0)
[2020-04-20 20:02] LABS: Potassium 5.3 mEq/L (3.5-5.1)
[2020-04-20] MEDS ORDERED: 0.9 % Sodium Chloride 1,000 ML IV ONE (22:52)
[2020-04-20] MEDS ORDERED: Ondansetron 4 MG/2 ML VIAL IVP PRN (23:41)
[2020-04-20] MEDS ORDERED: Naloxone 0.4 MG/ML INJ IVP PRN (23:41)
[2020-04-20] MEDS ORDERED: Dextrose Gel 15 GM/37.5 ML TUBE PO PRN ×2 (23:44)
[2020-04-20] MEDS ORDERED: Calcium Gluconate 1gm/50mL 1 GM/50 ML BAG IVPB ONE (23:44)
[2020-04-20] MEDS ORDERED: D5% in Water 1,000 ML IVC PRN (23:44)
[2020-04-20] MEDS ORDERED: *HR* Dextrose 50 % in Water (Vial) 50 ML VIAL IVP PRN (23:44)
[2020-04-21 02:00] LABS: Basophils % 0.4 %; Eosinophils # 0.1 K/mcL (0.0-0.6); Eosinophils % 1.8 %; Hematocrit 29.8 % (37.5-50.1); Hemoglobin 10.4 g/dL (12.9-16.9); Immature Granulocytes % 0.2 % (0-4); Lymphocytes # 0.5 K/mcL (0.6-4.6); Lymphocytes % 10.1 %; Mean Corpuscular HGB Conc 34.9 g/dL (31.6-35.5); Mean Corpuscular Hemoglobin 30.4 pg (28.0-33.3); Mean Corpuscular Volume 87.1 fL (83.0-100.0); Mean Platelet Volume 10.2 fL (9.4-12.4); Monocytes # 0.4 K/mcL (0.0-1.3); Monocytes % 8.4 %; Neutrophils # 4.1 K/mcL (1.6-8.9); Platelet Count 152 K/mcL (140-400); Red Blood Count 3.42 M/mcL (4.19-5.50); Red Cell Distribution Width 17.1 % (11.5-14.5); Segmented Neutrophils % 79.1 %; White Blood Count 5.1 K/mcL (4.3-11.1)
[2020-04-21 02:09] LABS: Albumin 3.6 g/dL (3.5-5.7); Albumin/Globulin Ratio 1.5 (1.1-2.2); Bilirubin,Direct 0.5 mg/dL (0.0-0.2); Bilirubin,Total 1.5 mg/dL (0.3-1.0); Globulin 2.4 g/dL (2.4-3.5); Magnesium 2.2 mg/dL (1.6-2.6)
[2020-04-21 02:21] LABS: Calcium 8.8 mg/dL (8.6-10.3); Potassium 5.4 mEq/L (3.5-5.1)
[2020-04-21] MEDS ORDERED: Gadolinium Contrast Agent (WT Based) IV PRN (02:33)
[2020-04-21] MEDS ORDERED: Insulin Human Regular 5 UNIT in 0.9 % Sodium Chloride 10 ML IV ONE (02:33)
[2020-04-21] MEDS ORDERED: *HR* Dextrose 50 % in Water (Vial) 50 ML VIAL IVP ONE (02:33)
[2020-04-21] MEDS: 0.9 % Sodium Chloride 1,000 ML IVC SCH ×2 (03:02→05:56)
[2020-04-21 03:07] LABS: Estimated Average Glucose 111 mg/dl; Hemoglobin A1C 5.5 %
[2020-04-21] MEDS: *HR* Heparin 5,000 UNIT/ML VIAL SQ SCH ×3 (05:56→21:42)
[2020-04-21 06:06] LABS: Bilirubin,Urine Negative (Negative); Blood,Urine Negative (Negative); Clarity,Urine Clear (Clear); Color,Urine Light-Yellow (Yellow); Glucose,Urine (UA) Normal (Normal); Hyaline Casts,Urine Few per lpf (None Seen); Ketones,Urine Negative (Negative); Leukocyte Esterase,Urine Trace (Negative); Mucus,Urine Few per lpf (None-Few); Nitrite,Urine Negative (Negative); PH,Urine 5.5 pH Units (5.0-8.0); Protein,Urine Negative (Neg-Trace); RBC,Urine 0-3 per hpf (0-3); Specific Gravity,Urine 1.015 (1.010-1.025); Urobilinogen,Urine Normal (Normal)
[2020-04-21] MEDS ORDERED: Perflutren Lipid Microsphere 1.3 ML in 0.9 % Sodium Chloride 8.7 ML IVP PRN (07:48)
[2020-04-21 08:48] LABS: Potassium,Urine 35.2 mEq/L; Protein/Creatinine Ratio,Urine 0.13 mg/mg (0.00-0.20); Sodium, Urine 43.1 mEq/L
[2020-04-21] MEDS: Insulin LISPRO 300 UNITS/3 ML VIAL SUBQ SCH ×4 (09:22→20:10)
[2020-04-21 10:47] LABS: Calcium 8.6 mg/dL (8.6-10.3); Potassium 5.1 mEq/L (3.5-5.1)
[2020-04-21] MEDS: Furosemide 20 MG/2 ML VIAL IVP SCH ×2 (14:02→20:10)
[2020-04-21] MEDS: Piperacillin/Tazobactam 3.375 GM in 0.9 % Sodium Chloride Mini Bag 100 ML IVPB SCH ×2 (15:40→23:49)
[2020-04-21] MEDS ORDERED: Amoxicillin/Clavulanate 500 MG TABLET PO SCH (17:00)
[2020-04-21] MEDS: Doxycycline 100 MG in 0.9 % Sodium Chloride Mini Bag 100 ML IVPB SCH (20:09)
[2020-04-21] MEDS: Insulin DETEMIR 100 UNIT/ML X5UNITS SUBQ SCH (20:10)
[2020-04-22 01:40] LABS: Basophils % 0.2 %; Eosinophils # 0.1 K/mcL (0.0-0.6); Eosinophils % 1.8 %; Hematocrit 25.8 % (37.5-50.1); Hemoglobin 9.3 g/dL (12.9-16.9); Immature Granulocytes % 0.2 % (0-4); Lymphocytes # 0.5 K/mcL (0.6-4.6); Lymphocytes % 11.1 %; Mean Corpuscular Hemoglobin 30.6 pg (28.0-33.3); Mean Corpuscular Volume 84.9 fL (83.0-100.0); Mean Platelet Volume 10.5 fL (9.4-12.4); Monocytes # 0.4 K/mcL (0.0-1.3); Monocytes % 9.6 %; Neutrophils # 3.5 K/mcL (1.6-8.9); Platelet Count 148 K/mcL (140-400); Red Blood Count 3.04 M/mcL (4.19-5.50); Red Cell Distribution Width 16.8 % (11.5-14.5); Segmented Neutrophils % 77.1 %; White Blood Count 4.5 K/mcL (4.3-11.1)
[2020-04-22 01:59] LABS: Calcium 8.4 mg/dL (8.6-10.3); Potassium 5.1 mEq/L (3.5-5.1)
[2020-04-22] MEDS: *HR* Heparin 5,000 UNIT/ML VIAL SQ SCH ×3 (05:31→22:16)
[2020-04-22] MEDS ORDERED: Ringers Solution, Lactated 1,000 ML IVC ONE (07:48)
[2020-04-22] MEDS: Furosemide 20 MG/2 ML VIAL IVP SCH (08:12)
[2020-04-22] MEDS: Doxycycline 100 MG in 0.9 % Sodium Chloride Mini Bag 100 ML IVPB SCH (08:13)
[2020-04-22] MEDS: Insulin LISPRO 300 UNITS/3 ML VIAL SUBQ SCH ×4 (08:26→22:12)
[2020-04-22] MEDS: Piperacillin/Tazobactam 3.375 GM in 0.9 % Sodium Chloride Mini Bag 100 ML IVPB SCH ×2 (09:50→16:03)
[2020-04-22] MEDS: Metoprolol XL (24 HR) Succ 25 MG TAB.ER.24H PO SCH (12:19)
[2020-04-22] MEDS: DAPTOmycin 500 MG in 0.9 % Sodium Chloride 100 ML IVPB SCH (13:11)
[2020-04-22] MEDS ORDERED: Aspirin 325 MG TABLET PO ONE (15:22)
[2020-04-22 17:14] LABS: Adenovirus Not Detected (Not Detect); Bordetella Pertussis Not Detected (Not Detect); Chlamydophila pneumoniae Not Detected (Not Detect); Coronavirus 229E Not Detected (Not Detect); Coronavirus HKU1 Not Detected (Not Detect); Coronavirus NL63 Not Detected (Not Detect); Coronavirus OC43 Not Detected (Not Detect); Human Metapneumovirus Not Detected (Not Detect); Human Rhinovirus/Enterovirus Not Detected (Not Detect); Influenza A Subtype 2009 H1 Not Detected (Not Detect); Influenza B Not Detected (Not Detect); Mycoplasma pneumoniae Not Detected (Not Detect); Parainfluenza Virus 1 Not Detected (Not Detect); Parainfluenza Virus 2 Not Detected (Not Detect); Parainfluenza Virus 3 Not Detected (Not Detect); Parainfluenza Virus 4 Not Detected (Not Detect); Respiratory Syncytial Virus Not Detected (Not Detect); SARS-CoV-2 Not Detected (Not Detect)
[2020-04-22] MEDS: Insulin DETEMIR 100 UNIT/ML X5UNITS SUBQ SCH (22:16)
[2020-04-23] MEDS: Piperacillin/Tazobactam 3.375 GM in 0.9 % Sodium Chloride Mini Bag 100 ML IVPB SCH ×4 (00:02→23:57)
[2020-04-23] MEDS ORDERED: Albuterol 2.5 MG/3 ML NEBULIZER IH PRN (03:51)
[2020-04-23 05:48] LABS: Hematocrit 27.2 % (37.5-50.1); Hemoglobin 9.5 g/dL (12.9-16.9); Mean Corpuscular HGB Conc 34.9 g/dL (31.6-35.5); Mean Corpuscular Hemoglobin 30.3 pg (28.0-33.3); Mean Corpuscular Volume 86.6 fL (83.0-100.0); Mean Platelet Volume 10.2 fL (9.4-12.4); Platelet Count 138 K/mcL (140-400); Red Blood Count 3.14 M/mcL (4.19-5.50); Red Cell Distribution Width 16.6 % (11.5-14.5); White Blood Count 4.7 K/mcL (4.3-11.1)
[2020-04-23] MEDS: *HR* Heparin 5,000 UNIT/ML VIAL SQ SCH ×3 (06:37→22:44)
[2020-04-23 08:12] LABS: Calcium 8.2 mg/dL (8.6-10.3); Potassium 4.7 mEq/L (3.5-5.1)
[2020-04-23] MEDS: Insulin LISPRO 300 UNITS/3 ML VIAL SUBQ SCH ×4 (08:20→22:44)
[2020-04-23] MEDS: Metoprolol XL (24 HR) Succ 25 MG TAB.ER.24H PO SCH (08:32)
[2020-04-23] MEDS: DAPTOmycin 500 MG in 0.9 % Sodium Chloride 100 ML IVPB SCH (11:19)
[2020-04-23] MEDS: Insulin DETEMIR 100 UNIT/ML X5UNITS SUBQ SCH (22:43)
[2020-04-24 02:06] LABS: Hematocrit 30.9 % (37.5-50.1); Hemoglobin 10.7 g/dL (12.9-16.9); Mean Corpuscular HGB Conc 34.6 g/dL (31.6-35.5); Mean Corpuscular Hemoglobin 30.7 pg (28.0-33.3); Mean Corpuscular Volume 88.5 fL (83.0-100.0); Mean Platelet Volume 10.3 fL (9.4-12.4); Platelet Count 151 K/mcL (140-400); Red Blood Count 3.49 M/mcL (4.19-5.50); Red Cell Distribution Width 16.5 % (11.5-14.5); White Blood Count 5.6 K/mcL (4.3-11.1)
[2020-04-24 02:30] LABS: Calcium 8.5 mg/dL (8.6-10.3); Potassium 4.7 mEq/L (3.5-5.1); Uric Acid 6.8 mg/dL (2.3-7.6)
[2020-04-24] MEDS: *HR* Heparin 5,000 UNIT/ML VIAL SQ SCH ×3 (06:13→23:38)
[2020-04-24] MEDS: Metoprolol XL (24 HR) Succ 25 MG TAB.ER.24H PO SCH (08:41)
[2020-04-24] MEDS: Piperacillin/Tazobactam 3.375 GM in 0.9 % Sodium Chloride Mini Bag 100 ML IVPB SCH ×2 (08:43→16:58)
[2020-04-24] MEDS: Insulin LISPRO 300 UNITS/3 ML VIAL SUBQ SCH ×4 (08:56→20:30)
[2020-04-24] MEDS: DAPTOmycin 500 MG in 0.9 % Sodium Chloride 100 ML IVPB SCH (11:33)
[2020-04-24] MEDS: Albumin 25% 25gram/100mL 25 GM/100 ML IV.SOLN IVPB SCH ×2 (15:01→23:37)
[2020-04-24] MEDS: Insulin DETEMIR 100 UNIT/ML X5UNITS SUBQ SCH (21:03)
[2020-04-25] MEDS: Piperacillin/Tazobactam 3.375 GM in 0.9 % Sodium Chloride Mini Bag 100 ML IVPB SCH ×3 (01:33→17:25)
[2020-04-25 01:38] LABS: Hematocrit 31.2 % (37.5-50.1); Hemoglobin 10.6 g/dL (12.9-16.9); Mean Corpuscular Hemoglobin 30.3 pg (28.0-33.3); Mean Corpuscular Volume 89.1 fL (83.0-100.0); Mean Platelet Volume 10.2 fL (9.4-12.4); Platelet Count 151 K/mcL (140-400); Red Cell Distribution Width 16.9 % (11.5-14.5); White Blood Count 5.7 K/mcL (4.3-11.1)
[2020-04-25 03:19] LABS: Calcium 8.6 mg/dL (8.6-10.3); Potassium 4.7 mEq/L (3.5-5.1)
[2020-04-25] MEDS: *HR* Heparin 5,000 UNIT/ML VIAL SQ SCH ×3 (05:48→21:56)
[2020-04-25] MEDS: Insulin LISPRO 300 UNITS/3 ML VIAL SUBQ SCH ×4 (08:42→20:22)
[2020-04-25] MEDS: Metoprolol XL (24 HR) Succ 25 MG TAB.ER.24H PO SCH (08:44)
[2020-04-25] MEDS: Albumin 25% 25gram/100mL 25 GM/100 ML IV.SOLN IVPB SCH (08:45)
[2020-04-25] MEDS: DAPTOmycin 500 MG in 0.9 % Sodium Chloride 100 ML IVPB SCH (12:15)
[2020-04-25] MEDS: Insulin DETEMIR 100 UNIT/ML X5UNITS SUBQ SCH (20:17)
[2020-04-26] MEDS: Piperacillin/Tazobactam 3.375 GM in 0.9 % Sodium Chloride Mini Bag 100 ML IVPB SCH ×3 (01:56→17:09)
[2020-04-26 03:31] LABS: Hematocrit 31.1 % (37.5-50.1); Hemoglobin 10.8 g/dL (12.9-16.9); Mean Corpuscular HGB Conc 34.7 g/dL (31.6-35.5); Mean Corpuscular Hemoglobin 30.6 pg (28.0-33.3); Mean Corpuscular Volume 88.1 fL (83.0-100.0); Mean Platelet Volume 10.3 fL (9.4-12.4); Platelet Count 155 K/mcL (140-400); Red Blood Count 3.53 M/mcL (4.19-5.50); Red Cell Distribution Width 17.2 % (11.5-14.5); White Blood Count 4.9 K/mcL (4.3-11.1)
[2020-04-26 03:48] LABS: Calcium 8.4 mg/dL (8.6-10.3); Potassium 4.8 mEq/L (3.5-5.1)
[2020-04-26] MEDS: *HR* Heparin 5,000 UNIT/ML VIAL SQ SCH ×2 (05:44→11:24)
[2020-04-26] MEDS: Insulin LISPRO 300 UNITS/3 ML VIAL SUBQ SCH ×4 (07:35→20:19)
[2020-04-26] MEDS: Metoprolol XL (24 HR) Succ 25 MG TAB.ER.24H PO SCH (07:39)
[2020-04-26] MEDS: DAPTOmycin 500 MG in 0.9 % Sodium Chloride 100 ML IVPB SCH (10:15)
[2020-04-26] MEDS: Insulin DETEMIR 100 UNIT/ML X5UNITS SUBQ SCH (20:22)
[2020-04-27 01:57] LABS: Hematocrit 29.4 % (37.5-50.1); Hemoglobin 10.3 g/dL (12.9-16.9); Mean Corpuscular Hemoglobin 30.7 pg (28.0-33.3); Mean Corpuscular Volume 87.8 fL (83.0-100.0); Mean Platelet Volume 10.4 fL (9.4-12.4); Platelet Count 160 K/mcL (140-400); Red Blood Count 3.35 M/mcL (4.19-5.50); Red Cell Distribution Width 16.8 % (11.5-14.5); White Blood Count 4.7 K/mcL (4.3-11.1)
[2020-04-27 02:14] LABS: Calcium 8.4 mg/dL (8.6-10.3); Potassium 4.7 mEq/L (3.5-5.1)
[2020-04-27] MEDS: Piperacillin/Tazobactam 3.375 GM in 0.9 % Sodium Chloride Mini Bag 100 ML IVPB SCH ×2 (02:17→09:39)
[2020-04-27] MEDS: Insulin LISPRO 300 UNITS/3 ML VIAL SUBQ SCH ×4 (07:35→22:24)
[2020-04-27] MEDS: Metoprolol XL (24 HR) Succ 25 MG TAB.ER.24H PO SCH (09:39)
[2020-04-27] MEDS: DAPTOmycin 500 MG in 0.9 % Sodium Chloride 100 ML IVPB SCH (12:16)
[2020-04-27] MEDS: Cefepime HCl 2,000 MG in Water for inj. (sterile) 20 ML IVP SCH (13:42)
[2020-04-27] MEDS: metroNIDAZOLE 500 MG TABLET PO SCH ×2 (13:45→22:25)
[2020-04-27] MEDS: Insulin DETEMIR 100 UNIT/ML X5UNITS SUBQ SCH (22:25)
[2020-04-28] MEDS: Cefepime HCl 2,000 MG in Water for inj. (sterile) 20 ML IVP SCH ×2 (00:36→11:40)
[2020-04-28] MEDS: Insulin LISPRO 300 UNITS/3 ML VIAL SUBQ SCH ×4 (07:37→21:33)
[2020-04-28 07:45] LABS: Hematocrit 28.5 % (37.5-50.1); Hemoglobin 9.9 g/dL (12.9-16.9); Mean Corpuscular HGB Conc 34.7 g/dL (31.6-35.5); Mean Corpuscular Hemoglobin 30.4 pg (28.0-33.3); Mean Corpuscular Volume 87.4 fL (83.0-100.0); Mean Platelet Volume 10.3 fL (9.4-12.4); Platelet Count 182 K/mcL (140-400); Red Blood Count 3.26 M/mcL (4.19-5.50); Red Cell Distribution Width 17.2 % (11.5-14.5); White Blood Count 4.7 K/mcL (4.3-11.1)
[2020-04-28 08:06] LABS: Calcium 8.3 mg/dL (8.6-10.3); Potassium 4.9 mEq/L (3.5-5.1)
[2020-04-28] MEDS: metroNIDAZOLE 500 MG TABLET PO SCH ×3 (09:16→22:26)
[2020-04-28] MEDS: Metoprolol XL (24 HR) Succ 25 MG TAB.ER.24H PO SCH (09:16)
[2020-04-28] MEDS: DAPTOmycin 500 MG in 0.9 % Sodium Chloride 100 ML IVPB SCH (10:32)
[2020-04-28] MEDS ORDERED: 0.9 % Sodium Chloride 500 ML IVC ONE (11:23)
[2020-04-28] MEDS: Insulin DETEMIR 100 UNIT/ML X5UNITS SUBQ SCH (22:27)
[2020-04-29] MEDS: Cefepime HCl 2,000 MG in Water for inj. (sterile) 20 ML IVP SCH ×2 (00:17→14:22)
[2020-04-29] MEDS ORDERED: *HR* Labetalol 20 MG/4 ML SYRINGE IVP ONE (03:12)
[2020-04-29 03:41] LABS: Hematocrit 30.9 % (37.5-50.1); Hemoglobin 10.7 g/dL (12.9-16.9); Mean Corpuscular HGB Conc 34.6 g/dL (31.6-35.5); Mean Corpuscular Hemoglobin 30.1 pg (28.0-33.3); Mean Corpuscular Volume 86.8 fL (83.0-100.0); Mean Platelet Volume 10.3 fL (9.4-12.4); Platelet Count 193 K/mcL (140-400); Red Blood Count 3.56 M/mcL (4.19-5.50); Red Cell Distribution Width 17.2 % (11.5-14.5); White Blood Count 5.1 K/mcL (4.3-11.1)
[2020-04-29 04:01] LABS: Calcium 8.4 mg/dL (8.6-10.3); Potassium 5.1 mEq/L (3.5-5.1)
[2020-04-29] MEDS: Insulin LISPRO 300 UNITS/3 ML VIAL SUBQ SCH ×4 (08:09→22:42)
[2020-04-29] MEDS: Metoprolol XL (24 HR) Succ 25 MG TAB.ER.24H PO SCH (08:20)
[2020-04-29] MEDS: metroNIDAZOLE 500 MG TABLET PO SCH ×3 (08:20→22:45)
[2020-04-29] MEDS ORDERED: 0.9 % Sodium Chloride 1,000 ML IV SCH (11:15)
[2020-04-29] MEDS ORDERED: 0.9 % Sodium Chloride 1,000 ML ONE ×2 (11:19→14:17)
[2020-04-29] MEDS ORDERED: 0.9 % Sodium Chloride 1,000 ML IVC SCH (11:30)
[2020-04-29] MEDS: DAPTOmycin 500 MG in 0.9 % Sodium Chloride 100 ML IVPB SCH (13:14)
[2020-04-29] MEDS ORDERED: Heparin 1,000 UNITS/500 mL 500 ML ONE (14:17)
[2020-04-29] MEDS ORDERED: *HR* Heparin 10,000 UNIT/10 ML VIAL ONE (14:17)
[2020-04-29] MEDS ORDERED: Nitroglycerin 1,000 MCG/10 ML VIAL IV ONE (14:18)
[2020-04-29] MEDS ORDERED: ISOVUE-370 200 ML INFUS..BTL ONE (14:18)
[2020-04-29] MEDS ORDERED: *HR* FentaNYL (PF) 100 MCG/2 ML VIAL ONE (15:03)
[2020-04-29] MEDS ORDERED: *HR* Midazolam HCl 2 MG/2 ML VIAL ONE (15:03)
[2020-04-29] MEDS ORDERED: Metoprolol XL (24 HR) Succ 25 MG TAB.ER.24H PO ONE (16:32)
[2020-04-29] MEDS ORDERED: *HR* Heparin 5,000 UNIT/ML VIAL IVP PRN ×2 (16:44)
[2020-04-29 18:07] LABS: Hematocrit 31.4 % (37.5-50.1); Hemoglobin 10.7 g/dL (12.9-16.9); Mean Corpuscular HGB Conc 34.1 g/dL (31.6-35.5); Mean Corpuscular Hemoglobin 30.6 pg (28.0-33.3); Mean Corpuscular Volume 89.7 fL (83.0-100.0); Platelet Count 186 K/mcL (140-400); Red Cell Distribution Width 17.6 % (11.5-14.5); White Blood Count 5.3 K/mcL (4.3-11.1)
[2020-04-29 18:17] LABS: Heparin anti-factor XA UFH < 0.04 IU/mL (0.30-0.70); INR 1.3; Prothrombin Time 15.1 Seconds (9.4-12.1)
[2020-04-29] MEDS: Heparin 25,000UNIT/250ML 1/2NS 25,000 UNIT/250 ML IV.SOLN IVC SCH (18:25)
[2020-04-29] MEDS: Insulin DETEMIR 100 UNIT/ML X5UNITS SUBQ SCH (22:45)
[2020-04-30 01:26] LABS: Basophils % 0.7 %; Eosinophils # 0.2 K/mcL (0.0-0.6); Eosinophils % 2.8 %; Hematocrit 29.3 % (37.5-50.1); Hemoglobin 10.1 g/dL (12.9-16.9); Immature Granulocytes % 0.2 % (0-4); Lymphocytes # 0.8 K/mcL (0.6-4.6); Lymphocytes % 15.7 %; Mean Corpuscular HGB Conc 34.5 g/dL (31.6-35.5); Mean Corpuscular Hemoglobin 30.6 pg (28.0-33.3); Mean Corpuscular Volume 88.8 fL (83.0-100.0); Monocytes # 0.6 K/mcL (0.0-1.3); Neutrophils # 3.7 K/mcL (1.6-8.9); Platelet Count 191 K/mcL (140-400); Red Cell Distribution Width 17.2 % (11.5-14.5); Segmented Neutrophils % 69.6 %; White Blood Count 5.4 K/mcL (4.3-11.1)
[2020-04-30 01:38] LABS: Activated Partial Thrombo Time 77.8 Seconds (26.0-36.0)
[2020-04-30 01:43] LABS: Calcium 8.3 mg/dL (8.6-10.3)
[2020-04-30 02:00] LABS: Heparin anti-factor XA UFH 0.35 IU/mL (0.30-0.70)
[2020-04-30] MEDS: Cefepime HCl 2,000 MG in Water for inj. (sterile) 20 ML IVP SCH ×2 (02:10→14:23)
[2020-04-30] MEDS: Insulin LISPRO 300 UNITS/3 ML VIAL SUBQ SCH ×4 (08:31→23:12)
[2020-04-30] MEDS: Isosorbide MONOnitrate (24 HR) 30 MG TAB.ER.24H PO SCH (08:33)
[2020-04-30] MEDS: metroNIDAZOLE 500 MG TABLET PO SCH ×3 (08:33→23:12)
[2020-04-30] MEDS: Metoprolol XL (24 HR) Succ 25 MG TAB.ER.24H PO SCH (08:34)
[2020-04-30] MEDS: DAPTOmycin 500 MG in 0.9 % Sodium Chloride 100 ML IVPB SCH (10:45)
[2020-04-30] MEDS: Heparin 25,000UNIT/250ML 1/2NS 25,000 UNIT/250 ML IV.SOLN IVC SCH (23:01)
[2020-04-30] MEDS: Insulin DETEMIR 100 UNIT/ML X5UNITS SUBQ SCH (23:12)
[2020-05-01] MEDS: Cefepime HCl 2,000 MG in Water for inj. (sterile) 20 ML IVP SCH ×2 (01:26→12:02)
[2020-05-01 04:36] LABS: Basophils % 0.5 %; Eosinophils # 0.2 K/mcL (0.0-0.6); Eosinophils % 2.7 %; Hematocrit 28.3 % (37.5-50.1); Hemoglobin 9.7 g/dL (12.9-16.9); Immature Granulocytes % 0.2 % (0-4); Lymphocytes # 0.9 K/mcL (0.6-4.6); Lymphocytes % 14.3 %; Mean Corpuscular HGB Conc 34.3 g/dL (31.6-35.5); Mean Corpuscular Hemoglobin 30.7 pg (28.0-33.3); Mean Corpuscular Volume 89.6 fL (83.0-100.0); Mean Platelet Volume 10.4 fL (9.4-12.4); Monocytes # 0.6 K/mcL (0.0-1.3); Monocytes % 9.1 %; Neutrophils # 4.4 K/mcL (1.6-8.9); Platelet Count 212 K/mcL (140-400); Red Blood Count 3.16 M/mcL (4.19-5.50); Red Cell Distribution Width 17.4 % (11.5-14.5); Segmented Neutrophils % 73.2 %
[2020-05-01 04:47] LABS: Chol/HDL Ratio 2.4 (0-4.9)
[2020-05-01 05:14] LABS: Magnesium 2.1 mg/dL (1.6-2.6)
[2020-05-01] MEDS: Isosorbide MONOnitrate (24 HR) 30 MG TAB.ER.24H PO SCH (08:29)
[2020-05-01] MEDS ORDERED: Lidocaine 1% 20 ML MDV ONE (08:29)
[2020-05-01] MEDS: metroNIDAZOLE 500 MG TABLET PO SCH ×3 (08:29→20:13)
[2020-05-01] MEDS: Metoprolol XL (24 HR) Succ 25 MG TAB.ER.24H PO SCH (08:30)
[2020-05-01] MEDS: Insulin LISPRO 300 UNITS/3 ML VIAL SUBQ SCH ×4 (08:36→20:13)
[2020-05-01] MEDS ORDERED: Furosemide 40 MG TABLET PO SCH (09:00)
[2020-05-01] MEDS ORDERED: D5% in Water 1,000 ML IVC PRN (10:55)
[2020-05-01] MEDS ORDERED: Dextrose Gel 15 GM/37.5 ML TUBE PO PRN ×2 (10:55)
[2020-05-01] MEDS ORDERED: Ondansetron 4 MG/2 ML VIAL IVP PRN (10:55)
[2020-05-01] MEDS ORDERED: *HR* Dextrose 50 % in Water (Vial) 50 ML VIAL IVP PRN (10:55)
[2020-05-01] MEDS ORDERED: Heparin 25,000UNIT/250ML 1/2NS 25,000 UNIT/250 ML IV.SOLN IVC SCH (10:55)
[2020-05-01] MEDS ORDERED: Naloxone 0.4 MG/ML INJ IVP PRN (10:55)
[2020-05-01] MEDS ORDERED: *HR* Heparin 5,000 UNIT/ML VIAL IVP PRN ×2 (10:55)
[2020-05-01] MEDS ORDERED: Albuterol 2.5 MG/3 ML NEBULIZER IH PRN (10:55)
[2020-05-01] MEDS: DAPTOmycin 500 MG in 0.9 % Sodium Chloride 100 ML IVPB SCH (12:15)
[2020-05-01] MEDS: Furosemide 40 MG TABLET PO SCH (12:16)
[2020-05-01] MEDS: Aspirin 81 MG TAB.CHEW PO SCH (16:01)
[2020-05-01] MEDS: *HR* Heparin 5,000 UNIT/ML VIAL SQ SCH (18:52)
[2020-05-01] MEDS: Insulin DETEMIR 100 UNIT/ML X5UNITS SUBQ SCH (20:13)
[2020-05-02] MEDS: Cefepime HCl 2,000 MG in Water for inj. (sterile) 20 ML IVP SCH ×3 (00:07→23:43)
[2020-05-02 04:30] LABS: Basophils % 0.5 %; Eosinophils # 0.1 K/mcL (0.0-0.6); Eosinophils % 2.1 %; Hematocrit 28.7 % (37.5-50.1); Hemoglobin 9.8 g/dL (12.9-16.9); Immature Granulocytes % 0.2 % (0-4); Lymphocytes # 0.8 K/mcL (0.6-4.6); Lymphocytes % 12.6 %; Mean Corpuscular HGB Conc 34.1 g/dL (31.6-35.5); Mean Corpuscular Hemoglobin 30.5 pg (28.0-33.3); Mean Corpuscular Volume 89.4 fL (83.0-100.0); Monocytes # 0.7 K/mcL (0.0-1.3); Monocytes % 10.8 %; Neutrophils # 4.5 K/mcL (1.6-8.9); Platelet Count 227 K/mcL (140-400); Red Blood Count 3.21 M/mcL (4.19-5.50); Red Cell Distribution Width 17.4 % (11.5-14.5); Segmented Neutrophils % 73.8 %; White Blood Count 6.1 K/mcL (4.3-11.1)
[2020-05-02 04:48] LABS: Calcium 8.5 mg/dL (8.6-10.3); Potassium 4.9 mEq/L (3.5-5.1)
[2020-05-02] MEDS: *HR* Heparin 5,000 UNIT/ML VIAL SQ SCH ×2 (05:36→18:15)
[2020-05-02] MEDS: Insulin LISPRO 300 UNITS/3 ML VIAL SUBQ SCH ×4 (08:08→20:37)
[2020-05-02] MEDS ORDERED: Furosemide 40 MG TABLET PO SCH (09:00)
[2020-05-02] MEDS: Isosorbide MONOnitrate (24 HR) 30 MG TAB.ER.24H PO SCH (10:48)
[2020-05-02] MEDS: Furosemide 40 MG TABLET PO SCH (10:48)
[2020-05-02] MEDS: Metoprolol XL (24 HR) Succ 25 MG TAB.ER.24H PO SCH (10:48)
[2020-05-02] MEDS: Aspirin 81 MG TAB.CHEW PO SCH (10:48)
[2020-05-02] MEDS: metroNIDAZOLE 500 MG TABLET PO SCH ×3 (10:48→20:42)
[2020-05-02] MEDS: DAPTOmycin 500 MG in 0.9 % Sodium Chloride 100 ML IVPB SCH (12:23)
[2020-05-02] MEDS: lisinopriL 5 MG TABLET PO SCH (13:25)
[2020-05-02] MEDS: Insulin DETEMIR 100 UNIT/ML X5UNITS SUBQ SCH (20:42)
[2020-05-03 05:41] LABS: Basophils % 0.8 %; Eosinophils # 0.2 K/mcL (0.0-0.6); Eosinophils % 3.1 %; Hematocrit 30.2 % (37.5-50.1); Hemoglobin 10.4 g/dL (12.9-16.9); Immature Granulocytes % 0.4 % (0-4); Lymphocytes # 0.7 K/mcL (0.6-4.6); Lymphocytes % 13.7 %; Mean Corpuscular HGB Conc 34.4 g/dL (31.6-35.5); Mean Corpuscular Volume 89.9 fL (83.0-100.0); Mean Platelet Volume 9.9 fL (9.4-12.4); Monocytes # 0.6 K/mcL (0.0-1.3); Monocytes % 12.1 %; Neutrophils # 3.4 K/mcL (1.6-8.9); Platelet Count 220 K/mcL (140-400); Red Blood Count 3.36 M/mcL (4.19-5.50); Red Cell Distribution Width 17.5 % (11.5-14.5); Segmented Neutrophils % 69.9 %; White Blood Count 4.9 K/mcL (4.3-11.1)
[2020-05-03 06:03] LABS: Calcium 8.5 mg/dL (8.6-10.3); Potassium 4.7 mEq/L (3.5-5.1)
[2020-05-03] MEDS: *HR* Heparin 5,000 UNIT/ML VIAL SQ SCH ×2 (06:40→17:11)
[2020-05-03] MEDS: Insulin LISPRO 300 UNITS/3 ML VIAL SUBQ SCH ×4 (08:35→19:46)
[2020-05-03] MEDS: Aspirin 81 MG TAB.CHEW PO SCH (08:58)
[2020-05-03] MEDS: Furosemide 40 MG TABLET PO SCH (08:58)
[2020-05-03] MEDS: lisinopriL 5 MG TABLET PO SCH (08:59)
[2020-05-03] MEDS: Metoprolol XL (24 HR) Succ 25 MG TAB.ER.24H PO SCH (08:59)
[2020-05-03] MEDS: metroNIDAZOLE 500 MG TABLET PO SCH ×3 (09:00→21:44)
[2020-05-03] MEDS: Isosorbide MONOnitrate (24 HR) 30 MG TAB.ER.24H PO SCH (09:00)
[2020-05-03] MEDS: Cefepime HCl 2,000 MG in Water for inj. (sterile) 20 ML IVP SCH ×2 (13:09→23:37)
[2020-05-03] MEDS: DAPTOmycin 500 MG in 0.9 % Sodium Chloride 100 ML IVPB SCH (13:10)
[2020-05-03] MEDS: Insulin DETEMIR 100 UNIT/ML X5UNITS SUBQ SCH (21:44)
[2020-05-04 04:29] LABS: Basophils % 0.8 %; Eosinophils # 0.2 K/mcL (0.0-0.6); Eosinophils % 3.6 %; Hematocrit 29.4 % (37.5-50.1); Hemoglobin 10.2 g/dL (12.9-16.9); Immature Granulocytes % 0.2 % (0-4); Lymphocytes # 0.8 K/mcL (0.6-4.6); Lymphocytes % 16.2 %; Mean Corpuscular HGB Conc 34.7 g/dL (31.6-35.5); Mean Corpuscular Volume 89.4 fL (83.0-100.0); Mean Platelet Volume 10.1 fL (9.4-12.4); Monocytes # 0.6 K/mcL (0.0-1.3); Monocytes % 12.2 %; Neutrophils # 3.2 K/mcL (1.6-8.9); Platelet Count 220 K/mcL (140-400); Red Blood Count 3.29 M/mcL (4.19-5.50); Red Cell Distribution Width 17.2 % (11.5-14.5); White Blood Count 4.8 K/mcL (4.3-11.1)
[2020-05-04 04:49] LABS: Calcium 8.4 mg/dL (8.6-10.3); Potassium 4.7 mEq/L (3.5-5.1)
[2020-05-04] MEDS: *HR* Heparin 5,000 UNIT/ML VIAL SQ SCH ×2 (06:15→17:35)
[2020-05-04] MEDS: Insulin LISPRO 300 UNITS/3 ML VIAL SUBQ SCH ×4 (09:34→21:40)
[2020-05-04] MEDS: metroNIDAZOLE 500 MG TABLET PO SCH ×3 (09:41→21:41)
[2020-05-04] MEDS: Isosorbide MONOnitrate (24 HR) 30 MG TAB.ER.24H PO SCH (09:41)
[2020-05-04] MEDS: Furosemide 40 MG TABLET PO SCH (09:41)
[2020-05-04] MEDS: Aspirin 81 MG TAB.CHEW PO SCH (09:41)
[2020-05-04] MEDS: lisinopriL 5 MG TABLET PO SCH (09:42)
[2020-05-04] MEDS: Metoprolol XL (24 HR) Succ 25 MG TAB.ER.24H PO SCH (09:42)
[2020-05-04] MEDS: Cefepime HCl 2,000 MG in Water for inj. (sterile) 20 ML IVP SCH (12:33)
[2020-05-04] MEDS: DAPTOmycin 500 MG in 0.9 % Sodium Chloride 100 ML IVPB SCH (12:34)
[2020-05-04] MEDS ORDERED: Lidocaine -MPF 1% 5 ML AMPUL INFILT ONE (16:54)
[2020-05-04] MEDS: Insulin DETEMIR 100 UNIT/ML X5UNITS SUBQ SCH (21:42)
[2020-05-04 23:02] LABS: Influenza A PCR Negative (Negative); Influenza B PCR Negative (Negative); Resp. Syncytial Virus PCR Negative (Negative); SARS-CoV-2 by PCR (In House) Negative (Negative)
[2020-05-05] MEDS: Cefepime HCl 2,000 MG in Water for inj. (sterile) 20 ML IVP SCH (00:41)
[2020-05-05 03:15] LABS: Basophils % 0.8 %; Eosinophils # 0.2 K/mcL (0.0-0.6); Eosinophils % 3.5 %; Hematocrit 30.1 % (37.5-50.1); Hemoglobin 10.3 g/dL (12.9-16.9); Immature Granulocytes % 0.2 % (0-4); Lymphocytes # 0.7 K/mcL (0.6-4.6); Lymphocytes % 15.1 %; Mean Corpuscular HGB Conc 34.2 g/dL (31.6-35.5); Mean Corpuscular Hemoglobin 30.5 pg (28.0-33.3); Mean Corpuscular Volume 89.1 fL (83.0-100.0); Monocytes # 0.7 K/mcL (0.0-1.3); Monocytes % 13.7 %; Neutrophils # 3.2 K/mcL (1.6-8.9); Platelet Count 215 K/mcL (140-400); Red Blood Count 3.38 M/mcL (4.19-5.50); Red Cell Distribution Width 17.3 % (11.5-14.5); Segmented Neutrophils % 66.7 %; White Blood Count 4.8 K/mcL (4.3-11.1)
[2020-05-05 03:29] LABS: Calcium 8.6 mg/dL (8.6-10.3); Potassium 4.8 mEq/L (3.5-5.1)
[2020-05-05] MEDS: *HR* Heparin 5,000 UNIT/ML VIAL SQ SCH (05:48)
[2020-05-05 07:04] VITALS: BP 147/76
[2020-05-05] MEDS: Insulin LISPRO 300 UNITS/3 ML VIAL SUBQ SCH (08:23)
[2020-05-05] MEDS: Aspirin 81 MG TAB.CHEW PO SCH (08:36)
[2020-05-05] MEDS: Isosorbide MONOnitrate (24 HR) 30 MG TAB.ER.24H PO SCH (08:36)
[2020-05-05] MEDS: Metoprolol XL (24 HR) Succ 25 MG TAB.ER.24H PO SCH (08:37)
[2020-05-05] MEDS: Furosemide 40 MG TABLET PO SCH (08:37)
[2020-05-05] MEDS: metroNIDAZOLE 500 MG TABLET PO SCH (08:37)
[2020-05-05] MEDS: lisinopriL 5 MG TABLET PO SCH (08:37)
== END 2020-05-05 11:27 | DRG 616 ==
LOC: EMEROOARM 16:19 → 2NENU 16:19 → SUATTDRO 23:41 → 3NENU 23:45 → SUATTDRO 04-22 15:00 → 3NENU 04-22 22:29
PROVIDERS: ADMIT Family Medicine; ATTEND Internal Medicine

== ENCOUNTER 2020-07-16 22:49 | Inpatient (IN) ==
[2020-07-17] MEDS ORDERED: Ondansetron 4 MG/2 ML VIAL IVP PRN (01:35)
[2020-07-17] MEDS ORDERED: Naloxone 0.4 MG/ML INJ IVP PRN ×2 (01:35)
[2020-07-17] MEDS ORDERED: D5% in Water 1,000 ML IVC PRN (01:38)
[2020-07-17] MEDS ORDERED: *HR* Dextrose 50 % in Water (Vial) 50 ML VIAL IVP PRN (01:38)
[2020-07-17] MEDS ORDERED: Dextrose Gel 15 GM/37.5 ML TUBE PO PRN ×2 (01:38)
[2020-07-17 03:19] LABS: Basophils % 0.3 %; Eosinophils # 0.1 K/mcL (0.0-0.6); Eosinophils % 0.5 %; Hematocrit 25.3 % (37.5-50.1); Hemoglobin 8.2 g/dL (12.9-16.9); Immature Granulocytes % 0.5 % (0-4); Lymphocytes # 0.8 K/mcL (0.6-4.6); Lymphocytes % 8.1 %; Mean Corpuscular HGB Conc 32.4 g/dL (31.6-35.5); Mean Corpuscular Hemoglobin 29.5 pg (28.0-33.3); Mean Platelet Volume 9.4 fL (9.4-12.4); Monocytes # 0.8 K/mcL (0.0-1.3); Monocytes % 8.5 %; Neutrophils # 7.6 K/mcL (1.6-8.9); Platelet Count 225 K/mcL (140-400); Red Blood Count 2.78 M/mcL (4.19-5.50); Red Cell Distribution Width 12.9 % (11.5-14.5); Segmented Neutrophils % 82.1 %; White Blood Count 9.3 K/mcL (4.3-11.1)
[2020-07-17 03:25] LABS: INR 1.5; Prothrombin Time 17.2 Seconds (9.4-12.1)
[2020-07-17 03:43] LABS: BUN/Creatinine Ratio 23 (6-26); Blood Urea Nitrogen 29 mg/dL (8-23); C-Reactive Protein 75 mg/L (Less than 10); Calcium 8.1 mg/dL (8.6-10.3); Carbon Dioxide 23 mEq/L (23-29); Chloride 105 mEq/L (98-107); Glucose 208 mg/dL (70-105); Magnesium 1.8 mg/dL (1.6-2.6); Osmolality,Calculated 290 (280-300); Potassium 4.2 mEq/L (3.5-5.1); Sodium 134 mEq/L (136-145); eGFR For African Americans > 60 (> 60); eGFR For Non-African Americans 56 (> 60)
[2020-07-17 03:49] LABS: Troponin I 0.04 ng/mL (< 0.04)
[2020-07-17 04:48] LABS: Bilirubin,Urine Negative (Negative); Blood,Urine Negative (Negative); Clarity,Urine Clear (Clear); Color,Urine Light-Yellow (Yellow); Glucose,Urine (UA) 50 mg/dL (Normal); Ketones,Urine Negative (Negative); Leukocyte Esterase,Urine Negative (Negative); Mucus,Urine Few per lpf (None-Few); Nitrite,Urine Negative (Negative); PH,Urine 5.5 pH Units (5.0-8.0); Protein,Urine Negative (Neg-Trace); RBC,Urine 0-3 per hpf (0-3); Specific Gravity,Urine 1.011 (1.010-1.025); Squamous Epithelial Cell,Urine Few per hpf (None-Few); Urobilinogen,Urine Normal (Normal); WBC,Urine 0-3 per hpf (0-3)
[2020-07-17] MEDS: *HR* Heparin 5,000 UNIT/ML VIAL SQ SCH ×2 (05:53→16:59)
[2020-07-17] MEDS: Insulin LISPRO 300 UNITS/3 ML VIAL SUBQ SCH ×4 (08:33→22:54)
[2020-07-17] MEDS: Piperacillin/Tazobactam 3.375 GM in 0.9 % Sodium Chloride Mini Bag 100 ML IVPB SCH ×2 (13:14→22:56)
[2020-07-17] MEDS: lisinopriL 5 MG TABLET PO SCH (13:15)
[2020-07-17] MEDS: Furosemide 20 MG TABLET PO SCH (13:15)
[2020-07-17] MEDS: Isosorbide MONOnitrate (24 HR) 30 MG TAB.ER.24H PO SCH (13:15)
[2020-07-17] MEDS: Aspirin 81 MG TAB.CHEW PO SCH (13:16)
[2020-07-17] MEDS: Metoprolol XL (24 HR) Succ 25 MG TAB.ER.24H PO SCH (13:17)
[2020-07-17] MEDS: DAPTOmycin 500 MG in 0.9 % Sodium Chloride 100 ML IVPB SCH (16:59)
[2020-07-17 20:36] LABS: Estimated Average Glucose 146 mg/dl; Hemoglobin A1C 6.7 %
[2020-07-18] MEDS: Piperacillin/Tazobactam 3.375 GM in 0.9 % Sodium Chloride Mini Bag 100 ML IVPB SCH ×3 (06:14→20:20)
[2020-07-18] MEDS: *HR* Heparin 5,000 UNIT/ML VIAL SQ SCH ×2 (06:14→17:23)
[2020-07-18 07:16] LABS: Basophils % 0.3 %; Eosinophils # 0.1 K/mcL (0.0-0.6); Eosinophils % 1.5 %; Hematocrit 22.3 % (37.5-50.1); Hemoglobin 7.5 g/dL (12.9-16.9); Immature Granulocytes % 0.4 % (0-4); Mean Corpuscular HGB Conc 33.6 g/dL (31.6-35.5); Mean Corpuscular Hemoglobin 30.5 pg (28.0-33.3); Mean Corpuscular Volume 90.7 fL (83.0-100.0); Mean Platelet Volume 9.8 fL (9.4-12.4); Monocytes # 0.8 K/mcL (0.0-1.3); Monocytes % 10.3 %; Neutrophils # 5.5 K/mcL (1.6-8.9); Platelet Count 210 K/mcL (140-400); Red Blood Count 2.46 M/mcL (4.19-5.50); Segmented Neutrophils % 74.5 %; White Blood Count 7.4 K/mcL (4.3-11.1)
[2020-07-18 07:32] LABS: Calcium 7.9 mg/dL (8.6-10.3); Potassium 4.4 mEq/L (3.5-5.1)
[2020-07-18] MEDS: Metoprolol XL (24 HR) Succ 25 MG TAB.ER.24H PO SCH (08:48)
[2020-07-18] MEDS: Aspirin 81 MG TAB.CHEW PO SCH (08:48)
[2020-07-18] MEDS: Isosorbide MONOnitrate (24 HR) 30 MG TAB.ER.24H PO SCH (08:48)
[2020-07-18] MEDS: Furosemide 20 MG TABLET PO SCH (08:49)
[2020-07-18] MEDS: lisinopriL 5 MG TABLET PO SCH (08:49)
[2020-07-18] MEDS: Insulin LISPRO 300 UNITS/3 ML VIAL SUBQ SCH ×4 (08:54→21:20)
[2020-07-18] MEDS ORDERED: 0.9 % Sodium Chloride 250 ML IVC SCH (09:30)
[2020-07-18] MEDS: DAPTOmycin 500 MG in 0.9 % Sodium Chloride 100 ML IVPB SCH (13:28)
[2020-07-18 19:28] LABS: Hematocrit 29.4 % (37.5-50.1)
[2020-07-18 19:32] LABS: Hemoglobin 9.6 g/dL (12.9-16.9)
[2020-07-19] MEDS: *HR* Heparin 5,000 UNIT/ML VIAL SQ SCH ×2 (05:12→17:23)
[2020-07-19] MEDS: Piperacillin/Tazobactam 3.375 GM in 0.9 % Sodium Chloride Mini Bag 100 ML IVPB SCH ×3 (05:12→21:57)
[2020-07-19 05:51] LABS: Basophils % 0.3 %; Eosinophils # 0.1 K/mcL (0.0-0.6); Eosinophils % 1.7 %; Hematocrit 26.8 % (37.5-50.1); Hemoglobin 8.9 g/dL (12.9-16.9); Immature Granulocytes % 0.4 % (0-4); Lymphocytes # 0.9 K/mcL (0.6-4.6); Lymphocytes % 11.8 %; Mean Corpuscular HGB Conc 33.2 g/dL (31.6-35.5); Mean Corpuscular Hemoglobin 29.8 pg (28.0-33.3); Mean Corpuscular Volume 89.6 fL (83.0-100.0); Mean Platelet Volume 9.7 fL (9.4-12.4); Monocytes # 0.8 K/mcL (0.0-1.3); Monocytes % 10.4 %; Neutrophils # 5.8 K/mcL (1.6-8.9); Platelet Count 204 K/mcL (140-400); Red Blood Count 2.99 M/mcL (4.19-5.50); Red Cell Distribution Width 13.2 % (11.5-14.5); Segmented Neutrophils % 75.4 %; White Blood Count 7.7 K/mcL (4.3-11.1)
[2020-07-19 06:07] LABS: Potassium 4.4 mEq/L (3.5-5.1)
[2020-07-19] MEDS: Insulin LISPRO 300 UNITS/3 ML VIAL SUBQ SCH ×4 (07:36→21:52)
[2020-07-19] MEDS: Metoprolol XL (24 HR) Succ 25 MG TAB.ER.24H PO SCH (08:44)
[2020-07-19] MEDS: lisinopriL 5 MG TABLET PO SCH (08:44)
[2020-07-19] MEDS: Aspirin 81 MG TAB.CHEW PO SCH (08:45)
[2020-07-19] MEDS: Isosorbide MONOnitrate (24 HR) 30 MG TAB.ER.24H PO SCH (08:45)
[2020-07-19] MEDS: DAPTOmycin 500 MG in 0.9 % Sodium Chloride 100 ML IVPB SCH (11:28)
[2020-07-20 00:49] LABS: Basophils % 0.4 %; Eosinophils # 0.1 K/mcL (0.0-0.6); Eosinophils % 1.7 %; Hematocrit 26.5 % (37.5-50.1); Hemoglobin 9.1 g/dL (12.9-16.9); Immature Granulocytes % 0.4 % (0-4); Mean Corpuscular HGB Conc 34.3 g/dL (31.6-35.5); Mean Corpuscular Hemoglobin 30.5 pg (28.0-33.3); Mean Corpuscular Volume 88.9 fL (83.0-100.0); Mean Platelet Volume 9.9 fL (9.4-12.4); Monocytes # 0.7 K/mcL (0.0-1.3); Monocytes % 8.2 %; Neutrophils # 6.5 K/mcL (1.6-8.9); Platelet Count 209 K/mcL (140-400); Red Blood Count 2.98 M/mcL (4.19-5.50); Red Cell Distribution Width 13.2 % (11.5-14.5); Segmented Neutrophils % 77.3 %; White Blood Count 8.4 K/mcL (4.3-11.1)
[2020-07-20 01:08] LABS: Calcium 8.1 mg/dL (8.6-10.3); Potassium 4.5 mEq/L (3.5-5.1)
[2020-07-20] MEDS: *HR* Heparin 5,000 UNIT/ML VIAL SQ SCH ×2 (05:38→16:59)
[2020-07-20] MEDS: Piperacillin/Tazobactam 3.375 GM in 0.9 % Sodium Chloride Mini Bag 100 ML IVPB SCH ×3 (05:38→20:36)
[2020-07-20] MEDS: lisinopriL 5 MG TABLET PO SCH (09:05)
[2020-07-20] MEDS: Aspirin 81 MG TAB.CHEW PO SCH (09:05)
[2020-07-20] MEDS: Metoprolol XL (24 HR) Succ 25 MG TAB.ER.24H PO SCH (09:05)
[2020-07-20] MEDS: Isosorbide MONOnitrate (24 HR) 30 MG TAB.ER.24H PO SCH (09:05)
[2020-07-20] MEDS: Insulin LISPRO 300 UNITS/3 ML VIAL SUBQ SCH ×4 (09:06→20:21)
[2020-07-20] MEDS: DAPTOmycin 500 MG in 0.9 % Sodium Chloride 100 ML IVPB SCH (14:43)
[2020-07-21] MEDS: *HR* Heparin 5,000 UNIT/ML VIAL SQ SCH (04:57)
[2020-07-21] MEDS: Piperacillin/Tazobactam 3.375 GM in 0.9 % Sodium Chloride Mini Bag 100 ML IVPB SCH (04:57)
[2020-07-21 05:38] LABS: Hemoglobin 8.9 g/dL (12.9-16.9); Mean Corpuscular Hemoglobin 29.9 pg (28.0-33.3); Mean Corpuscular Volume 90.6 fL (83.0-100.0); Mean Platelet Volume 9.9 fL (9.4-12.4); Platelet Count 216 K/mcL (140-400); Red Blood Count 2.98 M/mcL (4.19-5.50); Red Cell Distribution Width 13.3 % (11.5-14.5); White Blood Count 7.6 K/mcL (4.3-11.1)
[2020-07-21 05:58] LABS: Calcium 8.1 mg/dL (8.6-10.3); Potassium 4.4 mEq/L (3.5-5.1)
[2020-07-21] MEDS: Insulin LISPRO 300 UNITS/3 ML VIAL SUBQ SCH ×2 (09:06→12:51)
[2020-07-21] MEDS: Furosemide 20 MG TABLET PO SCH (09:10)
[2020-07-21] MEDS: Metoprolol XL (24 HR) Succ 25 MG TAB.ER.24H PO SCH (09:10)
[2020-07-21] MEDS: Isosorbide MONOnitrate (24 HR) 30 MG TAB.ER.24H PO SCH (09:10)
[2020-07-21] MEDS: lisinopriL 5 MG TABLET PO SCH (09:11)
[2020-07-21] MEDS: Aspirin 81 MG TAB.CHEW PO SCH (10:21)
[2020-07-21 11:46] VITALS: BP 148/76
[2020-07-21] MEDS ORDERED: levoFLOXacin 750 MG/150 ML 750 MG/150 ML BAG IVPB SCH (15:00)
[2020-07-21] MEDS ORDERED: MetroNIDAZOLE 500 MG/100 ML 500 MG/100 ML BAG IVPB SCH (16:00)
[2020-07-22] MEDS ORDERED: Metoprolol XL (24 HR) Succ 25 MG TAB.ER.24H PO SCH (09:00)
== END 2020-07-21 15:00 | disposition short-term general hospital (02) | DRG 871 ==
LOC: 3NENU → SUATTDRO 07-17 00:42
PROVIDERS: ADMIT Internal Medicine; ATTEND General Practice